=== PATIENT | female | born 1950 | race Caucasian/White ===

== ENCOUNTER → 2016-09-16 | Outpatient (CLI) | payer MEDICARE, OTHER ==
[2016-09-16 20:05] LABS: CALCIUM LEVEL 9.3 MG/DL (8.8-10.2); CREATININE FOR GFR 1.43 MG/DL (0.55-1.02)
== END ==
LOC: M LAB 10:14
PROVIDERS: ATTEND Emergency Medicine
DX: D37.8 Neoplasm of uncertain behavior of other specified digestive organs (principal)

== ENCOUNTER → 2016-11-03 | Outpatient (REF) | payer MEDICARE, OTHER ==
[2016-11-03 12:32] LABS: ANION GAP 7 MEQ/L (8-16); BLOOD UREA NITROGEN 27 MG/DL (7-18); CALCIUM LEVEL 8.9 MG/DL (8.8-10.2); CARBON DIOXIDE LEVEL 28 MEQ/L (21-32); CHLORIDE LEVEL 109 MEQ/L (98-107); CREATININE FOR GFR 0.89 MG/DL (0.55-1.02); GLOMERULAR FILTRATION RATE > 60.0 (>45); GLUCOSE, FASTING 145 MG/DL (80-110); POTASSIUM SERUM 4.9 MEQ/L (3.5-5.1); SODIUM LEVEL 144 MEQ/L (136-145)
== END ==
LOC: M LABDRWAD 11:58
PROVIDERS: ATTEND Emergency Medicine
DX: E11.9 Type 2 diabetes mellitus without complications (principal)

== ENCOUNTER → 2017-05-17 | Outpatient (REF) | payer MEDICARE, OTHER ==
[2017-05-17 12:27] LABS: BASO % 0.7 % (0.0-1.0); EOS # 0.2 K/mm3 (0.0-0.50); EOS % 2.9 % (0.0-3.0); LARGE UNSTAINED CELL # 0.2 K/mm3 (0.0-0.4); LARGE UNSTAINED CELL % 2.6 % (0.0-4.0); LYMPH # 1.8 K/mm3 (1.5-4.5); MEAN CORPUSCULAR HEMOGLOBIN 31.3 pg (27.0-33.0); MEAN CORPUSCULAR HGB CONC 33.7 g/dl (32.0-36.5); MEAN CORPUSCULAR VOLUME 92.8 fl (80.0-96.0); MONO # 0.4 K/mm3 (0.0-0.8); MONO % 6.4 % (0.0-5.0); NEUTROPHILS # 3.9 K/mm3 (1.8-7.7); NEUTROPHILS % 60.4 % (36.0-66.0); PLATELET COUNT, AUTOMATED 251 k/mm3 (150-450); RED CELL DISTRIBUTION WIDTH 13.5 % (11.5-14.5); WHITE BLOOD COUNT 6.5 K/mm3 (4.0-10.0)
[2017-05-17 12:40] LABS: ALBUMIN 3.6 GM/DL (3.2-5.2); ALBUMIN/GLOBULIN RATIO 1.09 (1.00-1.93); ALKALINE PHOSPHATASE 65 U/L (45-117); ALT/SGPT 16 U/L (12-78); ANION GAP 6 MEQ/L (8-16); AST/SGOT 7 U/L (15-37); BILIRUBIN,TOTAL 0.4 MG/DL (0.2-1.0); BLOOD UREA NITROGEN 18 MG/DL (7-18); CALCIUM LEVEL 9.1 MG/DL (8.8-10.2); CARBON DIOXIDE LEVEL 30 MEQ/L (21-32); CHLORIDE LEVEL 108 MEQ/L (98-107); CHOLESTEROL LEVEL 175 MG/DL (<200); GLOMERULAR FILTRATION RATE > 60.0 (>45); GLUCOSE, FASTING 139 MG/DL (80-110); SODIUM LEVEL 144 MEQ/L (136-145); TOTAL PROTEIN 6.9 GM/DL (6.4-8.2); TRIGLYCERIDES LEVEL 140 MG/DL (<150)
== END ==
LOC: M LAB REF 08:10
PROVIDERS: ATTEND Family Medicine
DX: E11.9 Type 2 diabetes mellitus without complications (principal)

== ENCOUNTER → 2017-11-08 | Outpatient (REF) | payer MEDICARE, OTHER ==
[2017-11-08 14:16] LABS: ALBUMIN 3.8 GM/DL (3.2-5.2); ALBUMIN/GLOBULIN RATIO 1.12 (1.00-1.93); ALKALINE PHOSPHATASE 72 U/L (45-117); ALT/SGPT 15 U/L (12-78); ANION GAP 9 MEQ/L (8-16); AST/SGOT 12 U/L (7-37); BILIRUBIN,TOTAL 0.4 MG/DL (0.2-1.0); BLOOD UREA NITROGEN 15 MG/DL (7-18); CALCIUM LEVEL 9.2 MG/DL (8.8-10.2); CARBON DIOXIDE LEVEL 29 MEQ/L (21-32); CHLORIDE LEVEL 105 MEQ/L (98-107); CREATININE FOR GFR 0.93 MG/DL (0.55-1.30); GLOMERULAR FILTRATION RATE > 60.0 (>45); GLUCOSE, FASTING 170 MG/DL (70-100); POTASSIUM SERUM 4.7 MEQ/L (3.5-5.1); SODIUM LEVEL 143 MEQ/L (136-145); TOTAL PROTEIN 7.2 GM/DL (6.4-8.2)
[2017-11-08 15:54] LABS: ESTIMATED AVERAGE GLUCOSE 171 MG/DL (60-110); HEMOGLOBIN A1c 7.6 %
== END ==
LOC: M LABDRWAD 12:37
DX: E11.36 Type 2 diabetes mellitus with diabetic cataract (principal)
CPT/HCPCS: 80053

== ENCOUNTER → 2018-02-07 | Outpatient (REF) | payer MEDICARE, OTHER ==
[2018-02-07 14:15] LABS: ALBUMIN 3.7 GM/DL (3.2-5.2); ALBUMIN/GLOBULIN RATIO 1.09 (1.00-1.93); ALKALINE PHOSPHATASE 66 U/L (45-117); ALT/SGPT 14 U/L (12-78); ANION GAP 6 MEQ/L (8-16); AST/SGOT 6 U/L (7-37); BILIRUBIN,TOTAL 0.4 MG/DL (0.2-1.0); BLOOD UREA NITROGEN 15 MG/DL (7-18); CALCIUM LEVEL 8.8 MG/DL (8.8-10.2); CARBON DIOXIDE LEVEL 29 MEQ/L (21-32); CHLORIDE LEVEL 107 MEQ/L (98-107); CHOLESTEROL LEVEL 158 MG/DL (<200); CHOLESTEROL RISK RATIO 2.872 (<5); GLOMERULAR FILTRATION RATE > 60.0 (>45); GLUCOSE, FASTING 144 MG/DL (70-100); HDL CHOLESTEROL 55 MG/DL (>40); LDL CHOLESTEROL 74.2 MG/DL (<100); NON-HDL-C 103 MG/DL; SODIUM LEVEL 142 MEQ/L (136-145); TOTAL PROTEIN 7.1 GM/DL (6.4-8.2); TRIGLYCERIDES LEVEL 144 MG/DL (<150)
[2018-02-07 14:37] LABS: CREATININE, URINE 21.7 MG/DL; MALB URINE SIEMENS 13.5 MG/L; MAU/CREAT RATIO 62.2 MCG/MG (0.0-30.0)
[2018-02-07 14:45] LABS: ESTIMATED AVERAGE GLUCOSE 174 MG/DL (60-110); HEMOGLOBIN A1c 7.7 %
== END ==
LOC: M LABDRWAD 13:33
DX: E11.36 Type 2 diabetes mellitus with diabetic cataract (principal)
CPT/HCPCS: 80053

== ENCOUNTER → 2018-10-25 | Outpatient (CLI) | payer MEDICARE, OTHER ==
--- NOTE | 2018-10-25 10:38 | REP ---
CHEST PA AND LATERAL: 10/25/2018. Clinical history: Dyspnea. Findings: No prior study. Lungs are hyperinflated. Some flattening of the diaphragms, increased AP diameter and prominent retrosternal clear space. Pulmonary arteries are prominent suggesting pulmonary artery hypertension on the basis of COPD. Some underlying basilar fibrotic changes and some peribronchial thickening which might reflect reactive airway disease or bronchitis. There is some increased density of the inferior aspect of the right hilum. It is slightly more prominent than on the left. The aorta is mildly calcified at the arch, unremarkable for age and without aneurysm. Bones were intact. There is no compression deformity or focal lesion. No cardiomegaly or pulmonary edema. Bony thorax without compression deformity. Some degenerative changes in the lower thoracic spine, greatest at T11-T12. No free air under the diaphragms. Impression: 1. Hyperinflation with COPD, some pulmonary artery hypertension suspected and some peribronchial thickening that might reflect reactive airway disease or bronchitis. 2. Some increased density and slight fullness of the inferior aspect of the right hilum compared to the left. I could not exclude a focal lesion here. CT scan of the chest recommended in the absence of any recent prior studies for comparison. Electronically Signed by Sixto Andrew MD 10/25/2018 02:20 P
== END ==
LOC: M ADAMS 08:31
PROVIDERS: ATTEND Physician Assistant
DX: R06.03 Acute respiratory distress (principal)

== ENCOUNTER → 2019-02-02 | Outpatient (REF) | payer MEDICARE, OTHER ==
[2019-02-02 16:49] LABS: BASO # 0.1 10^3/uL (0.0-0.2); BASO % 0.5 % (0.0-1.0); EOS # 0.6 10^3/uL (0.0-0.50); EOS % 6.5 % (0.0-3.0); HEMATOCRIT 37.2 % (36.0-47.0); HEMOGLOBIN 11.6 g/dl (12.0-15.5); LYMPH % 20.8 % (24.0-44.0); MEAN CORPUSCULAR HEMOGLOBIN 29.1 pg (27.0-33.0); MEAN CORPUSCULAR HGB CONC 31.2 g/dl (32.0-36.5); MEAN CORPUSCULAR VOLUME 93.2 fl (80.0-96.0); MONO # 0.7 10^3/uL (0.0-0.8); MONO % 7.2 % (0.0-5.0); NEUTROPHILS # 6.2 10^3/uL (1.8-7.7); NEUTROPHILS % 64.8 % (36.0-66.0); PLATELET COUNT, AUTOMATED 246 10^3/uL (150-450); RED BLOOD COUNT 3.99 10^6/uL (4.00-5.40); WHITE BLOOD COUNT 9.5 10^3/uL (4.0-10.0)
[2019-02-02 17:11] LABS: HEMOGLOBIN A1c 7.4 %
[2019-02-02 17:16] LABS: ALBUMIN 3.4 GM/DL (3.2-5.2); ALT/SGPT 20 U/L (12-78); BILIRUBIN,TOTAL 0.3 MG/DL (0.2-1.0); BLOOD UREA NITROGEN 20 MG/DL (7-18); CALCIUM LEVEL 8.4 MG/DL (8.8-10.2); CARBON DIOXIDE LEVEL 28 MEQ/L (21-32); CHLORIDE LEVEL 106 MEQ/L (98-107); CHOLESTEROL LEVEL 177 MG/DL (<200); CHOLESTEROL RISK RATIO 2.641 (<5); CREATININE FOR GFR 0.91 MG/DL (0.55-1.30); FREE T4 1.04 NG/DL (0.76-1.46); GLOMERULAR FILTRATION RATE > 60.0 (>39); GLUCOSE, FASTING 133 MG/DL (70-100); HDL CHOLESTEROL 67 MG/DL (>40); LDL CHOLESTEROL 89 MG/DL (<100); NON-HDL-C 110 MG/DL; SODIUM LEVEL 141 MEQ/L (136-145); TOTAL PROTEIN 7.2 GM/DL (6.4-8.2); TRIGLYCERIDES LEVEL 106 MG/DL (<150)
== END ==
LOC: M SFHCADAM 08:19
PROVIDERS: ATTEND Family Medicine
DX: E11.9 Type 2 diabetes mellitus without complications (principal); E78.5 Hyperlipidemia, unspecified; I10 Essential (primary) hypertension

== ENCOUNTER → 2019-06-30 | Outpatient (CLI) | payer MEDICARE, OTHER ==
[2019-06-30 18:05] LABS: BASO # 0.1 10^3/uL (0.0-0.2); BASO % 0.8 % (0.0-1.0); EOS # 0.2 10^3/uL (0.0-0.5); EOS % 3.6 % (0.0-3.0); HEMATOCRIT 39.5 % (36.0-47.0); HEMOGLOBIN 12.6 g/dl (12.0-15.5); LYMPH # 1.7 10^3/uL (1.5-5.0); LYMPH % 26.5 % (24.0-44.0); MEAN CORPUSCULAR HEMOGLOBIN 30.3 pg (27.0-33.0); MEAN CORPUSCULAR HGB CONC 31.9 g/dl (32.0-36.5); MONO # 0.6 10^3/uL (0.0-0.8); MONO % 9.6 % (0.0-5.0); NEUTROPHILS # 3.8 10^3/uL (1.5-8.5); NEUTROPHILS % 59.2 % (36.0-66.0); PLATELET COUNT, AUTOMATED 229 10^3/uL (150-450); RED BLOOD COUNT 4.16 10^6/uL (4.00-5.40); WHITE BLOOD COUNT 6.4 10^3/uL (4.0-10.0)
[2019-06-30 18:10] LABS: ALBUMIN 3.9 GM/DL (3.2-5.2); BILIRUBIN,TOTAL 0.5 MG/DL (0.2-1.0); CALCIUM LEVEL 9.3 MG/DL (8.8-10.2); CHOLESTEROL RISK RATIO 2.507 (<5); CREATININE FOR GFR 0.99 MG/DL (0.55-1.30); POTASSIUM SERUM 4.6 MEQ/L (3.5-5.1); TOTAL PROTEIN 7.2 GM/DL (6.4-8.2)
[2019-06-30 18:19] LABS: HEMOGLOBIN A1c 6.9 %
[2019-06-30 18:32] LABS: CREATININE, URINE 41.3 MG/DL; MAU/CREAT RATIO 48.4 MCG/MG (0.0-30.0)
== END ==
LOC: M LABDRWAD 08:49
PROVIDERS: ATTEND Family Medicine
DX: E11.36 Type 2 diabetes mellitus with diabetic cataract (principal)

== ENCOUNTER → 2020-09-17 | Outpatient (REF) | payer MEDICARE, OTHER ==
[2020-09-18 13:26] LABS: BASO # 0.1 10^3/uL (0.0-0.2); BASO % 0.8 % (0.0-1.0); EOS # 0.2 10^3/uL (0.0-0.5); EOS % 2.6 % (0.0-3.0); HEMATOCRIT 40.2 % (36.0-47.0); HEMOGLOBIN 12.7 g/dl (12.0-15.5); LYMPH # 2.1 10^3/uL (1.5-5.0); LYMPH % 27.2 % (24.0-44.0); MEAN CORPUSCULAR HEMOGLOBIN 29.2 pg (27.0-33.0); MEAN CORPUSCULAR HGB CONC 31.6 g/dl (32.0-36.5); MEAN CORPUSCULAR VOLUME 92.4 fl (80.0-96.0); MONO # 0.6 10^3/uL (0.0-0.8); MONO % 8.1 % (0.0-5.0); NEUTROPHILS # 4.7 10^3/uL (1.5-8.5); NEUTROPHILS % 61.2 % (36.0-66.0); PLATELET COUNT, AUTOMATED 272 10^3/uL (150-450); RED BLOOD COUNT 4.35 10^6/uL (4.00-5.40); WHITE BLOOD COUNT 7.6 10^3/uL (4.0-10.0)
[2020-09-18 14:06] LABS: HEMOGLOBIN A1c 7.2 %
[2020-09-18 14:15] LABS: BILIRUBIN,TOTAL 0.7 MG/DL (0.2-1.0); CALCIUM LEVEL 9.7 MG/DL (8.8-10.2); CHOLESTEROL RISK RATIO 2.703 (<5); CREATININE FOR GFR 1.07 MG/DL (0.55-1.30); GLOMERULAR FILTRATION RATE 53.8 (>39); POTASSIUM SERUM 5.8 MEQ/L (3.5-5.1); TOTAL PROTEIN 7.3 GM/DL (6.4-8.2)
== END ==
LOC: M LABDRWAD 12:39
PROVIDERS: ATTEND Physician Assistant Medical
DX: E11.9 Type 2 diabetes mellitus without complications (principal); E78.2 Mixed hyperlipidemia; K21.9 Gastro-esophageal reflux disease without esophagitis

== ENCOUNTER → 2020-09-18 | Outpatient (REF) | payer MEDICARE, OTHER ==
[2020-09-18 14:05] LABS: MALB URINE SIEMENS 36.5 MG/L; MAU/CREAT RATIO 20.3 MCG/MG (0.0-30.0)
== END ==
LOC: M LAB REF 12:42
PROVIDERS: ATTEND Physician Assistant Medical
DX: E11.9 Type 2 diabetes mellitus without complications (principal); E78.2 Mixed hyperlipidemia; K21.9 Gastro-esophageal reflux disease without esophagitis

== ENCOUNTER 2020-10-17 08:00 | Inpatient (IN) | payer MEDICARE, OTHER ==
[2020-10-17] VITALS (7 sets, daily range): BP systolic 104–168; BP diastolic 48–75
[~2020-10-17] VITALS: Ht 160 cm; Wt 61.5 kg
--- OUTSIDE RECORDS SUMMARY | 2020-10-17 08:05 | CCD | Continuity of Care Document ---
Author Author Krystal CASH AR Organization Unknown Address [address] [place] [address] Phone [phone] Care Team Providers Care Hotel Operations Manager Name Role Phone Helio Rizo MD AUTM [phone] Jesús Goode MD AUTM [phone] [facility] - Gastroenterology AUTM Problems Active Problems Provider Date Type 2 diabetes mellitus Karla Graves M.D. Onset: 12/2010 Essential hypertension Karla Graves M.D. Onset: 01/05 Mixed hyperlipidemia Karla Graves M.D. Onset: 011 Social History Type Date Description Comments Sex Unknown Tobacco Use Start: Unknown End: Unknown Current Cigarette Sm oker Packs Daily 1 Tobacco Use Start: Unknown Never Used Smokeless Tobacco ETOH Use Denies alcohol use Tobacco Use Reviewed: 06/12/20 Patient is a current smoker, smokes every day has cut down to 4-5 cigarettes a day from a pack or more. She is a stress smoker. Smoking since age 16. Recreational Drug Use Denies Drug Use Smoking Status Reviewed: 09/14/20 Patient is a current smoker, smokes every day has cut down to 4-5 cigarettes a day from a pack or more. She is a stress smoker. Smoking since age 16. Exercise Type/Frequency Exercises regularly Sun Exposure Does not use sunscreen Seat Belt/Car Seat Always uses seat belt Smoke Alarms Yes Smoke Alarms Carbon Monoxide Detector: Yes Allergies, Adverse Reactions, Alerts Active Allergies Reaction Severity Comments Date Penicillin SOB, feels funny 05/18/2012 Seafood 11/22/2013 Inactive Allergies NKDA 09/07/2004 Medications Active Medications SIG Qnty Indications Ordering Provide r Date Sucralfate 1gm Tablets take 1 tablet by mouth up to four times daily before meals and at bedtime 360tabs K21 .9 Karla Graves M.D. 09/14/2020 Pantoprazole Sodium 40mg Tablets D R take one tablet by mouth every day for heartburn/acid reflux 30tabs K20. 9 Karla Graves M.D. 09/14/2020 Famotidine 40mg Tablets take one tablet by mouth every evening 90tabs K21.9 Karla Graves M.D. 05/2020 Metformin HCL 1000mg Tablets take one tablet by mouth twice a day with meals for diabetes 180tabs E11.9 Karla Graves M.D. 03/12/2020 Furosemide 20mg Tablets take one tablet by mouth every morning 90tabs I10 Karla Graves M.D. 05/2020 Proair HFA 108(90Base) mcg/Act Aer osol 2 puffs every 4 hours as needed 8.500gm R05 Karla Graves M.D. 11/28/2018 Accu-Chek Multiclix Lancets Misc use to check blood glucose up to twice a day 100units Karla Graves M.D. 12/11/2012 Atenolol 25mg Tablets 1 by mouth every day 90tabs I10 Karla Graves M.D. 012 Accu-Chek Joanna Glucometer René e for testing bid Sample 250.02 Karla Graves M.D. 011 Accu-Chek Joanna Test Strips Strip s for use with Glucometer for bid testing 100units 250.02 Brandy Graves M.D. 02/11/2011 Crestor 5mg Tablets 1 by mouth every day 90tabs E11.9 Karla Graves M.D. 05/16/2008 Alcohol Swabs use twice daily as directed 1Box 250.02 Karla Dumont ams, M.D. 03/04/2005 Asa 81mg Tablets 1 Tab PO OD Unknown Tylenol 325mg Tablets every 4-6 hours as needed for headaches Unknown History Medications Dexilant 60mg Capsules DR take one tablet by mouth every day for heartburn/acid reflux 90caps K20.9 Karla Graves M.D. 06/12/2020 - 09/14/2020 Immunizations CPT Code Status Date Vaccine Lot # [id number] Given 06/12/2019 Influenza Virus Vaccine, Quadrivalent,age 3 and up,multidose vial [id number] Q2038 Given 05/09/2018 Influenza Vaccine (Fluzone)( medicare) [id number] 25574 Given 05/09/2018 Influenza Virus Vaccine, Quadrivalent,age 3 and up,multidose vial Q2038 Given 05/23/2017 Influenza Vaccine (Fluzone)( medicare) [id number] 94744 Given 05/23/2017 Pneumococcal Vaccine [id number] Q2038 Given 07/05/2016 Influenza Vaccine (Fluzone)( medicare) [id number] 88271 Given 09/02/2015 Prevnar 13 For Adults [id number] 53405 Given 07/14/2015 Zostavax Q2038 Given 06/18/2015 Influenza Vaccine (Fluzone)( medicare) [id number] 87881 Given 05/29/2013 Influenza Vaccination [id number] 74146 Given 05/30/2012 Influenza Vaccination 26803 Given 05/30/2012 Influenza Vaccination [id number] 74149 Given 03/30/2012 Boostrix (Tdap) Tetnus, Diphtheria Toxoids & Acellular Pertussis [id number] 95632 Given 05/25/2011 Influenza Vaccination [id number] 55890 Given 05/26/2010 Influenza Vaccination/preser vative free [id number] 40602 Given 06/23/2009 Influenza Vaccination [id number] Vital Signs Date Vital Result Comment 09/14/2020 8:15am BP Systolic 173 mmHg BP Diastolic 83 mmHg BP Systolic Recheck 148 mmHg BP Diastolic Recheck 83 mmHg Heart Rate 85 /min Body Temperature 97.6 F Respiratory Rate 20 /min Height 63 inches 5'3" Weight 143.00 lb O2 % BldC Oximetry 99 % Peak Expiratory Flow Rate 317 Estimated Peak Flow Rate [place] Body Weight 115 lb BMI (Body Mass Index) 25.3 kg/m2 06/12/2020 10:37am BP Systolic 140 mmHg BP Diastolic 65 mmHg Heart Rate 82 /min Body Temperature 97.7 F Respiratory Rate 18 /min Height 63 inches 5'3" Weight 151.50 lb O2 % BldC Oximetry 99 % Peak Expiratory Flow Rate 310 Estimated Peak Flow Rate [place] Body Weight 115 lb BMI (Body Mass Index) 26.8 kg/m2 Results Test Acquired Date Facility Test Result H/L Range Note Microalbumin Random 09/18/[address] [facility] [place] [address] [phone] Creatinine, Urine 179.0 mg/dL Normal Malb Urine Siemens 36.5 mg/L Normal Remy/Creat Ratio 20.3 MCG/MG Normal 0.0-30.0 1 Hemoglobin A1c 09/17/2020 [facility] nter [phone] Hemoglobin A1c 7.2 % Normal 2 Estimated Average Glucose 160 mg/dL High 60-110 Lipid Panel 09/17/2020 [facility] nter [phone] Triglycerides Level 140 mg/dL Normal <150 Cholesterol Level 146 mg/dL Normal <200 HDL Cholesterol 54 mg/dL Normal >40 LDL Cholesterol 64 mg/dL Normal <100 Non-HDL-C 92 mg/dL Normal Cholesterol Risk Ratio 2.703 Normal <5 Comprehensive Metabolic Profil 09/17/2020 [facility] [phone] Glucose, Fasting 142 mg/dL High 70-100 Blood Urea Nitrogen 15 mg/dL Normal 7-18 Creatinine For GFR 1.07 mg/dL Normal 0.55-1.30 Glomerular Filtration Rate 53.8 Normal >39 3 Sodium Level 140 mEq/L Normal 136-145 Potassium Serum 5.8 mEq/L High 3.5-5.1 Chloride Level 106 mEq/L Normal 98-107 Carbon Dioxide Level 27 mEq/L Normal 21-32 Anion Gap 7 mEq/L Low 8-16 Calcium Level 9.7 mg/dL Normal 8.8-10.2 Ast/Sgot 7 U/L Normal 7-37 Alt/SGPT 13 U/L Normal 12-78 Alkaline Phosphatase 55 U/L Normal 45-117 Bilirubin,Total 0.7 mg/dL Normal 0.2-1.0 Total Protein 7.3 GM/DL Normal 6.4-8.2 Albumin 4.0 GM/DL Normal 3.2-5.2 Albumin/Globulin Ratio 1.2 Normal 1.2-2.2 CBC With Differential 09/17/2020 [facility] [phone] White Blood Count 7.6 10 Normal 4.0-10.0 Red Blood Count 4.35 10 Normal 4.00-5.40 Hemoglobin 12.7 g/dL Normal 12.0-15.5 Hematocrit 40.2 % Normal 36.0-47.0 Mean Corpuscular Volume 92.4 fl Normal 80.0-96.0 Mean Corpuscular Hemoglobin 29.2 pg Normal 27.0-33.0 Mean Corpuscular HGB Conc 31.6 g/dL Low 32.0-36.5 Red Cell Distribution Width 13.2 % Normal 11.5-14.5 Platelet Count, Automated 272 10 Normal 150-450 Neutrophils % 61.2 % Normal 36.0-66.0 Lymph % 27.2 % Normal 24.0-44.0 [place] % 8.1 % High 0.0-5.0 Eos % 2.6 % Normal 0.0-3.0 Baso % 0.8 % Normal 0.0-1.0 Immature Granulocyte % 0.1 % Normal 0-3.0 Nucleated Red Blood Cell % 0.0 % Normal 0-0 Neutrophils # 4.7 10 Normal 1.5-8.5 Lymph # 2.1 10 Normal 1.5-5.0 [place] # 0.6 10 Normal 0.0-0.8 Eos # 0.2 10 Normal 0.0-0.5 Baso # 0.1 10 Normal 0.0-0.2 1 THE [place] [employer] ASSOC[employer] ATION STATES THAT MICROALBUMINURIA IS PRESENT IF THE MICROALBUMIN/CREATININE RATIO EXCEEDS 30 MCG/MG. THE THRESHOLD FOR CLINICAL ALBUMINURIA IS REACHED AT 300 MCG/MG. THE CLASSIFICATION OF A PATIENT SHOULD BE BASED UPON AT LEAST 2 OF 3 ABNORMAL RESULTS ON SPECIMENS COLLECTED WITHIN A 3 TO 6 MONTH TIME FRAME. 2 REFERENCE RANGES: <=5.6% NORMAL 5.7-6.4% SUGGESTS IMPAIRED GLUCOSE META BOLISM/PREDIABETIC >= 6.5% ABNORMAL 3 Units are mL/min/1.73 m2 Chronic Kidney Disease Staging per NKF: Stage I & II GFR >=60 Normal to Mildly Decreased Stage III GFR 30-59 Moderately Decreased Stage IV GFR 15-29 Severely Decreased Stage V GFR <15 Very Little GFR Left ESRD GFR <15 on POUCH MAKING MACHINE OPERATOR Procedures Date Code Description Status 06/12/2020 089557657 Diabetic Foot Exam Completed 07/12/2014 [id number] Mammogram Completed 06/11/2013 [id number] Bone Mineral Density Test Comple [place] Description No Information Available Encounters Type Date Location Provider Dx Diagnosis Office Visit 09/14/2020 8:15a Main Office Desirae Cash PA E11.9 Type 2 diabetes mellitus without complications I10 Essential (primary) hyperten layne E78.2 Mixed hyperlipidemia K21.9 Gastro-esophageal reflux dis ease without esophagitis Office Visit 06/12/2020 10:30a Main Office Desirae Cash PA Z00.00 Encntr for general adult medical exam w/o abnormal findings E11.9 Type 2 diabetes mellitus wit hout complications I10 Essential (primary) hyperten layne E78.2 Mixed hyperlipidemia K21.9 Gastro-esophageal reflux dis ease without esophagitis Assessments Date Code Description Provider 09/14/2020 E11.9 Type 2 diabetes mellitus without complications Desirae Cash PA 09/14/2020 I10 Essential (primary) hypertension Desirae Cash PA 09/14/2020 E78.2 Mixed hyperlipidemia Dseirae Cash PA 09/14/2020 K21.9 Gastro-esophageal reflux disease without esophagitis Desirae Cash PA 06/12/2020 Z00.00 Encounter for genera l adult medical examination without abnormal findings Desirae Cash PA 06/12/2020 E11.9 Type 2 diabetes mellitus without complications Desirae Cash PA 06/12/2020 I10 Essential (primary) hypertension Desirae Cash PA 06/12/2020 E78.2 Mixed hyperlipidemia Desirae Cash PA 06/12/2020 K21.9 Gastro-esophageal reflux disease without esophagitis Desriae Cash PA Plan of Treatment Future Appointment(s):* 12/14/2020 8:15 am - Desirae Cash PA at Main Office Functional Status Functional Condition Comment Date Status Bifocal glasses Active Independent with all ADL's Activ e Independent with all IADL's Acti ve Mental Status Mental Condition Comment Date Status None Active Referrals Refer to Reason for Referral Status Appt Date Mandaen Gastro GERD with esophagitis. needs consult and EGD please. Scheduled 09/15/2020 [address] [place] [address] [phone]
--- OUTSIDE RECORDS SUMMARY | 2020-10-17 08:05 | CCD | Continuity of Care Document ---
Author Author Krystal CASH HI Organization Unknown Address [address] [place] [address] Phone [phone] Care Team Providers Care Jig Boring Machine Set Up Operator Name Role Phone Helio Rizo MD AUTM [phone] Jesús Goode MD AUTM [phone] [facility] - Gastroenterology AUTM Problems Active Problems [...] SIG Qnty Indications Ordering Provide r Date Ondansetron 8mg Tablets Dispers take one by mouth twice a day as needed nausea 30tabs Karla Graves M.D. 09/21/2020 Sucralfate 1gm Tablets take 1 tablet by [...] CPT Code Status Date Vaccine Lot # [id number] Given 06/12/2019 Influenza Virus Vaccine, Quadrivalent,age 3 and up,multidose vial [id number] Q2038 Given 05/09/2018 Influenza Vaccine (Fluzone)( medicare) [id number] 56680 Given 05/09/2018 Influenza Virus Vaccine, Quadrivalent,age 3 and up,multidose vial Q2038 Given 05/23/2017 Influenza Vaccine (Fluzone)( medicare) [id number] 87430 Given 05/23/2017 Pneumococcal Vaccine [id number] Q2038 Given 07/05/2016 Influenza Vaccine (Fluzone)( medicare) [id number] 52239 Given 09/02/2015 Prevnar 13 For Adults [id number] 71994 Given 07/14/2015 Zostavax Q2038 Given 06/18/2015 Influenza Vaccine (Fluzone)( medicare) [id number] 50541 Given 05/29/2013 Influenza Vaccination [id number] 15550 Given 05/30/2012 Influenza Vaccination 83428 Given 05/30/2012 Influenza Vaccination [id number] 19485 Given 03/30/2012 Boostrix (Tdap) Tetnus, Diphtheria Toxoids & Acellular Pertussis [id number] 57192 Given 05/25/2011 Influenza Vaccination [id number] 55250 Given 05/26/2010 Influenza Vaccination/preser vative free [id number] 16848 Given 06/23/2009 Influenza Vaccination [id number] Vital Signs Date Vital Result Comment 09/14/2020 8:15am BP Systolic 173 mmHg BP Diastolic 83 mmHg BP Systolic Recheck 148 mmHg BP Diastolic Recheck 83 mmHg Heart Rate 85 /min Body Temperature 97.6 F Respiratory Rate 20 /min Height 63 inches 5'3" Weight 143.00 lb O2 % BldC Oximetry 99 % Peak Expiratory Flow Rate 317 Estimated Peak Flow Rate [place] Body Weight 115 lb BMI (Body Mass Index) 25.3 kg/m2 06/12/2020 10:37am BP Systolic 140 mmHg BP Diastolic 65 mmHg Heart Rate 82 /min Body Temperature 97.7 F Respiratory Rate 18 /min Height 63 inches 5'3" Weight 151.50 lb O2 % BldC Oximetry 99 % Peak Expiratory Flow Rate 310 Estimated Peak Flow Rate [place] Body Weight 115 lb BMI (Body Mass Index) 26.8 kg/m2 Results Test Acquired Date Facility Test Result H/L Range Note Microalbumin Random 09/18/2020 [facility] [place] [address] [phone] Creatinine, Urine 179.0 mg/dL Normal Malb Urine Siemens 36.5 mg/L Normal Remy/Creat Ratio 20.3 MCG/MG Normal 0.0-30.0 1 Hem[facility] [phone] Hemoglobin A1c 7.2 % Normal 2 Estimated Average Glucose 160 mg/dL High 60-110 Lipid Panel 09/17/2020 [facility] [phone] Triglycerides Level 140 mg/dL Normal <150 Cholesterol Level 146 mg/dL Normal <200 HDL Cholesterol 54 mg/dL Normal >40 LDL Cholesterol 64 mg/dL Normal <100 Non-HDL-C 92 mg/dL Normal Cholesterol Risk Ratio 2.703 Normal <5 Comprehensive Metabolic Profil 09/17/2020 [facility] [phone] Glucose, Fasting 142 mg/dL High 70-100 Blood [...] 1.2 Normal 1.2-2.2 CBC With Differential 09/17/2020 [facility] [phone] White Blood Count 7.6 10 Normal 4.0-10.0 [...] 36.0-66.0 Lymph % 27.2 % Normal 24.0-44.0 [place] % 8.1 % High 0.0-5.0 Eos % 2.6 % Normal 0.0-3.0 Baso % 0.8 % Normal 0.0-1.0 Immature Granulocyte % 0.1 % Normal 0-3.0 Nucleated Red Blood Cell % 0.0 % Normal 0-0 Neutrophils # 4.7 10 Normal 1.5-8.5 Lymph # 2.1 10 Normal 1.5-5.0 [place] # 0.6 10 Normal 0.0-0.8 Eos # 0.2 10 Normal 0.0-0.5 Baso # 0.1 10 Normal 0.0-0.2 1 THE [place] DIABETES ASSOCI ATION STATES THAT MICROALBUMINURIA IS [...] Little GFR Left ESRD GFR <15 on SHOOTER'S HELPER Procedures Date Code Description Status 06/12/2020 [id number] Diabetic Foot Exam Completed 07/12/2014 [id number] Mammogram Completed 06/11/2013 [id number] Bone Mineral Density Test Comple Coherent Labs Description No Information Available Encounters Type Date Location Provider Dx Diagnosis Office Visit 09/14/2020 8:15a Main Office Desirae Cash PA E11.9 Type 2 diabetes mellitus without complications I10 Essential (primary) hyperten layne E78.2 Mixed hyperlipidemia K21.9 Gastro-esophageal reflux dis ease without esophagitis F17.210 Nicotine dependence, cigaret precious, uncomplicated Office Visit 06/12/2020 10:30a Main Office Desirae [...] Desirae Cash PA 09/14/2020 E78.2 Mixed hyperlipidemia Desirae Cash PA 09/14/2020 K21.9 Gastro-esophageal reflux disease without esophagitis Desirae Cash PA 09/14/2020 F17.210 Nicotine dependence, cigarettes, uncomplicated Desirae Cash PA 06/12/2020 Z00.00 Encounter for genera l adult medical examination without abnormal findings Desirae Cash PA 06/12/2020 E11.9 Type 2 diabetes mellitus without complications Desirae Cash PA 06/12/2020 I10 Essential (primary) hypertension Desirae Cash PA 06/12/2020 E78.2 Mixed hyperlipidemia Desirae Cash PA 06/12/2020 K21.9 Gastro-esophageal reflux disease without esophagitis Desirae Cash PA Plan of Treatment Future Appointment(s):* 12/14/2020 8:15 am - Desirae Cash PA at Main Office Functional Status Functional Condition Comment Date Status Bifocal glasses Active Independent with all ADL's Activ e Independent with all IADL's Acti ve Mental Status Mental Condition Comment Date Status None Active Referrals Refer to Reason for Referral Status Appt Date Ca[facility] Gastro GERD with esophagitis. needs consult and EGD please. Scheduled 09/15/2020 [address] [place] [address] [phone]
--- OUTSIDE RECORDS SUMMARY | 2020-10-17 08:05 | CCD | Continuity of Care Document ---
Author Krystal Matthews RP-C Organization Unknown Address [address] [place] [address], [address] [place] [address] Phone [phone] Care Team Providers Care Interior Assemblies Installer Name Role Phone Desirae Roberts AUTM Problems Active Problems Provider Date Essential hypertension SAFIA Espinosa Onset: Social History Type Date Description Comments Sex Unknown ETOH Use Denies alcohol use Tobacco Use Start: Unknown Light tobacco smoker (10 or fewe r cigarettes/day) 4-5 Cigs per day Allergies, Adverse Reactions, Alerts Active Allergies Reaction Severity Comments Date Penicillin V 10/14/2020 Seafood 10/14/2020 Medications Active Medications SIG Qnty Indications Ordering Provide r Date Aspirin [address] Ley Unknown Crestor 5mg Tablets Daily Unknown Atenolol 25mg Tablets Daily Unknown Furosemide 20mg Tablets 1 by mouth every day Unknown Metformin HCL 500mg Tablets 2 tabs bid Unknown Sucralfate 1gm Tablets 1 gm by mouth four times a day Unknown Pantoprazole Sodium 40mg Tablets DR Daily Unknown Ondansetron 8mg Tablets Dispers bid prn Unknown Immunizations Description No Information Available Vital Signs Date Vital Result Comment 10/16/2020 12:53pm BP Systolic 130 mmHg BP Diastolic 70 mmHg Height 63 inches 5'3" Weight 132.00 lb BMI (Body Mass Index) 23.4 kg/m2 [place] Body Weight 115 lb Weight 59.875 kg BSA (Body Surface Area) 1.62 m2 Results Description No Information Available Procedures Description No Information Available Medical Devices Description No Information Available Encounters Description No Information Available Assessments Date Code Description Provider 10/16/2020 R11.2 Nausea with vomiting, unspecifie d SAFIA Espinosa 10/16/2020 R10.13 Epigastric pain SAFIA Palacios Plan of Treatment No Information Available Functional Status Description No Information Available Mental Status Description No Information Available Referrals Refer to Dr Reason for Referral Status Appt Date Agustín Estrada M.D. GERD w/esophagitis, EGD consult Sche duled 10/16/2020 [facility] [address], [address] [place] [address] [phone]
--- OUTSIDE RECORDS SUMMARY | 2020-10-17 08:05 | CCD | Continuity of Care Document ---
Author Author Krystal CASH DC Organization Unknown Address [address] [place] [address] Phone [phone] Care Team Providers Care Master Automotive Glass Technician Name Role Phone Helio Rizo MD AUTM [phone] Jesús Goode MD AUTM [phone] [facility] AUTM Problems Active Problems [...] CPT Code Status Date Vaccine Lot # [id number] Given 06/12/2019 Influenza Virus Vaccine, Quadrivalent,age 3 and up,multidose vial [id number] Q2038 Given 05/09/2018 Influenza Vaccine (Fluzone)( medicare) [id number] 68141 Given 05/09/2018 Influenza Virus Vaccine, Quadrivalent,age 3 and up,multidose vial Q2038 Given 05/23/2017 Influenza Vaccine (Fluzone)( medicare) [id number] 25835 Given 05/23/2017 Pneumococcal Vaccine [id number] Q2038 Given 07/05/2016 Influenza Vaccine (Fluzone)( medicare) [id number] 75261 Given 09/02/2015 Prevnar 13 For Adults [id number] 86614 Given 07/14/2015 Zostavax Q2038 Given 06/18/2015 Influenza Vaccine (Fluzone)( medicare) [id number] 43304 Given 05/29/2013 Influenza Vaccination [id number] 23395 Given 05/30/2012 Influenza Vaccination 17761 Given 05/30/2012 Influenza Vaccination [id number] 81266 Given 03/30/2012 Boostrix (Tdap) Tetnus, Diphtheria Toxoids & Acellular Pertussis [id number] 84139 Given 05/25/2011 Influenza Vaccination [id number] 19457 Given 05/26/2010 Influenza Vaccination/preser vative free [id number] 74533 Given 06/23/2009 Influenza Vaccination [id number] Vital Signs Date Vital Result Comment 09/14/2020 8:15am BP Systolic 173 mmHg BP Diastolic 83 mmHg BP Systolic Recheck 148 mmHg BP Diastolic Recheck 83 mmHg Heart Rate 85 /min Body Temperature 97.6 F Respiratory Rate 20 /min Height 63 inches 5'3" Weight 143.00 lb O2 % BldC Oximetry 99 % Peak Expiratory Flow Rate 317 Estimated Peak Flow Rate [place] Body Weight 115 lb BMI (Body Mass Index) 25.3 kg/m2 06/12/2020 10:37am BP Systolic 140 mmHg BP Diastolic 65 mmHg Heart Rate 82 /min Body Temperature 97.7 F Respiratory Rate 18 /min Height 63 inches 5'3" Weight 151.50 lb O2 % BldC Oximetry 99 % Peak Expiratory Flow Rate 310 Estimated Peak Flow Rate [place] Body Weight 115 lb BMI (Body Mass Index) 26.8 kg/m2 Results Test Acquired Date Facility Test Result H/L Range Note Microalbumin Random 09/18/[address] [facility] [place] [address] [phone] Creatinine, Urine 179.0 mg/dL Normal Malb Urine Siemens 36.5 mg/L Normal Remy/Creat Ratio 20.3 MCG/MG Normal 0.0-30.0 1 Hemoglobin A1c 09/17/2020 [facility] nter [phone] Hemoglobin A1c 7.2 % Normal 2 Estimated Average Glucose 160 mg/dL High 60-110 Lipid Panel 09/17/2020 [facility] [phone] Triglycerides Level 140 mg/dL Normal <150 Cholesterol Level 146 mg/dL Normal <200 HDL Cholesterol 54 mg/dL Normal >40 LDL Cholesterol 64 mg/dL Normal <100 Non-HDL-C 92 mg/dL Normal Cholesterol Risk Ratio 2.703 Normal <5 Comprehensive Metabolic Profil 09/17/2020 [facility] [phone] Glucose, Fasting 142 mg/dL High 70-100 Blood [...] 1.2 Normal 1.2-2.2 CBC With Differential 09/17/2020 [facility] [phone] White Blood Count 7.6 10 Normal 4.0-10.0 [...] 36.0-66.0 Lymph % 27.2 % Normal 24.0-44.0 [place] % 8.1 % High 0.0-5.0 Eos % 2.6 % Normal 0.0-3.0 Baso % 0.8 % Normal 0.0-1.0 Immature Granulocyte % 0.1 % Normal 0-3.0 Nucleated Red Blood Cell % 0.0 % Normal 0-0 Neutrophils # 4.7 10 Normal 1.5-8.5 Lymph # 2.1 10 Normal 1.5-5.0 [place] # 0.6 10 Normal 0.0-0.8 Eos # 0.2 10 Normal 0.0-0.5 Baso # 0.1 10 Normal 0.0-0.2 1 THE [place] DIAB[employer]ES ASSOC[employer] ATION STATES THAT MICROALBUMINURIA IS [...] Little GFR Left ESRD GFR <15 on MASTER AUTOMOTIVE GLASS TECHNICIAN Procedures Date Code Description Status 06/12/2020 [id number] Diabetic Foot Exam Completed 07/12/2014 [id number] Mammogram Completed 06/11/2013 [id number] Bone Mineral Density Test Comple [facility] Description No Information Available Encounters Type Date [...] to Reason for Referral Status Appt Date [facility] G[facility] with esophagitis. needs consult and EGD please. Scheduled 09/15/2020 [address] [place] [address] [phone]
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
--- OUTSIDE RECORDS SUMMARY | 2020-10-17 08:06 | CCD | Continuity of Care Document ---
Author Author Krystal CASH OR Organization Unknown Address [address] [place] [address] Phone [phone] Care Team Providers Care Manufacturing Supervisor Name Role Phone Helio Rizo MD AUTM [phone] Jesús Goode MD AUTM [phone] [facility] AUTM Problems Active Problems [...] CPT Code Status Date Vaccine Lot # [id number] Given 06/12/2019 Influenza Virus Vaccine, Quadrivalent,age 3 and up,multidose vial [id number] Q2038 Given 05/09/2018 Influenza Vaccine (Fluzone)( medicare) [id number] 76954 Given 05/09/2018 Influenza Virus Vaccine, Quadrivalent,age 3 and up,multidose vial [id number] Given 05/23/2017 Influenza Vaccine (Fluzone)( medicare) [id number] 07176 Given 05/23/2017 Pneumococcal Vaccine [id number] Q2038 Given 07/05/2016 Influenza Vaccine (Fluzone)( medicare) [id number] 30583 Given 09/02/2015 Prevnar 13 For Adults [id number] 57425 Given 07/14/2015 Zostavax Q2038 Given 06/18/2015 Influenza Vaccine (Fluzone)( medicare) [id number] 91348 Given 05/29/2013 Influenza Vaccination [id number] 62584 Given 05/30/2012 Influenza Vaccination 77324 Given 05/30/2012 Influenza Vaccination [id number] 32689 Given 03/30/2012 Boostrix (Tdap) Tetnus, Diphtheria Toxoids & Acellular Pertussis [id number] 19044 Given 05/25/2011 Influenza Vaccination [id number] 62409 Given 05/26/2010 Influenza Vaccination/preser vative free [id number] 98464 Given 06/23/2009 Influenza Vaccination [id number] Vital Signs Date Vital Result Comment 09/14/2020 8:15am BP Systolic 173 mmHg BP Diastolic 83 mmHg BP Systolic Recheck 148 mmHg BP Diastolic Recheck 83 mmHg Heart Rate 85 /min Body Temperature 97.6 F Respiratory Rate 20 /min Height 63 inches 5'3" Weight 143.00 lb O2 % BldC Oximetry 99 % Peak Expiratory Flow Rate 317 Estimated Peak Flow Rate [place] Body Weight 115 lb BMI (Body Mass Index) 25.3 kg/m2 06/12/2020 10:37am BP Systolic 140 mmHg BP Diastolic 65 mmHg Heart Rate 82 /min Body Temperature 97.7 F Respiratory Rate 18 /min Height 63 inches 5'3" Weight 151.50 lb O2 % BldC Oximetry 99 % Peak Expiratory Flow Rate 310 Estimated Peak Flow Rate [place] Body Weight 115 lb BMI (Body Mass Index) 26.8 kg/m2 Results Description No Information Available Procedures Date Code Description Status 06/12/2020 612106660 Diabetic Foot Exam Completed 07/12/2014 [id number] Mammogram Completed 06/11/2013 [id number] Bone Mineral Density Test Comple [facility] Description No Information Available Encounters Type Date Location Provider Dx Diagnosis Office Visit 06/12/2020 10:30a Main Office Desirae [...] esophagitis Desirae Cash PA Plan of Treatment 09/14/2020 - Desirae Cash PA* E11.9 Type 2 diabetes mellitus without complications* New Labs:* Hemoglobin A1c, Scheduled: 09/14/20 * Microalbumin Random, Scheduled: 09/14/20 * Follow up:* 3 months * Recommendations:* Get your labs done JOSE. This is VERY important * I10 Essential (primary) hypertension * E78.2 Mixed hyperlipidemia* New Labs:* Lipid Panel, Scheduled: 09/14/20 * Comprehensive Metabolic Profil, Scheduled: 09/14/20 * K21.9 Gastro-esophageal reflux disease without esophagitis* New Medication:* Sucralfate 1 gm - take 1 tablet by mouth up to four times daily before meals and at bedtime * New Labs:* CBC With Differential, Scheduled: 09/14/20 * Recommendations:* If you have not heard from our office by next week about an appointment with GI, please call here so we can check on this for you Functional Status Functional Condition Comment Date Status Bifocal glasses Active Independent with all ADL's Activ e Independent with all IADL's Acti ve Mental Status Mental Condition Comment Date Status None Active Referrals Refer to Reason for Referral Status Appt Date [facility] GERD with esophagitis. needs consult and EGD pl ease. Sent [address] [place] [address] [phone]
[2020-10-17] MEDS ORDERED: ATEN25TA PO (08:15)
[2020-10-17] MEDS ORDERED: ASPI81CH33 PO (08:15)
[2020-10-17] MEDS ORDERED: METF500T13 PO (08:15)
[2020-10-17] MEDS ORDERED: CRES5TAB PO (08:15)
[2020-10-17] MEDS ORDERED: ONDA8TAB8 (08:15)
[2020-10-17] MEDS ORDERED: PANT40TA29 (08:15)
[2020-10-17] MEDS ORDERED: NS 1,000 ML IV ONE (08:30)
[2020-10-17] MEDS ORDERED: ONDANSETRON 4MG/2ML VIAL IV ONE (08:30)
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
[2020-10-17 08:47] LABS: BASO % 0.5 % (0.0-1.0); EOS # 0.1 10^3/uL (0.0-0.5); EOS % 1.6 % (0.0-3.0); HEMOGLOBIN 12.4 g/dl (12.0-15.5); LYMPH # 1.1 10^3/uL (1.5-5.0); LYMPH % 17.4 % (24.0-44.0); MEAN CORPUSCULAR HEMOGLOBIN 29.4 pg (27.0-33.0); MEAN CORPUSCULAR HGB CONC 31.8 g/dl (32.0-36.5); MEAN CORPUSCULAR VOLUME 92.4 fl (80.0-96.0); MONO # 0.5 10^3/uL (0.0-0.8); NEUTROPHILS # 4.5 10^3/uL (1.5-8.5); NEUTROPHILS % 72.3 % (36.0-66.0); PLATELET COUNT, AUTOMATED 205 10^3/uL (150-450); RED BLOOD COUNT 4.22 10^6/uL (4.00-5.40); WHITE BLOOD COUNT 6.2 10^3/uL (4.0-10.0)
[2020-10-17] MEDS ORDERED: ISOVUE-370 76% 100ML VIAL As Ordered ONE (09:10)
[2020-10-17 09:21] LABS: ALBUMIN 3.9 GM/DL (3.2-5.2); BILIRUBIN,DIRECT 0.2 MG/DL (0.0-0.2); BILIRUBIN,TOTAL 0.8 MG/DL (0.2-1.0); CALCIUM LEVEL 8.9 MG/DL (8.8-10.2); CREATININE FOR GFR 1.21 MG/DL (0.55-1.30); GLOMERULAR FILTRATION RATE 46.7 (>39); POTASSIUM SERUM 3.9 MEQ/L (3.5-5.1)
--- NOTE | 2020-10-17 09:39 | REP ---
INDICATION: central chest pain, vomiting r/o mass. COMPARISON: Comparison chest CT study 26 February 2019.. TECHNIQUE: Helical scanning is acquired following the intravenous injection of 100 mL of Isovue 370. 3 mm axial images re-formatted. Coronal and sagittal MPR images are generated. FINDINGS: Preliminary digital seeing eye dog teacher radiographs are unremarkable. An air and fluid dilated esophagus is seen throughout the thoracic and cervical esophageal region. There is a soft tissue fullness at the gastroesophageal junction suggesting a distal esophageal mass. This measures approximately 2.4 x 3.7 cm. Esophageal malignancy must be suspected. There is no regional lymphadenopathy seen. No hilar or mediastinal mass or adenopathy is observed. No pleural or pericardial effusion is seen. There is good opacification of the pulmonary arterial tree and the aorta. There is no evidence of pulmonary embolus, aortic aneurysm or dissection. Vascular calcification is observed. There is some coronary artery calcification. Normal adrenal glands are seen. No bony destructive lesion is seen. Lung window settings show no evidence of infiltrate, atelectasis, or pulmonary nodule. IMPRESSION: Mass effect in the distal esophagus suggestive of an esophageal malignancy. Esophageal obstruction is evident in that the esophagus is moderately dilated and filled with ingested material and air. No evidence of adenopathy or metastatic disease.. <Electronically signed by Indio Mcdermott > 10/17/20 [id number]
--- NOTE | 2020-10-17 09:48 | REP ---
INDICATION: central chest pain, vomiting r/o mass. COMPARISON: Comparison CT study February 01, 2019.. TECHNIQUE: Helical scanning was acquired and 4 mm axial images are re-formatted. Coronal and sagittal MPR images were generated and reviewed. The contrast enhancement dose is 100 mL of intravenous Isovue 370. FINDINGS: Preliminary digital apple sorter radiograph shows a normal bowel gas pattern. Mass effect is again noted the gastroesophageal junction with dilation of the esophagus likely related to esophageal malignancy. There are 2 normal-sized celiac axis lymph nodes and 1 normal-sized para soft ARMANDO lymph node. No definite adenopathy. The liver and the spleen are normal in size and homogeneous in texture. No focal liver lesion is seen. Normal adrenal glands are seen. No abnormality is noted in the pancreas. The gallbladder contains calculi layering in the dependent portion of its lumen. Kidneys enhance symmetrically and are morphologically intact. No evidence of renal mass or hydronephrosis. There is extensive vascular calcification. 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 The SMA origin is unremarkable. There is vascular calcification at the origin of both renal arteries. The left renal artery is smaller than the right. 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 A aorto left femoral graft is seen in place and patent. This is a Y-shaped graph with an aorto left to right fem-fem crossover component anastomosing to the right common femoral artery. Small and large intestinal bowel loops are unremarkable in the abdomen and pelvis except for some left colonic diverticulosis without CT evidence of diverticulitis. The appendix is surgically absent. There is a history of left colonic resection. No colonic mass lesion is apparent. IMPRESSION: GE junction mass suggestive of esophageal malignancy. There are several normal-sized adjacent lymph nodes. No definite adenopathy or evidence of metastatic disease. Left colonic diverticulosis. 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 Left colonic diverticulosis and cholelithiasis noted. <Electronically signed by Indio Mcdermott > 10/17/20 [id number]
[2020-10-17 10:30] LABS: APPEARANCE, URINE CLEAR (CLEAR); BACTERIA, URINE AUTO NEGATIVE (NEGATIVE); BILIRUBIN, URINE AUTO NEGATIVE (NEGATIVE); BLOOD, URINE BLOOD NEGATIVE (NEGATIVE); COLOR, URINE STRAW (YELLOW); GLUCOSE, URINE (UA) AUTO 1+ mg/dL (NEGATIVE); KETONE, URINE AUTO 1+ mg/dL (NEGATIVE); LEUKOCYTE ESTERASE, URINE AUTO 2+ (NEGATIVE); NITRITE, URINE AUTO NEGATIVE (NEGATIVE); PROTEIN, URINE AUTO NEGATIVE (NEGATIVE); RBC, URINE AUTO 1 /HPF (0-3); SPECIFIC GRAVITY URINE AUTO 1.047 (1.002-1.035); SQUAMOUS EPITHELIAL CELL UR AU 1 /HPF (0-6); UROBILINOGEN, URINE AUTO 0.2 mg/dL (0.0-2.0); WBC, URINE AUTO 6 /HPF (0-3)
[2020-10-17] MEDS ORDERED: ASPI-161 PO (11:14)
[2020-10-17] MEDS ORDERED: METF-838 PO (11:14)
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
[2020-10-17] MEDS ORDERED: LIDOCAINE 2% 100MG/5ML SDV (FOR ANES.) As Ordered ONE (11:58)
[2020-10-17] MEDS ORDERED: propofoL 200 MG/20 ML VIAL As Ordered ONE (11:58)
[2020-10-17] MEDS ORDERED: fentaNYL 100 MCG/2 ML INJECTION (J3010) As Ordered ONE (11:58)
[2020-10-17] MEDS ORDERED: dexameTHASONE 4 MG/ML 1ML VIAL (J1100 PER 1MG) As Ordered ONE ×2 (11:59→12:00)
[2020-10-17] MEDS ORDERED: SUCCINYLCHOLINE 100 MG/5 ML SYRINGE (J0330) As Ordered ONE (11:59)
[2020-10-17] MEDS ORDERED: ONDANSETRON 4MG/2ML VIAL As Ordered ONE (12:00)
[2020-10-17] MEDS ORDERED: MIDAZOLAM INJ 2MG/2ML VIAL (J2250 PER 1MG) As Ordered ONE (13:22)
[2020-10-17] MEDS ORDERED: ONDANSETRON 4MG/2ML VIAL IV PRN (15:00)
[2020-10-17] MEDS ORDERED: LR 1,000 ML IV SCH (15:00)
--- NOTE | 2020-10-17 15:01 | ROOR ---
Patient Name: Krystal Olivas Procedure Date: 10/17/2020 12:52 PM Date of : 1950 Age: 69 Room: Main OR Gender: Female Note Status: Finalized Procedure: Upper GI endoscopy Indications: Dysphagia, Abnormal CT of the GI tract Providers: Agustín Estrada MD Referring MD: Desirae Roberts, 2. Inpatient 2. Inpatient Requesting Provider: Medicines: Monitored Anesthesia Care Complications: No immediate complications. Procedure: Pre-Anesthesia Assessment: - Prior to the procedure, a History and Physical was performed, and patient medications and allergies were reviewed. The patient is competent. The risks and benefits of the procedure and the sedation options and risks were discussed with the patient. All questions were answered and informed consent was obtained. Patient identification and proposed procedure were verified by the physician, the nurse and the anesthesiologist in the procedure room. Mental Status Examination: alert and oriented. Airway Examination: normal oropharyngeal airway and neck mobility. Respiratory Examination: clear to auscultation. CV Examination: normal. Prophylactic Antibiotics: The patient does not require prophylactic antibiotics. Prior Anticoagulants: The patient has taken no previous anticoagulant or antiplatelet agents. ASA Grade Assessment: II - A patient with mild systemic disease. After reviewing the risks and benefits, the patient was deemed in satisfactory condition to undergo the procedure. The anesthesia plan was to use monitored anesthesia care (MAC). Immediately prior to administration of medications, the patient was re-assessed for adequacy to receive sedatives. The heart rate, respiratory rate, oxygen saturations, blood pressure, adequacy of pulmonary ventilation, and response to care were monitored throughout the procedure. The physical status of the patient was re-assessed after the procedure. The Endoscope was introduced through the mouth, and advanced to the second part of duodenum. The upper GI endoscopy was accomplished without difficulty. The patient tolerated the procedure well. Findings: A large, ulcerating mass with no bleeding and no stigmata of recent bleeding was found in the distal esophagus, 37 to 40 cm from the incisors. The mass was completely obstructing and circumferential. Biopsies were taken with a cold forceps for histology. Verification of patient identification for the specimen was done by the physician and nurse using the patient's name, date and medical record number. Estimated blood loss was minimal. One malignant-appearing, intrinsic severe (stenosis; an endoscope cannot pass) stenosis was found 37 to 40 cm from the incisors. This stenosis measured 5 mm (inner diameter) x 3 cm (in length). The stenosis was traversed after downsizing scope. Localized moderate mucosal changes characterized by nodularity were found at the gastroesophageal junction. The duodenal bulb and second portion of the duodenum were normal. 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 Biopsied. - Malignant-appearing esophageal stenosis. - Nodular mucosa in the gastroesophageal junction. - Normal duodenal bulb and second portion of the duodenum. Recommendation: - Patient has a contact number available for emergencies. The signs and symptoms of potential delayed complications were discussed with the patient. Return to normal activities tomorrow. Written discharge instructions were provided to the patient. - [facility] patient to [facility] for [facility] care. - NPO. IV hydration for now. - Continue present medications. - Surgical consultation for consideration of a surgical jejunostomy at the next available appointment. - Await pathology results. - Refer to an oncologist at appointment to be scheduled. - Telephone GI clinic for pathology results in 1 week. - Return to GI clinic in 2 months. - Return to primary care physician. Procedure Code(s): --- Professional --- 97072, Esophagogastroduodenoscopy, flexible, transoral; with biopsy, single or multiple Diagnosis Code(s): --- Professional --- D49.0, Neoplasm of unspecified behavior of digestive system K22.2, Esophageal obstruction K31.89, Other diseases of stomach and duodenum R13.10, Dysphagia, unspecified R93.3, Abnormal findings on diagnostic imaging of other parts of digestive tract CPT copyright 2019 [employer]. All rights reserved. The codes documented in this report are preliminary and upon refund clerk review may be revised to meet current compliance requirements. Attending Participation: I personally performed the entire procedure. Agustín Estrada MD Agustín Estrada MD 10/17/2020 3:01:22 PM Electronically signed by Agustín Estrada MD Number of Addenda: 0 Note Initiated On: 10/17/2020 12:52 PM Estimated Blood Loss: Estimated blood loss was minimal.
--- NOTE | 2020-10-17 16:10 | HPEPDOC ---
General Date of Admission Oct 17, 2020 at 11:02 Date of Service: Oct 17, 2020 Chief Complaint The patient is a 69-year-old female admitted with a reason for visit of Esophageal Stricture. Source: Patient History of Present Illness 69 year old female with PMH of DM, HTN, HLD, PAD presented to the ED at the [facility] for evaluation for dysphagia. Patient first started having difficulty swallowing and having acid reflux from June 2020. She reported that she noticed that food was getting stuck at the point during swallowing. She mentioned this to her PMD . She was started on antireflux medications and referred to GI. She reported that she never got a return call from GI. Her swallowing continued to worsen and recently her medications were also getting stuck and coming right back up. She was only able to swallow liquids. She went back to her PMD and it was noted that she had lost 24 lbs in 3 months. She was urgently referrer to our GI and was seen in the office yesterday and sent to ED. CT chest and abd and pelvis int ED showed and obstructing mass at the lower part of esophagus near the gastroesophageal junction with dilatation of the esophagus above it filled with fluids and air. She was admitted for esophageal stricture due to mass. Home Medications Scheduled Aspirin (Aspirin EC) 81 Mg Tablet.dr, 81 MG PO DAILY, (Reported) Atenolol (Atenolol) 25 Mg Tablet, 25 MG PO DAILY, (Reported) Metformin HCl (Metformin HCl ER) 500 Mg Tab.er.24h, 1,000 MG PO BID, (Reported) LUNCH AND DINNER - HAS NOT TAKEN SINCE AUG 2020 Rosuvastatin Calcium (Crestor) 5 Mg Tablet, 5 MG PO DAILY, (Reported) Allergies Coded Allergies: shellfish derived (Verified Allergy, Intermediate, rash, vomiting, 10/17/20) Penicillins (Verified Adverse Reaction, Unknown, hyperventilation, 10/17/20) Past Medical History Medical History Diabetes, HTN, HLD, PAD, Celiac artery high grade stenosis, Surgical History Appendectomy Bilateral cataracts, total hysterectomy and bilateral salpingo oophorectomy. Aortofemoral stent Family History Significant Family History: Diabetes (mother) Father had CAD, stroke, was alcoholic Social History * Smoker: current smoker Alcohol: rarely Drugs: denies A-FIB/CHADSVASC A-FIB History Current/History of A-Fib/PAF?: No Review of Systems Constitutional: Reports: Weight Loss; Denies: Chills, Fever, Night Sweats Eyes: Denies: Pain, Vision change ENT: Reports: Dysphagia; Denies: Head Aches, Ear Pain Skin: Denies: Rash, Lesions, Breakdown Pulmonary: Denies: Dyspnea, Cough Cardiovascular: Denies: Chest Pain, Palpitations, Orthopnea, Paroxysmal Noc. Dyspnea, Lt Headedness Gastrointestinal: Reports: Vomiting Genitourinary: Denies: Dysuria, Frequency, Incontinence, Retention Musculoskeletal: Denies: Neck Pain, Back Pain, Joint Pain, Muscle Pain, Spasms Physical Examination General Exam: Positive: Alert, Cooperative, No Acute Distress Eye Exam: Positive: PERRLA, Conjunctiva & lids normal, EOMI; Negative: Sclera icteric ENT Exam: Positive: Atraumatic, Mucous membr. moist/pink, Pharynx Normal Neck Exam: Positive: Supple; Negative: JVD, thyromegaly Chest Exam: Positive: Clear to auscultation, Normal air movement Heart Exam: Positive: Rate Normal, Regular Rhythm, Normal S1, Normal S2; Negative: Murmurs, Rubs Abdomen Exam: Positive: Normal bowel sounds, Soft; Negative: Tenderness, Hepatospenomegaly Extremity Exam: Positive: Normal pulses; Negative: Clubbing, Cyanosis, Edema Vital Signs Vital Signs Date Time Temp Pulse Resp B/P (MAP) Pulse Ox O2 Delivery O2 Flow Rate FiO2 10/17/20 15:20 97.3 83 18 135/63 (87) 96 Room Air Laboratory Data Labs 24H Laboratory Tests 2 10/17/20 08:32: Immature Granulocyte % (Auto) 0.2, Neutrophils (%) (Auto) 72.3H, Lymphocytes (%) (Auto) 17.4L, Monocytes (%) (Auto) 8.0H, Eosinophils (%) (Auto) 1.6, Basophils (%) (Auto) 0.5, Neutrophils # (Auto) 4.5, Lymphocytes # (Auto) 1.1L, Monocytes # (Auto) 0.5, Eosinophils # (Auto) 0.1, Basophils # (Auto) 0.0, Nucleated Red Blood Cells % (auto) 0.0, Anion Gap 8, Glomerular Filtration Rate 46.7, Calcium Level 8.9, Total Bilirubin 0.8, Direct Bilirubin 0.2, Aspartate Amino Transf (AST/SGOT) 8, Alanine Aminotransferase (ALT/SGPT) 15, Alkaline Phosphatase 53, Total Protein 7.0, Albumin 3.9, Albumin/Globulin Ratio 1.3, Lipase 138 10/17/20 10:17: Urine Color STRAW, Urine Appearance CLEAR, Urine pH 5.0, Urine Specific [place] 1.047, Urine Protein NEGATIVE, Urine Glucose (Auto)(UA) 1+H, Urine Ketones (Auto) 1+H, Urine Blood NEGATIVE, Urine Nitrite NEGATIVE, Urine Bilirubin N EGATIVE, Urine Urobilinogen 0.2, Urine Leukocyte Esterase (Auto) 2+H, Urine WBC (Auto) 6H, Urine RBC (Auto) 1, Urine Hyaline Casts (Auto) 0, Urine Bacteria (Auto) NEGATIVE, Urine Squamous Epithelial Cells 1, Urine Sperm (Auto) 10/17/20 10:55: Coronavirus (COVID-19)(PCR) NEGATIVE CBC/BMP Laboratory Tests 10/17/20 08:32 Assessment/Plan 69 year old female with PMH of DM, HTN, HLD, PAD presented to the ED at the [facility] for evaluation for dysphagia. Patient first started having difficulty swallowing and having acid reflux from June 2020. She reported that she noticed that food was getting stuck at the point during swallowing. She mentioned this to her PMD . She was started on antireflux medications and referred to GI. She reported that she never got a return call from GI. Her swallowing continued to worsen and recently her medications were also getting stuck and coming right back up. She was only able to swallow liquids. She went back to her PMD and it was noted that she had lost 24 lbs in 3 months. She was urgently referrer to our GI and was seen in the office yesterday and sent to ED. CT chest and abd and pelvis int ED showed and obstructing mass at the lower part of esophagus near the gastroesophageal junction with dilatation of the esophagus above it filled with fluids and air. She was admitted for esophageal stricture due to mass. Dysphagia due to Gastroesophageal junction mass. likely malignant. Went for urgent EGD. 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 Biopsied. Malignant-appearing esophageal stenosis. Nodular mucosa in the gastroesophageal junction. Normal duodenal bulb and second portion of the duodenum. Stent could not be placed as the mass was right at the GE junction with almost complete obstruction. Surgery consulted for jejunostomy tube placement. NPo with only ice chips nd sips of water for now continue IVF. HTN on atenolol will hold DM on metformin will hold PAD on asa ans statin will hold Plan / VTE VTE Prophylaxis Ordered?: Yes AIDAN ANDRES MD Oct 17, 2020 16:09
--- NOTE | 2020-10-17 18:54 | CR.PDOC ---
General Surgery Consultation Date of Consultation 10/17/20 History and Physical CONSULT REPORT FOR: Dr. Ginette Conner (hospitalist service) REASON FOR CONSULTATION: need for feeding access HISTORY OF PRESENT ILLNESS: Patient is a 69-year-old female admitted through the emergency room and found to have an esophageal mass. She underwent upper endoscopy done today showing an obstructing distal esophageal mass extending to the GE junction. She has lost about 20 pounds in the past 3 months and is not able to tolerate any oral intake and thus I was asked to see the patient for possible placement of a jejunostomy feeding tube was she is being worked up for her esophageal mass PAST MEDICAL HISTORY: 1. . PAST SURGICAL HISTORY: INCLUDES: 1. . PREVIOUS ANESTHESIA REACTIONS: ALLERGIES: Please see below. FAMILY HISTORY: . HOME MEDICATIONS: Please see below. REVIEW OF SYSTEMS: GENERAL: [Denies chills, reports weight gain, reports feeling febrile yesterday]. HEENT: [Denies blurred vision and double vision. Denies ear symptoms. Denies hoarseness]. NECK: Denies any neck pain]. CARDIOVASCULAR: [Denies chest pain and palpitations]. MUSCULOSKELETAL: [Denies arthralgias, back pain and thrombophlebitis]. SKIN: [Denies rash]. NEUROLOGIC: [Denies headache, stroke and transient ischemic attack]. PSYCHIATRIC: [Denies anxiety and depression]. ENDOCRINE: [Denies thyroid disease]. HEMATOLOGY/ONCOLOGY: [Denies bleeding or clotting disorder]. HEART: [Denies any chest pains, palpitations, paroxysmal dyspnea, orthopnea]. PULMONARY: [Denies chronic cough, dyspnea and wheezing]. GASTROINTESTINAL: [Denies rectal bleeding, family history of colon cancer, constipation, diarrhea, dysphagia, heartburn and jaundice]. GENITOURINARY: [Denies dysuria, frequency, hematuria and nocturia]. ENDOCRINE: [Denies polydipsia, polyphagia, polyuria, heat or cold intolerance]. INFECTIOUS: [Denies any recent upper respiratory tract infection, UTI, need for use of antibiotics]. NUTRITION: [Reports good appetite]. PHYSICAL EXAMINATION: VITALS SIGNS: Please see below. GENERAL APPEARANCE:[Patient seen, laying in bed, awake, alert, and oriented. Comfortable, in no acute distress]. SKIN: [Warm and moist]. HEENT: [Normocephalic, atraumatic. [place] palpebral conjunctiva, anicteric sclerae. Lips and mucosa appear moist]. NECK: [Supple, no thyromegaly. No obvious jugular venous distention]. LUNGS: [Clear to auscultation bilaterally. No wheezing appreciated]. HEART: [No chest wall abnormalities. Regular rate and rhythm with no murmurs appreciated]. ABDOMEN: Abdomen is , soft, . [No hepatosplenomegaly. No umbilical or groin herniations, nondistended. No noticeable rebound or guarding. No grimacing with palpation. No rebound tenderness. No masses appreciated]. EXTREMITIES: [Extremities have no deformities. No edema identified] ANCILLARIES: . LABORATORY DATA: Please see below. IMAGING STUDIES: . IMPRESSION AND PLAN: . Vital Signs Vital Signs Date Time Temp Pulse Resp B/P (MAP) Pulse Ox O2 Delivery O2 Flow Rate FiO2 10/17/20 17:30 97.0 66 15 128/56 (80) 95 Room Air Laboratory Data Labs 24H Laboratory Tests 2 10/17/20 08:32: Immature Granulocyte % (Auto) 0.2, Neutrophils (%) (Auto) 72.3H, Lymphocytes (%) (Auto) 17.4L, Monocytes (%) (Auto) 8.0H, Eosinophils (%) (Auto) 1.6, Basophils (%) (Auto) 0.5, Neutrophils # (Auto) 4.5, Lymphocytes # (Auto) 1.1L, Monocytes # (Auto) 0.5, Eosinophils # (Auto) 0.1, Basophils # (Auto) 0.0, Nucleated Red Blood Cells % (auto) 0.0, Anion Gap 8, Glomerular Filtration Rate 46.7, Calcium Level 8.9, Total Bilirubin 0.8, Direct Bilirubin 0.2, Aspartate Amino Transf (AST/SGOT) 8, Alanine Aminotransferase (ALT/SGPT) 15, Alkaline Phosphatase 53, Total Protein 7.0, Albumin 3.9, Albumin/Globulin Ratio 1.3, Lipase 138 10/17/20 10:17: Urine Color STRAW, Urine Appearance CLEAR, Urine pH 5.0, Urine Specific [place] 1.047, Urine Protein NEGATIVE, Urine Glucose (Auto)(UA) 1+H, Urine Ketones (Auto) 1+H, Urine Blood NEGATIVE, Urine Nitrite NEGATIVE, Urine Bilirubin NEGATIVE, Urine Urobilinogen 0.2, Urine Leukocyte Esterase (Auto) 2+H, Urine WBC (Auto) 6H, Urine RBC (Auto) 1, Urine Hyaline Casts (Auto) 0, Urine Bacteria (Auto) NEGATIVE, Urine Squamous Epithelial Cells 1, Urine Sperm (Auto) 10/17/20 10:55: Coronavirus (COVID-19)(PCR) NEGATIVE CBC/BMP Laboratory Tests 10/17/20 08:32 Home Medications Scheduled Aspirin (Aspirin EC) 81 Mg Tablet.dr, 81 MG PO DAILY, (Reported) Atenolol (Atenolol) 25 Mg Tablet, 25 MG PO DAILY, (Reported) Metformin HCl (Metformin HCl ER) 500 Mg Tab.er.24h, 1,000 MG PO BID, (Reported) LUNCH AND DINNER - HAS NOT TAKEN SINCE AUG 2020 Rosuvastatin Calcium (Crestor) 5 Mg Tablet, 5 MG PO DAILY, (Reported) Allergies Coded Allergies: shellfish derived (Verified Allergy, Intermediate, rash, vomiting, 10/17/20) Penicillins (Verified Adverse Reaction, Unknown, hyperventilation, 10/17/20) JASBIR VALENZUELA MD Oct 17, 2020 18:54
[2020-10-18] VITALS (10 sets, daily range): BP systolic 122–158; BP diastolic 55–76
[2020-10-18 06:39] LABS: BASO % 0.2 % (0.0-1.0); HEMATOCRIT 36.8 % (36.0-47.0); HEMOGLOBIN 11.6 g/dl (12.0-15.5); LYMPH # 0.6 10^3/uL (1.5-5.0); LYMPH % 12.3 % (24.0-44.0); MEAN CORPUSCULAR HEMOGLOBIN 29.2 pg (27.0-33.0); MEAN CORPUSCULAR HGB CONC 31.5 g/dl (32.0-36.5); MEAN CORPUSCULAR VOLUME 92.7 fl (80.0-96.0); MONO # 0.2 10^3/uL (0.0-0.8); MONO % 3.1 % (2.0-8.0); NEUTROPHILS # 4.4 10^3/uL (1.5-8.5); PLATELET COUNT, AUTOMATED 184 10^3/uL (150-450); RED BLOOD COUNT 3.97 10^6/uL (4.00-5.40); WHITE BLOOD COUNT 5.2 10^3/uL (4.0-10.0)
[2020-10-18 06:55] LABS: BLOOD UREA NITROGEN 13 MG/DL (7-18); CALCIUM LEVEL 8.6 MG/DL (8.8-10.2); CARBON DIOXIDE LEVEL 23 MEQ/L (21-32); CHLORIDE LEVEL 111 MEQ/L (98-107); CREATININE FOR GFR 0.95 MG/DL (0.55-1.30); GLOMERULAR FILTRATION RATE > 60.0 (>39); GLUCOSE, FASTING 147 MG/DL (70-100); POTASSIUM SERUM 4.5 MEQ/L (3.5-5.1); SODIUM LEVEL 143 MEQ/L (136-145)
[2020-10-18] MEDS ORDERED: fentaNYL 100 MCG/2 ML INJECTION (J3010) As Ordered ONE ×2 (06:55→09:38)
[2020-10-18] MEDS ORDERED: MIDAZOLAM INJ 2MG/2ML VIAL (J2250 PER 1MG) As Ordered ONE (06:55)
[2020-10-18] MEDS ORDERED: propofoL 200 MG/20 ML VIAL As Ordered ONE (06:56)
[2020-10-18] MEDS ORDERED: LIDOCAINE 2% 100MG/5ML SDV (FOR ANES.) As Ordered ONE (06:56)
[2020-10-18] MEDS ORDERED: ePHEDrine SULFATE 25 MG/5 ML(5MG/ML) SYRINGE As Ordered ONE (06:56)
[2020-10-18] MEDS ORDERED: SUGAMMADEX SODIUM 500 MG/5 ML VIAL (BRIDION) As Ordered ONE (06:56)
[2020-10-18] MEDS ORDERED: PHENYLephrine 500MCG 5ML (100MCG/ML) SYRINGE As Ordered ONE (06:56)
[2020-10-18] MEDS ORDERED: ONDANSETRON 4MG/2ML VIAL As Ordered ONE (06:56)
[2020-10-18] MEDS ORDERED: ROCURONIUM BROMIDE 50 MG/5 ML VIAL As Ordered ONE (06:56)
[2020-10-18] MEDS ORDERED: dexameTHASONE 4 MG/ML 1ML VIAL (J1100 PER 1MG) As Ordered ONE (06:56)
[2020-10-18] MEDS ORDERED: ACETAMINOPHEN 1000MG 100ML IV BTL (OFIRMEV) (J0131 PER 10MG) As Ordered ONE (07:01)
[2020-10-18] MEDS ORDERED: LIDOCAINE 1% SDV 30ML VIAL As Ordered ONE (07:48)
[2020-10-18] MEDS ORDERED: BUPIVACAINE HCL 0.25% 30ML VIAL As Ordered ONE (07:48)
[2020-10-18] MEDS ORDERED: AMPICILLIN As Ordered ONE ×2 (08:19→08:22)
[2020-10-18] MEDS ORDERED: ROSUVASTATIN 10 MG TAB (CRESTOR) PO SCH (09:00)
[2020-10-18] MEDS ORDERED: ASPIRIN 81 MG CHEW TABLET NG SCH (09:00)
[2020-10-18] MEDS ORDERED: atenoloL 25 MG TAB PO SCH (09:00)
[2020-10-18] MEDS ORDERED: ASPIRIN 81 MG ENTERIC TAB PO SCH (09:00)
--- NOTE | 2020-10-18 10:15 | ROOPDOC ---
[facility] Report Of Operation Report of Operation DATE OF PROCEDURE: 10/18/20 PREPROCEDURE DIAGNOSES: Esophageal obstruction, esophageal mass, dysphagia possible esophageal malignancy. POSTPROCEDURE DIAGNOSES: Same. PROCEDURE: Laparoscopic jejunostomy tube placement. SURGEON: Spike Estrada MD [employer]: ANESTHESIA: Gen. anesthesia. ESTIMATED BLOOD LOSS: Approximately 10 mL. COMPLICATIONS: none. REMARKS: . PROCEDURE NOTE: 18 Malay jejunostomy tube placed, balloon was filled with 3 mL of normal saline. DESCRIPTION OF PROCEDURE: . SPIKE ESTRADA MD Oct 18, 2020 10:15
[2020-10-18] MEDS ORDERED: KETOROLAC 30 MG/ML 1ML VIAL IV PRN (10:30)
[2020-10-18] MEDS ORDERED: HYDROMORPHONE HCL 0.5 MG/ 0.5 ML SYRINGE (J1170 PER 1) IV PRN (11:00)
[2020-10-18] MEDS ORDERED: oxyCODONE 5MG TAB PO PRN (11:00)
[2020-10-18] MEDS ORDERED: fentaNYL 100 MCG/2 ML INJECTION (J3010) IV PRN (11:00)
[2020-10-18] MEDS ORDERED: ONDANSETRON 4MG/2ML VIAL IV PRN (11:00)
[2020-10-18] MEDS ORDERED: LR 1,000 ML IV SCH (11:00)
[2020-10-18] MEDS ORDERED: atenoloL 25 MG TAB NG SCH (12:10)
[2020-10-18] MEDS ORDERED: ROSUVASTATIN 10 MG TAB (CRESTOR) NG SCH (12:11)
[2020-10-18] MEDS ORDERED: ROSUVASTATIN 10 MG TAB (CRESTOR) JT SCH (12:14)
[2020-10-18] MEDS ORDERED: ASPIRIN 81 MG CHEW TABLET JT SCH (12:14)
[2020-10-18] MEDS ORDERED: atenoloL 25 MG TAB JT SCH (12:14)
[2020-10-18] MEDS ORDERED: AMPICILLIN SOD 1 GM in D5W MINI-BAG PLUS 50 ML IV SCH (13:00)
[2020-10-18] MEDS ORDERED: AMPICILLIN SOD 1 GM in D5W MINI-BAG PLUS 50 ML IV ONE (13:00)
--- NOTE | 2020-10-18 21:39 | IPNPDOC ---
Subjective Date Seen The patient was seen on 10/18/20. Subjective Chief Complaint/HPI No complaints. S/p jejunostomy this morning. Objective Physical Examination General Exam: Positive: Alert, Cooperative, No Acute Distress Eye Exam: Positive: PERRLA, Conjunctiva & lids normal, EOMI ENT Exam: Positive: Atraumatic, Mucous membr. moist/pink, Pharynx Normal Neck Exam: Positive: Supple Chest Exam: Positive: Clear to auscultation, Normal air movement Heart Exam: Positive: Rate Normal, Regular Rhythm, Normal S1, Normal S2 Abdomen Exam: Positive: Normal bowel sounds, Soft, Other (jejunostomy tube in place) Extremity Exam: Positive: Normal pulses Skin Exam: Positive: Nl turgor and temperature; Negative: Rash, Breakdown Neuro Exam: Positive: Normal Speech, Strength at 5/5 X4 ext, Normal Tone Assessment /Plan Assessment 69 year old female with PMH of DM, HTN, HLD, PAD presented to the ED at the [facility] for evaluation for dysphagia. Patient first started having difficulty swallowing and having acid reflux from June 2020. She reported that she noticed that food was getting stuck at the point during swallowing. She mentioned this to her PMD . She was started on antireflux medications and referred to GI. She reported that she never got a return call from GI. Her swallowing continued to worsen and recently her medications were also getting stuck and coming right back up. She was only able to swallow liquids. She went back to her PMD and it was noted that she had lost 24 lbs in 3 months. She was urgently referrer to our GI and was seen in the office yesterday and sent to ED. CT chest and abd and pelvis int ED showed and obstructing mass at the lower part of esophagus near the gastroesophageal junction with dilatation of the esophagus above it filled with fluids and air. She was admitted for esophageal stricture due to mass. Dysphagia due to Gastroesophageal junction mass. 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 Biopsied. Malignant-appearing esophageal stenosis. Nodular mucosa in the gastroesophageal junction. Normal duodenal bulb and second portion of the duodenum. Stent could not be placed as the mass was right at the GE junction S/p Jejunostomy placement on 10/18/20 will refer to Oncology HTN will continue atenolol 25 DM has not taken in since last Marilyn will stop check A1c. PAD on asa ans statin will continue. Dispo in 24 hours. Plan/VTE VTE Prophylaxis Ordered?: Yes VS, I&O, 24H, [place] Vital Signs/I&O Vital Signs Date Time Temp Pulse Resp B/P (MAP) Pulse Ox O2 Delivery O2 Flow Rate FiO2 10/18/20 18:00 98.3 98 18 158/76 (103) 98 Room Air 10/18/20 10:32 2 I&O- Last 24 Hours up to 6 AM 10/18/20 07:00 Intake Total 1600 ml Output Total 700 ml Balance 900 ml Laboratory Data 24H LABS Laboratory Tests 2 10/18/20 05:48: Immature Granulocyte % (Auto) 0.4, Neutrophils (%) (Auto) 84.0H, Lymphocytes (%) (Auto) 12.3L, Monocytes (%) (Auto) 3.1, Eosinophils (%) (Auto) 0.0, Basophils (%) (Auto) 0.2, Neutrophils # (Auto) 4.4, Lymphocytes # (Auto) 0.6L, Monocytes # (Auto) 0.2, Eosinophils # (Auto) 0.0, Basophils # (Auto) 0.0, Nucleated Red Blood Cells % (auto) 0.0, Anion Gap 9, Glomerular Filtration Rate > 60.0, Calcium Level 8.6L 10/18/20 06:34: Bedside Glucose (Misc Panel) 155H CBC/BMP Laboratory Tests 10/18/20 05:48 AIDAN ANDRES MD Oct 18, 2020 21:39
[2020-10-19 06:00] VITALS: BP 152/81
[2020-10-19 06:17] LABS: BASO % 0.1 % (0.0-1.0); EOS % 0.1 % (0.0-3.0); HEMATOCRIT 32.5 % (36.0-47.0); HEMOGLOBIN 10.5 g/dl (12.0-15.5); LYMPH # 1.2 10^3/uL (1.5-5.0); LYMPH % 15.1 % (24.0-44.0); MEAN CORPUSCULAR HEMOGLOBIN 29.7 pg (27.0-33.0); MEAN CORPUSCULAR HGB CONC 32.3 g/dl (32.0-36.5); MEAN CORPUSCULAR VOLUME 92.1 fl (80.0-96.0); MONO # 0.6 10^3/uL (0.0-0.8); NEUTROPHILS % 76.3 % (36.0-66.0); PLATELET COUNT, AUTOMATED 188 10^3/uL (150-450); RED BLOOD COUNT 3.53 10^6/uL (4.00-5.40); WHITE BLOOD COUNT 7.9 10^3/uL (4.0-10.0)
[2020-10-19 06:30] LABS: HEMOGLOBIN A1c 6.7 %
[2020-10-19 06:38] LABS: CALCIUM LEVEL 8.9 MG/DL (8.8-10.2); CREATININE FOR GFR 1.02 MG/DL (0.55-1.30); GLOMERULAR FILTRATION RATE 56.9 (>39); POTASSIUM SERUM 4.1 MEQ/L (3.5-5.1)
[2020-10-19 08:00] VITALS: BP 150/62
[2020-10-19] MEDS ORDERED: PILL CUTTER 1 EACH XX PRN (09:30)
[2020-10-19 09:42] VITALS: BP 150/62
[2020-10-19 12:00] VITALS: BP 136/64
--- NOTE | 2020-10-19 13:52 | DS.PDOC ---
Discharge Summary General Date of Admission Oct 17, 2020 at 11:02 Date of Discharge 10/19/20 Discharge Summary PROCEDURES PERFORMED DURING STAY: Jejunostomy tube insertion. DISCHARGE DIAGNOSES: Lower esophageal cancer with obstruction. Biopsy pending. SECONDARY DIAGNOSIS: Hypertension, Diabetes, HLD, PAD with Bilateral common iliac artery occlusions with Aorto Left femoral graft with an aorto left to right fem-fem crossover component anastomosing to the right common femoral artery. Celiac artery high grade stenosis, probable renal artery stenosis, cholelithiasis, diverticulosis. COMPLICATIONS/CHIEF COMPLAINT: Esophageal Stricture. HOSPITAL COURSE: 69 year old female with PMH of DM, HTN, HLD, PAD presented to the ED at the [facility] for evaluation for dysphagia. Patient first started having difficulty swallowing and having acid reflux from June 2020. She reported that she noticed that food was getting stuck at the point during swallowing. She mentioned this to her PMD . She was started on antireflux medications and referred to GI. She reported that she never got a return call from GI. Her swallowing continued to worsen and recently her medications were also getting stuck and coming right back up. She was only able to swallow liquids. She went back to her PMD and it was noted that she had lost 24 lbs in 3 months. She was urgently referrer to our GI and was seen in the office yesterday and sent to ED. CT chest and abd and pelvis int ED showed and obstructing mass at the lower part of esophagus near the gastroesophageal junction with dilatation of the esophagus above it filled with fluids and air. She was admitted for esophageal stricture due to mass. Dysphagia due to Gastroesophageal junction mass. 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 Biopsied. Malignant-appearing esophageal stenosis. Nodular m ucosa in the gastroesophageal junction. Normal duodenal bulb and second portion of the duodenum. Stent could not be placed as the mass was right at the GE junction S/p Jejunostomy placement on 10/18/20 Tube feeding with Jevity. Full liquid diet. will refer to Dr Webber in radiation oncology and to oncology. HTN will continue atenolol 25 DM has not taken in since last , has lost weight due to dysphagia. will stop metformin. A1c 6.7 PAD on asa and statin will continue. DISCHARGE MEDICATIONS: Please see below. ALLERGIES: Please see below. PHYSICAL EXAMINATION ON DISCHARGE: VITAL SIGNS: Please see below. General Exam: Positive: Alert, Cooperative, No Acute Distress Eye Exam: Positive: PERRLA, Conjunctiva & lids normal, EOMI ENT Exam: Positive: Atraumatic, Mucous membr. moist/pink, Pharynx Normal Neck Exam: Positive: Supple Chest Exam: Positive: Clear to auscultation, Normal air movement Heart Exam: Positive: Rate Normal, Regular Rhythm, Normal S1, Normal S2 Abdomen Exam: Positive: Normal bowel sounds, Soft, Other (jejunostomy tube in place) Extremity Exam: Positive: Normal pulses Skin Exam: Positive: Nl turgor and temperature; Negative: Rash, Breakdown Neuro Exam: Positive: Normal Speech, Strength at 5/5 X4 ext, Normal Tone LABORATORY DATA: Please see below. IMAGING: CT chest with contrast Mass effect in the distal esophagus suggestive of an esophageal malignancy. Esophageal obstruction is evident in that the esophagus is moderately dilated and filled with ingested material and air. No evidence of adenopathy or metastatic disease. CT abd and pelvis with contrast: GE junction mass suggestive of esophageal malignancy. There are several normal- sized adjacent lymph nodes. No definite adenopathy or evidence of metastatic disease. Left colonic diverticulosis. 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 Left colonic diverticulosis and cholelithiasis noted. ACTIVITY: [As tolerated]. DIET: Full liquids DISCHARGE PLAN: Home DISPOSITION: . DISCHARGE INSTRUCTIONS: Follow up with GI in 1 week Follow up with Dr Webber in radiation oncology in 1 week Follow up with Oncology in 1 week ITEMS TO FOLLOWUP ON ON OUTPATIENT: Biopsy results. DISCHARGE CONDITION: [Stable]. TIME SPENT ON DISCHARGE: 35 minutes. Vital Signs/I&Os Vital Signs Date Time Temp Pulse Resp B/P (MAP) Pulse Ox O2 Delivery O2 Flow Rate FiO2 10/19/20 12:00 97.9 72 17 136/64 (88) 98 Room Air 10/18/20 10:32 2 I&O- Last 24 Hours up to 6 AM 10/19/20 06:00 Intake Total 2820 ml Output Total 550 ml Balance 2270 ml Laboratory Data Labs 24H Laboratory Tests 2 10/19/20 05:20: Immature Granulocyte % (Auto) 0.4, Neutrophils (%) (Auto) 76.3H, Lymphocytes (%) (Auto) 15.1L, Monocytes (%) (Auto) 8.0H, Eosinophils (%) (Auto) 0.1, Basophils (%) (Auto) 0.1, Neutrophils # (Auto) 6.0, Lymphocytes # (Auto) 1.2L, Monocytes # (Auto) 0.6, Eosinophils # (Auto) 0.0, Basophils # (Auto) 0.0, Nucleated Red Blood Cells % (auto) 0.0, Anion Gap 5L, Glomerular Filtration Rate 56.9, Est imated Mean Plasma Glucose 146H, Hemoglobin A1c 6.7, Calcium Level 8.9 CBC/BMP Laboratory Tests 10/19/20 05:20 Discharge Medications Scheduled Aspirin (Aspirin EC) 81 Mg Tablet.dr, 81 MG PO DAILY, (Reported) Atenolol (Atenolol) 25 Mg Tablet, 25 MG PO DAILY, (Reported) Rosuvastatin Calcium (Crestor) 5 Mg Tablet, 5 MG PO DAILY, (Reported) Allergies Coded Allergies: shellfish derived (Verified Allergy, Intermediate, rash, vomiting, 10/17/20) Penicillins (Verified Adverse Reaction, Unknown, hyperventilation, 10/17/20) AIDAN ANDRES MD Oct 19, 2020 13:51
[2020-10-27] MEDS ORDERED: ONDA8TAB8 (14:50)
[2020-10-27] MEDS ORDERED: SUCR1TAB56 (14:50)
[2020-10-27] MEDS ORDERED: PANT40TA29 (14:50)
== END 2020-10-19 14:31 | disposition home or self-care (01) | DRG 376 ==
LOC: M ED 08:00 → M ED INP 11:02 → M MSPAV 12:01
PROVIDERS: ADMIT Internal Medicine Nephrology; ATTEND Internal Medicine Nephrology
PROC: 0DB58ZX Excision of Esophagus, Via Natural or Artificial Opening Endoscopic, Diagnostic (ICD-10-PCS; 2020-10-17)
PROC: 0DHA4UZ Insertion of Feeding Device into Jejunum, Percutaneous Endoscopic Approach (ICD-10-PCS; principal; 2020-10-18 08:00)
DX: C15.9 Malignant neoplasm of esophagus, unspecified (principal); K22.2 Esophageal obstruction; R13.10 Dysphagia, unspecified; I10 Essential (primary) hypertension; E11.9 Type 2 diabetes mellitus without complications; Z79.82 Long term (current) use of aspirin; Z79.899 Other long term (current) drug therapy; Z88.0 Allergy status to penicillin; Z91.013 Allergy to seafood; Z98.41 Cataract extraction status, right eye; Z98.42 Cataract extraction status, left eye

== ENCOUNTER → 2020-10-27 | Outpatient (CLI) | payer MEDICARE, OTHER ==
[~2020-10-27] MED LIST: ASPI-161 PO; ASPI81CH33 PO; ATEN25TA PO; CRES5TAB PO; METF-838 PO; METF500T13 PO; ONDA8TAB8; PANT40TA29; SUCR1TAB56
--- NOTE | 2020-10-27 13:52 | RADONC.CN ---
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 She presented to [facility] with complete dysphagia and weight loss which began in Fall 2019. She underwent EGD which revealed a large GEJ mass which was biopsied. She had staging CT scans while inpatient which showed no evidence of distant spread. A J-tube was placed. She was discharged on 10/19/20. She is seen today to establish oncologic care. Diagnosis/Treatment History Oncologic History Fall 2019, developed dysphagia culminating in 30 lb weight loss. She presented to [facility] with complete dysphagia on 10/17/20 and underwent EGD and J tube placement. CT scans revealed an obstructing distal esophageal mass without evidence of distant metastases. Pathology showed moderately differentiated adenocarcinoma. 10/17/20 Endoscopy Report (Dr. Estrada) Large, ulcerating mass with no bleeding and no stigmata of recent bleeding was found in the distal esophagus, 37 to 40 cm from the incisors. The mass was completely obstructing and circumferential. Biopsies were taken with a cold forceps for histology. Verification of patient identification for the specimen was done by the physician and nurse using the patient's name, date and medical record number. Estimated blood loss was minimal. One malignant-appearing, intrinsic severe (stenosis; an endoscope cannot pass) stenosis was found 37 to 40 cm from the incisors. This stenosis measured 5 mm (inner diameter) x 3 cm (in length). The stenosis was traversed after downsizing scope. Localized moderate mucosal changes characterized by nodularity were found at the gastroesophageal junction. The duodenal bulb and second portion of the duodenum were normal. 10/17/20 Pathology: Lower esophageal mass, biopsy: Moderately differentiated adenocarcinoma. Negative for HER2 The case was sent to [facility] for consultation and HER testing, please see complete report [id number] scanned in EMR. Imagin10/17/20 CT abdomen pelvis FINDINGS: Preliminary digital confectionery laboratory manager radiograph shows a normal bowel gas pattern. Mass effect is again noted the gastroesophageal junction with dilation of the esophagus likely related to esophageal malignancy. There are 2 normal-sized celiac axis lymph nodes and 1 normal-sized para soft ARMANDO lymph node. No definite adenopathy. The liver and the spleen are normal in size and homogeneous in texture. No focal liver lesion is seen. Normal adrenal glands are seen. No abnormality is noted in the pancreas. The gallbladder contains calculi layering in the dependent portion of its lumen. Kidneys enhance symmetrically and are morphologically intact. No evidence of renal mass or hydronephrosis. There is extensive vascular calcification. 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 The SMA origin is unremarkable. There is vascular calcification at the origin of both renal arteries. The left renal artery is smaller than the right. 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 A aorto left femoral graft is seen in place and patent. This is a Y-shaped graph with an aorto left to right fem-fem crossover component anastomosing to the right common femoral artery. Small and large intestinal bowel loops are unremarkable in the abdomen and pelvis except for some left colonic diverticulosis without CT evidence of diverticulitis. The appendix is surgically absent. There is a history of left colonic resection. No colonic mass lesion is apparent. IMPRESSION: GE junction mass suggestive of esophageal malignancy. There are several normal- sized adjacent lymph nodes. No definite adenopathy or evidence of metastatic disease. Left colonic diverticulosis. 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 Left colonic diverticulosis and cholelithiasis noted. 10/17/20 CT chest FINDINGS: Preliminary digital confectionery laboratory manager radiographs are unremarkable. An air and fluid dilated esophagus is seen throughout the thoracic and cervical esophageal region. There is a soft tissue fullness at the gastroesophageal junction suggesting a distal esophageal mass. This measures approximately 2.4 x 3.7 cm. Esophageal malignancy must be suspected. There is no regional lymphadenopathy seen. No hilar or mediastinal mass or adenopathy is observed. No pleural or pericardial effusion is seen. There is good opacification of the pulmonary arterial tree and the aorta. There is no evidence of pulmonary embolus, aortic aneurysm or dissection. Vascular calcification is observed. There is some coronary artery calcifica tion. Normal adrenal glands are seen. No bony destructive lesion is seen. Lung window settings show no evidence of infiltrate, atelectasis, or pulmonary nodule. IMPRESSION: Mass effect in the distal esophagus suggestive of an esophageal malignancy. Esophageal obstruction is evident in that the esophagus is moderately dilated and filled with ingested material and air. No evidence of adenopathy or metastatic disease. Interval History Krystal is here with her daughter. She is able to take small sips of clear liquids. She is persistently thirsty. No significant GERD prior to Fall 2019. She is struggling with tube feeds. Only taking 2 of 4 recommended cans of Jevity daily, d/t nausea and diarrhea that ensues with feeds. She also does not like continuous feeding as it prevents her from doing other ADLs. She has no CP, she has minimal GREGG. She is attempting to quit smoking since admission. She does not want quit aids at this time prefers cold turkey. She lives alone () but has good social support. She declines home care referral. Fully ambulatory, can go upstairs without SOB. Main goal is to eat again. Past Medical History: HPL HTN PAD DMII (diet control) Past Surgical History: Appendectomy 1964 Cataracts 2004 Hysterectomy 2017 Family History: No family history of cancer Social History: Current smoker (quit attempt in progress) 0.5 ppd prior to admission for 50+ years, 30-40 pack year estimated Used to drink 1-2 alcoholic beverages weekly Allergies / Meds Allergies: Coded Allergies: shellfish derived (Verified Allergy, Intermediate, rash, vomiting, 10/17/20) Penicillins (Verified Adverse Reaction, Unknown, hyperventilation, 10/17/20) Home Meds Reported Medications Aspirin (Aspirin EC) 81 Mg Tablet.dr, 81 MG PO DAILY 10/17/20 Atenolol (Atenolol) 25 Mg Tablet, 25 MG PO DAILY 10/17/20 Rosuvastatin Calcium (Crestor) 5 Mg Tablet, 5 MG PO DAILY 10/17/20 Review of Systems Constitutional: Denies: Chills, Fever, Night Sweats Eyes: Denies: Pain, Vision change HEENT: Denies: Head Aches, Dysphagia, Sore Throat Skin: Denies: Rash, Lesions, Bruising Pulmonary: Denies: Dyspnea, Cough Cardiovascular: Denies: Chest Pain, Palpitations, Edema Gastrointestinal: Reports: Nausea, Diarrhea; Denies: Vomiting, Abdominal Pain, Hematochezia Genitourinary: Denies: Dysuria, Frequency, Incontinence Hematologic: Denies: Bruising, Petecchia, Enlarged Lymph Nodes Musculoskeletal: Denies: Neck pain, Back pain Neurological: Denies: Weakness, Numbness, Incoordination Psych: Reports: Mood Normal; Denies: Memory Issues, Thoughts of Self Harm Vital Signs Ht 63" Wt 128 lbs BMI 22.7 T 98 P 70 RR 18 BP 158/69 O2 99% Pain 0 Fatigue 2 General Exam: Positive: Alert, Cooperative, No Acute Distress Eye Exam: Positive: PERRLA, EOMI ENT EXAM: Positive: Mucous membr. moist/pink, Pharynx Normal Neck Exam: Negative: Thyromegaly, Lymphadenopathy Chest Exam: Positive: Normal air movement; Negative: Rales, Rhonchi, Wheezing Heart Exam: Positive: Rate Normal, Regular Rhythm Abdomen Exam: Positive: Soft, Other (J tube site CDI, sutures remain in place. ); Negative: Tenderness, Mass Extremity Exam: Negative: Edema, Tenderness Skin Exam: Positive: Nl turgor and temperature; Negative: Rash Neuro Exam: Positive: Normal Gait, Normal Speech, Cranial Nerves 3-12 NL Psych Exam: Positive: Mental status NL, Mood NL, Memory Intact Diagnostic and Laboratory Diagnostic Review Radiologic images, relevant labs and pathology reports were personally reviewed and discussed with Ms. Olivas. Assessment and Plan Impression Ms. 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 She presented to [facility] with complete dysphagia and weight loss which began in Fall 2019. She underwent EGD which revealed a large GEJ mass which was biopsied. She had staging CT scans while inpatient which showed no evidence of distant spread. A J-tube was placed. She was discharged on 10/19/20. She is seen today to establish oncologic care. Stage Pending PET-CT, [id number] adenocarcinoma of GEJ Performance Status ECOG 0 Plan We had an extensive discussion with Ms. Olivas regarding the diagnosis at hand and available therapeutic options. She is doing reasonably well overall and maintaining good PS. I have instructed her to add imodium to mitigate the diarrhea from her TF. She can add zofran PRN as well. I want her to work hard to get to her TF goal 4 cans jevity daily. She said she would try these additional measures. She can always call me to advise on feeding matters and symptoms. With respect to her tumor, it is bulky (>3cm) and distal, emanating from and straddling the GEJ, without significant intragastric extension. I see no bulky regional adenopathy or distant metastases on her CT scans. I have ordered PET-CT which will be done on 11/09/20 to complete staging. She would benefit from surgical consultation, and agreed to referral to the thoracic surgery group at [facility]. I will facilitate this for her. I have order ed PFTs to be done immediately given her smoking history. I have also referred her to medical oncology here for consideration of systemic therapy. If she is deemed a surgical candidate then I would give neoadjuvant chemoradiation 45 Gy in 25 fractions with concurrent carbo/taxol as per TYLER. If she is inoperable then we could consider definitive chemoradiation. We discussed the logistics of receiving radiation therapy in detail including the need for a 1-time planning session. This can occur in the coming weeks contingent upon the PET-CT and surgical consultations. I anticipate late in the week of 11/09/20 would be good for this. We reviewed the side effects of treatment including fatigue, esophagitis and fibrosis, I deferred discussion of the surgical approaches and side effects except to say that esophagectomy is a major operation which can be morbid and requires a long recovery period. After discussing the risks, benefits and alternatives to radiation therapy, Ms. Olivas was amenable to pursuing radiotherapy as a component of multimodality therapy for her esophageal cancer. All questions were answered to the patient's satisfaction. We instructed the patient that if there were any questions,concerns or changes in clinical status in the interim to contact us. Recommendations Surgical consultation @ [facility] (Dr. Peace emailed) PET-CT 11/09/20 PFTs Medical oncology consultation here Final treatment recommendations pending above Would anticipate simulation week of 11/09/20 Imodium/zofran PRN with TF Billing Statement Total time of [70] minutes was spent preparing for the visit [5], obtaining HPI [9], examining the patient [3], reviewing diagnostic tests [5], discussing management options [32], coordinating care [8], and writing this note [8]. CHARLES VILLANUEVA MD Oct 27, 2020 12:50
== END ==
LOC: M ONCR 09:42
PROVIDERS: ATTEND General Practice
DX: C15.9 Malignant neoplasm of esophagus, unspecified (principal); F17.210 Nicotine dependence, cigarettes, uncomplicated

== ENCOUNTER → 2020-11-09 | Outpatient (CLI) | payer MEDICARE, OTHER ==
[~2020-11-09] MED LIST changes: +ONDA8TAB8 SL
--- NOTE | 2020-11-09 13:09 | REP ---
INDICATION: STAGING ESOPHOGEAL CANCER C15.5. Moderately differentiated adenocarcinoma on pathology. Lower 3rd esophageal cancer. COMPARISON: Comparison CT study of the chest is from 17 October 2020.. TECHNIQUE: Forty-six minutes following the intravenous injection of a 16.71 mCi dose of F-18 FDG, three-dimensional PET scintigraphy is acquired from the skull base to the proximal thighs. Triplanar noncontrast CT scanning is acquired through the same anatomic range for attenuation correction, and image registration with scan parameters optimized to minimize radiation exposure to the patient. PET scintigraphy and CT datasets were fused and displayed on a workstation with multiplanar and projection display capability. FINDINGS: Head and neck soft tissues are unremarkable. No abnormal refugio uptake is seen in the neck soft tissues. There is again noted to be evidence of esophageal obstruction with dilation of the fluid-filled esophagus down to the GE junction. At the level of the previously identified distal esophageal mass, there is only minimal increased uptake, maximum standard uptake value is mildly hypermetabolic, 3.73. There is normal symmetrical uptake in the adrenal glands. Slight adrenal fullness is noted bilaterally. No other abnormal abdominal hypermetabolic uptake is seen. No abnormal refugio uptake is appreciated. Cholelithiasis is seen. A feeding jejunostomy tube is noted in place. Left colonic diverticulosis is seen. IMPRESSION: The known malignant mass obstructing the distal esophagus is only mildly hypermetabolic, 3.73. No scintigraphic evidence of metastasis. Slight fullness in the adrenal glands bilaterally most likely adrenal hyperplasia. <Electronically signed by Indio Mcdermott > 11/09/20 [id number]
== END ==
LOC: M PLARAD 09:16
PROVIDERS: ATTEND General Practice
DX: C15.5 Malignant neoplasm of lower third of esophagus (principal); K57.30 Diverticulosis of large intestine without perforation or abscess without bleeding; K80.20 Calculus of gallbladder without cholecystitis without obstruction
CPT/HCPCS: 78815; A9552

== ENCOUNTER → 2020-11-13 | Outpatient (CLI) | payer MEDICARE, OTHER ==
[~2020-11-13] MED LIST changes: +ALCOPAD25 TOP; +B-122500 PO; +BLOOKIT21 XX; +CYAN2500 SL; +FERR1TAB8 PO; +FERR325T3 PO; +GLUC1TES2 XX; +LANC30MI XX; +LANTINJ4 SC; +LIDOCAINE 1% MDV 20ML VIAL As Ordered ONE; +METF-877 PO; +METF10004 PO; +MIDAZOLAM INJ 2MG/2ML VIAL (J2250 PER 1MG) As Ordered ONE; +ONDA8TAB10 PO; +ONDANSETRON 4MG/2ML VIAL As Ordered ONE; +PEN1MIS21 SC; +PROC10TA4 PO; +VANCOMYCIN 1000MG/20ML VIAL As Ordered ONE; +ceFAZolin 1GM VIAL (J0690 PER 500MG) As Ordered ONE; +diphenhydrAMINE 50MG/ML VIAL (J1200) As Ordered ONE; +fentaNYL 100 MCG/2 ML INJECTION (J3010) As Ordered ONE
--- NOTE | 2020-11-13 09:49 | IRHP ---
[facility] IR Pre-Procedure H & P General Date of Service: Nov 13, 2020 Procedure: Same Day Surgery Interval History and Physical I have seen the patient and reviewed last H & P performed within 30 days. There is no significant interval change. History of Present Illness Chief Complaint The patient is a 70-year-old female admitted with a reason for visit of Esophageal Ca. PRE-PROCEDURE DIAGNOSIS: Esophageal cancer HEART: Normal rate. LUNGS: Normal breathing at rest. ASA Classification ASA Classification: III-Severe systemic dis. Mallampati Score: II NPO: Yes Problems with prior sedation: No Obstructive Sleep Apnea: No Plan moderate sedation Allergies Coded Allergies: shellfish derived (Verified Allergy, Intermediate, rash, vomiting, 10/17/20) Penicillins (Verified Adverse Reaction, Unknown, hyperventilation, 10/17/20) Home Medications Scheduled Aspirin (Aspirin EC), 81 MG PO DAILY, (Reported) Atenolol (Atenolol), 25 MG PO DAILY, (Reported) Rosuvastatin Calcium (Crestor), 5 MG PO DAILY, (Reported) Discontinued Medications Ondansetron (Ondansetron Odt), 1 TAB SL BIDP, (Reported) Discontinued Reason: Pt states not taking VS, I&O, 24H, Fishbone Vital Signs/I&O Vital Signs Date Time Temp Pulse Resp B/P (MAP) Pulse Ox O2 Delivery O2 Flow Rate FiO2 11/13/20 08:50 97.9 87 18 97 Room Air RICHARD CINTRON MD Nov 13, 2020 09:49
[2020-11-13 12:29] VITALS: BP 142/76
--- NOTE | 2020-11-18 13:34 | IRPON ---
IR Postoperative Note Date Of Procedure: Nov 13, 2020 Time Of Procedure: 16:00 IR Postoperative Note IR Ultrasound and fluoroscopy guided port placement. IR Ultrasound of the neck. IR Moderate sedation. Clinical indication: Esophageal cancer. Physician: Dr. Petty. Procedure: The patient was advised of the benefits, risks, and alternatives of the procedure and informed consent was obtained. A time-out was performed with verification of the patient's name, MRN, site of procedure and type of procedure to be performed. The patient was positioned in the supine position on the angiographic table. The site was prepped and draped in the usual sterile fashion. Moderate sedation was performed by the physician including the presence of an independent trained RN who assisted and monitored the patient's level of consciousness and physiologic status. Following the administration of fentanyl and Versed , the physician spent 45 minutes of continuous face to face time with the patient. Ultrasound of the neck reveals a patent and compressible right internal jugular vein. A program director scouting radiograph reveals no gross abnormality. The neck and anterior chest wall were anesthetized with lidocaine. The right internal jugular vein was accessed using a microintroducer needle under ultrasound guidance, via a lateral approach. An 018 wire was advanced into the superior vena cava, the needle was removed and a microsheath was placed. An Amplatz wire was then passed into the inferior vena cava. An incision at the internal jugular vein access site and anterior chest wall were made using a scalpel. An incision was made at the anterior chest wall. A small pocket was created using a combination of blunt and sharp dissection. A tunneling device was then used to pass the catheter from the pocket to the neck puncture site. An 8- [place] Angio [employer] Smart power port was then positioned in the pocket. The catheter was then measured and cut. The introducer sheath was exchanged for a peel-away sheath. The catheter was passed through the peel-away sheath into the internal jugular vein and the peel-away sheath was removed. The port tip was positioned at the cavoatrial junction. The port was then accessed with a French needle. The port flushes and aspirates well. The puncture site in the neck was closed. The chest wall incision was then closed with 2-0 Vicryl and 4-0 Monocryl. Glue and Steri- Strips were applied. A sterile dressing was then applied. The patient tolerated the procedure well and was returned to the PRU in stable condition. Estimated blood loss: <5 ml. Complications: None. Conclusion: 1. Successful placement of an 8-[place] Angio dynamics Smart power port via the right internal jugular vein. The port is ready for immediate use. 2. Patient to follow up in IR clinic in 2 weeks. Thank you for this referral. RICHARD PETTY MD Nov 18, 2020 13:34
== END ==
LOC: M IRPRO 08:30
PROVIDERS: ATTEND Internal Medicine Hematology & Oncology
DX: C15.9 Malignant neoplasm of esophagus, unspecified (principal)
CPT/HCPCS: 36561; 99152; C1769; C1788; C1894; J1200; J1642; J1644; J2250; J2405; J3010; J3370

== ENCOUNTER 2020-11-29 06:23 | Inpatient (IN) | payer MEDICARE, OTHER ==
[~2020-11-29] VITALS: Ht 160 cm; Wt 129.0 kg
[~2020-11-29 06:23] MED LIST changes: -ALCOPAD25 TOP; -B-122500 PO; -BLOOKIT21 XX; -CYAN2500 SL; -FERR1TAB8 PO; -FERR325T3 PO; -GLUC1TES2 XX; -LANC30MI XX; -LANTINJ4 SC; -LIDOCAINE 1% MDV 20ML VIAL As Ordered ONE; -METF-877 PO; -METF10004 PO; -MIDAZOLAM INJ 2MG/2ML VIAL (J2250 PER 1MG) As Ordered ONE; -ONDANSETRON 4MG/2ML VIAL As Ordered ONE; -PEN1MIS21 SC; -VANCOMYCIN 1000MG/20ML VIAL As Ordered ONE; -ceFAZolin 1GM VIAL (J0690 PER 500MG) As Ordered ONE; -diphenhydrAMINE 50MG/ML VIAL (J1200) As Ordered ONE; -fentaNYL 100 MCG/2 ML INJECTION (J3010) As Ordered ONE
[2020-11-29] MEDS ORDERED: NS 1,000 ML IV ONE (07:50)
[2020-11-29] MEDS ORDERED: ONDANSETRON 4MG/2ML VIAL As Ordered ONE (08:30)
[2020-11-29] MEDS ORDERED: ONDANSETRON 4MG/2ML VIAL IV ONE ×2 (08:30→10:40)
[2020-11-29 08:56] LABS: BASO % 0.1 % (0.0-1.0); EOS % 0.1 % (0.0-3.0); HEMATOCRIT 35.8 % (36.0-47.0); HEMOGLOBIN 11.1 g/dl (12.0-15.5); LYMPH # 0.1 10^3/uL (1.5-5.0); LYMPH % 1.7 % (24.0-44.0); MEAN CORPUSCULAR HEMOGLOBIN 29.2 pg (27.0-33.0); MEAN CORPUSCULAR VOLUME 94.2 fl (80.0-96.0); MONO # 0.1 10^3/uL (0.0-0.8); MONO % 1.5 % (2.0-8.0); NEUTROPHILS % 95.9 % (36.0-66.0); PLATELET COUNT, AUTOMATED 167 10^3/uL (150-450); WHITE BLOOD COUNT 7.3 10^3/uL (4.0-10.0)
[2020-11-29 09:27] LABS: INR 1.14; PROTHROMBIN TIME 14.8 SECONDS (12.5-14.3)
[2020-11-29 09:28] LABS: RSV AMPLIFICATION NEGATIVE (NEGATIVE)
[2020-11-29 09:37] LABS: ALT/SGPT 21 U/L (12-78); AMYLASE 25 U/L (25-115); BILIRUBIN,DIRECT 0.2 MG/DL (0.0-0.2); BILIRUBIN,TOTAL 0.4 MG/DL (0.2-1.0); BLOOD UREA NITROGEN 63 MG/DL (7-18); CALCIUM LEVEL 8.7 MG/DL (8.8-10.2); CARBON DIOXIDE LEVEL 28 MEQ/L (21-32); CHLORIDE LEVEL 115 MEQ/L (98-107); CK-MB VALUE MASS < 1.0 NG/ML (<3.6); CPK CREATINE PHOSPHOKINASE 39 U/L (26-192); CREATININE FOR GFR 1.56 MG/DL (0.55-1.30); GLOMERULAR FILTRATION RATE 34.7 (>39); GLUCOSE, FASTING 552 MG/DL (70-100); LIPASE 221 U/L (73-393); MB/CK RELATIVE INDEX 2.56 (< OR =4); POTASSIUM SERUM 5.2 MEQ/L (3.5-5.1); SODIUM LEVEL 151 MEQ/L (136-145); TOTAL PROTEIN 6.7 GM/DL (6.4-8.2); TROPONIN I < 0.02 NG/ML (< 0.10)
[2020-11-29] MEDS ORDERED: ISOVUE-370 76% 100ML VIAL As Ordered ONE (09:38)
[2020-11-29] MEDS ORDERED: HumuLIN R (REGULAR) INSULIN (NovoLIN R) **100U/ML** PER UNIT IV STA (09:39)
[2020-11-29 10:06] LABS: VENOUS BASE EXCESS -0.9 (-2.0-2.0); VENOUS HCO3 25.1 MEQ/L (23.0-27.0); VENOUS O2 SATURATION 69.8 % (60.0-80.0); VENOUS PARTIAL PRESSURE CO2 48.2 mmHg (38.0-50.0); VENOUS PARTIAL PRESSURE O2 40.6 mmHg (30.0-50.0); VENOUS PH 7.335 UNITS (7.330-7.430); VENOUS STANDARD HCO3 23.2 MEQ/L; VENOUS TOTAL CO2 26.6 MEQ/L (24.0-28.0)
[2020-11-29] MEDS ORDERED: MORPHINE 2 MG/ML 1ML VIAL (J2270) IV ONE (10:40)
--- NOTE | 2020-11-29 10:52 | REP ---
INDICATION: abd pain, J tube fell out, general malaise. COMPARISON: Comparison CT study abdomen and pelvis October 17, 2020.. TECHNIQUE: Helical scanning was acquired and 4 mm axial images are re-formatted. Coronal and sagittal MPR images were generated and reviewed. The contrast enhancement dose is 100 mL of intravenous Isovue 370. FINDINGS: Preliminary digital mottle lay up operator radiographs demonstrate an unremarkable bowel gas pattern. There are surgical clips in the central abdomen. On axial CT images the lung bases are clear. There is no evidence of pleural effusion. The liver and the spleen are normal in size homogeneous in texture. No adrenal lesion is seen. The known gastroesophageal junction mass is again seen unchanged since the October 17, 2020 study. The thoracic esophagus is less dilated today however. There is some distal esophageal mural thickening and esophageal fluid content. The celiac axis lymph nodes that were identified previously are little less prominent. No new new adenopathy is seen. No adrenal mass is observed on either side. No renal mass is seen. There are gallstones in the dependent portion the gallbladder. There is air within the jejunostomy tract in the abdominal wall. Jejunal loops are seen apparently adherent to the anterior abdominal wall in this region. There is some edema and thickening of the rectus muscle in this location. No abnormal fluid collection or abscess is seen. There is left colonic diverticulosis. Urinary bladder is intact. No evidence of bowel obstruction. The uterus is surgically absent. The appendix is surgically absent by history as well. No pelvic mass or adenopathy is seen. IMPRESSION: GE junction mass centrally unchanged. Less distention of the thoracic esophagus. There is air and a tiny amount of fluid in the jejunostomy tract with some adjacent inflammation of the anterior abdominal wall. Cholelithiasis. Left colonic diverticulosis. No other acute intra-abdominal abnormality. <Electronically signed by Indio Mcdermott > 11/29/20 [id number]
[2020-11-29 11:18] LABS: ACETONE/KETONE 16.85 MG/DL (<2.81)
[2020-11-29 11:23] LABS: MAGNESIUM LEVEL 3.1 MG/DL (1.8-2.4)
[2020-11-29] MEDS ORDERED: D5W/0.45% SODIUM CHLORIDE 1,000 ML IV SCH (11:50)
[2020-11-29] MEDS ORDERED: GLUCOSE 4GM CHEW TABLET PO PRN (11:50)
[2020-11-29] MEDS ORDERED: ACETAMINOPHEN TAB 650MG DOSE (2X325MG) PO PRN (11:50)
[2020-11-29] MEDS ORDERED: DEXTROSE 50% 50 ML SYRINGE IV PRN (11:50)
[2020-11-29] MEDS ORDERED: GLUCAGON INJ 1MG VIAL SC PRN (11:50)
[2020-11-29] MEDS ORDERED: LEVEMIR (INSULIN DETEMIR) 1 UNITS/0.01ML SC SCH (12:00)
[2020-11-29] MEDS: HumaLOG INSULIN (NovoLOG) PER UNIT SC SCH ×2 (12:16→18:11)
--- NOTE | 2020-11-29 12:17 | HPEPDOC ---
[facility] Medical History & Physical Date of Admission Nov 29, 2020 Date of Service: Nov 29, 2020 History and Physical Chief complaint: Who presented to the emergency room after her PEG tube was dislodged History of present illness: Patient is a 70-year-old female who presented to emergency room today because her PEG tube had fallen out. Patient reports that he at home she has an infusion of 3 cans of ensure while asleep, at a rate of 60 cc/hour. Overnight patient had started this evening, however, woke up and found that the tube had gotten dislodged. Patient had reported pain around the site uupon arrival, however, does not experience any significant pain after receiving morphine. Patient reports some nausea. Has been having a very mild productive cough. Denies any shortness of breath, chest pain or vomiting. Denies any abdominal discomfort. Currently denies any diarrhea. Her last bowel movement was a few days ago and reported normal and not dark. Denies any urinary discomfort. Denies any fevers or chills. Denies LE swelling. Past Medical History: Gastroesophageal adenocarcinoma (Dx 10/17/2020; Receiving radiation and chemothe rapy) HTN DLP PAD s/p Aorto-femoral stent Celiac artery high grade stenosis NIDDM2 Past Surgical History: Appendectomy Bilateral cataract surgery Total hysterectomy and bilateral salpingo-oophorectomy Aorto-femoral stent Port placement 11/13 G-tube placement 10/18/[address] Estrada Allergies: See below Medications: See below Family History: - Mother with history of diabetes - Father with history of CAD, Stroke, Alcohol abuse - No history of malignancies Social History: - Denies the use of alcohol or illicit drugs; patient reports that she quit smoking early October 2020 - Denies recent travel; patient reports she lives with her son, who has tested positive for COVID19 yesterday - Lives with son Review of Systems: 10 point review of systems complete, all negative otherwise stated in HPI Physical exam: - Vitals: BP [122/60], HR [114], RR [16], Sat [97%RA], Temp [96.5F] - General: Lying in bed, No acute distress, Speaking in full sentences, AAOx3 - HEENT: NC, AT, PERRLA - CVS: Tachycardic, +S1S2 - Lungs: Fair air entry bilaterally, No appreciable wheezing / rales / rhonchi - Abdomen: Soft, Non-distended, Non-tender, Site where feeding tube noted - now with ostomy bag around it - ExtremitiesNo lower extremity edema, No calf tenderness - Neuro: No focal motor or sensory deficit - Skin: No visible rashes Labs: See below Imaging: CT abdomen / pelvis 11/29: GE junction mass centrally unchanged. Less distention of the thoracic esophagus. There is air and a tiny amount of fluid in the jejunostomy tract with some adjacent inflammation of the anterior abdominal wall. Cholelithiasis. Left colonic diverticulosis. No other acute intra-abdominal abnormality. EKG: See below Assessment and Plan: Dislodged feeding tube - Patient reported that when she woke up this morning her feeding tube was dislodged - Site does not appear to have any signs of infection - No leukocytosis or lactic acidosis - General surgery was called on consultation for reinsertion of PEG tube - Will keep patient NPO for now - Resume tube feedings with Ensure (3 cans with infusion rate of 60cc/hour) once PEG tube is re-inserted Gastroesophageal adenocarcinoma - Dx 10/17/[address] Estrada - PET scan completed 11/09/2020 is without scintigraphic evidence of metastasis - Patient has started receiving radiation therapy with Dr. Ty on 11/23; completed 5 rounds - Patient follows with Dr. Conteh, has received first dose of chemotherapy on 11/26 with Carbotaxol Hyperglycemia - likely 2/2 NIDDM2 and non-compliance with medications - Patient had stopped taking her metformin since October after her poor oral intake - Will start patient on ISS and low dose Levemir BID Hypernatremia - Likely 2/2 dehydration - Will start D5 1/2 NS - Will repeat lab work this afternoon Hyperkalemia - Will continue with IV fluid hydration - Will continue IV fluid hydration - Will repeat lab work this afternoon Acute kidney injury - likely 2/2 dehydration - Cr baseline of 1-1.2; Cr currently elevated - s/p 1 L of NS in the ER - Will c/w D5 1/2 NS given hypernatremia HTN - BP well controlled - Will hold Atenolol pending PEG tube DLP - Rosuvastatin on hold pending PEG tube PAD s/p Aorto-femoral stent - ASA on hold pending PEG tube Celiac artery high grade stenosis - ASA on hold pending PEG tube DVT prophylaxis - Will start Heparin Vital Signs Vital Signs Date Time Temp Pulse Resp B/P (MAP) Pulse Ox O2 Delivery O2 Flow Rate FiO2 11/29/20 11:11 120 20 122/60 97 Room Air 11/29/20 06:23 96.5 Laboratory Data Labs 24H Laboratory Tests 2 11/29/20 08:44: Immature Granulocyte % (Auto) 0.7, Neutrophils (%) (Auto) 95.9H, Lymphocytes (%) (Auto) 1.7L, Monocytes (%) (Auto) 1.5L, Eosinophils (%) (Auto) 0.1, Basophils (%) (Auto) 0.1, Neutrophils # (Auto) 7.0, Lymphocytes # (Auto) 0.1L, Monocytes # (Auto) 0.1, Eosinophils # (Auto) 0.0, Basophils # (Auto) 0.0, Nucleated Red Blood Cells % (auto) 0.0, Prothrombin Time 14.8H, Prothromb Time International Ratio 1.14, Activated Partial Thromboplast Time 22.0L, Anion Gap 8, Glomerular F iltration Rate 34.7L, Estimated Mean Plasma Glucose 212H, Hemoglobin A1c 9.0, Lactic Acid Level 2.0, Calcium Level 8.7L, Magnesium Level 3.1H, Total Bilirubin 0.4, Direct Bilirubin 0.2, Aspartate Amino Transf (AST/SGOT) 8, Alanine Aminotransferase (ALT/SGPT) 21, Alkaline Phosphatase 68, Total Creatine Kinase 39, Creatine Kinase MB < 1.0, Creatine Kinase MB Relative Index 2.56, Troponin I < 0.02, Total Protein 6.7, Albumin 3.0L, Albumin/Globulin Ratio 0.8L, Amylase Level 25, Lipase 221, B-Hydroxybutyrate 16.85H, Coronavirus (COVID-19)(PCR) NEGATIVE, Influenza Type A (RT-PCR) NEGATIVE, Influenza Type B (RT-PCR) NEGATIVE, Respiratory Syncytial Virus (PCR) NEGATIVE 11/29/20 08:51: POC Glucose (Misc Panel) 502*H, POC Sodium (Misc Panel) 149H, POC Potassium (Misc Panel) 5.2H, POC Chloride (Misc Panel) 112H, POC Total CO2 (Misc Panel) 28.0H, POC Blood Urea Nitrogen (Misc Panel 55H, POC Ionized Calcium (Misc Panel) 4.8, POC Creatinine (Misc Panel) 1.4H, POC Hematocrit (Misc Panel) 33.0L 11/29/20 10:00: Blood Gas Bicarbonate Standard 23.2, Venous Blood pH 7.335, Venous Blood Partial Pressure CO2 48.2, Venous Blood Partial Pressure O2 40.6, Venous Blood Total Carbon Dioxide 26.6, Venous Blood HCO3 25.1, Venous Blood Oxygen Saturation 69.8, Venous Blood Base Excess -0.9 11/29/20 10:51: Bedside Glucose (Misc Panel) 291H CBC/BMP Laboratory Tests 11/29/20 08:44 Microbiology Microbiology 11/29/20 Blood Culture, Received Pending 11/29/20 Blood Culture, Received Pending Home Medications Scheduled Aspirin (Aspirin EC) 81 Mg Tablet.dr, 81 MG PO DAILY Atenolol (Atenolol) 25 Mg Tablet, 25 MG PO DAILY Ondansetron HCl (Ondansetron HCl) 8 Mg Tablet, 8 MG PO TID Rosuvastatin Calcium (Crestor) 5 Mg Tablet, 5 MG PO DAILY Scheduled PRN Prochlorperazine Maleate (Prochlorperazine Maleate) 10 Mg Tablet, 1 TAB PO Q6H PRN for Breakthrough nausea/vomiting Allergies Coded Allergies: shellfish derived (Verified Allergy, Intermediate, rash, vomiting, 10/17/20) Penicillins (Verified Adverse Reaction, Unknown, hyperventilation, 10/17/20) SANJU FRANKLIN MD Nov 29, 2020 12:17
[2020-11-29 12:30] LABS: OSMOLALITY SERUM 361 MOSM/KG (280-301)
[2020-11-29] MEDS ORDERED: SOD POLYSTYRENE SULFONATE SUSP 30 GM/120 ML ENEMA PR ONE (14:00)
[2020-11-29 14:35] VITALS: BP 116/60
--- NOTE | 2020-11-29 14:36 | REP ---
INDICATION: assess position of new feeding tube. COMPARISON: Comparison is made with CT study done at 9:40 a.m. on this same date.. TECHNIQUE: Helical scanning is acquired. 3 mm axial images are generated. Coronal and sagittal MPR images are generated. FINDINGS: Preliminary digital personal computer network analyst radiograph demonstrates contrast opacified urine in the bladder and bilaterally in the renal collecting systems. Axial CT images demonstrate that the patient's feeding jejunostomy tube is been replaced. The new feeding tube appears in good position in the loop of jejunum previously noted at the tube tract an abdominal wall entry site. There is no evidence of free intraperitoneal air or new abnormal fluid collection. Cholelithiasis is again noted. There is an aorto bi femoral vascular graft again visualized. IMPRESSION: Feeding jejunostomy tube replacement appears in good position. <Electronically signed by Indio Mcdermott > 11/29/20 [id number]
[2020-11-29] MEDS ORDERED: ONDANSETRON 4MG/2ML VIAL IV PRN (15:30)
[2020-11-29] MEDS: HEPARIN SOD (PORCINE) 5000UNITS/ML 1ML VIAL/SYRINGE SC SCH ×2 (15:44→21:26)
[2020-11-29 16:40] LABS: CALCIUM LEVEL 8.2 MG/DL (8.8-10.2); CREATININE FOR GFR 1.21 MG/DL (0.55-1.30); GLOMERULAR FILTRATION RATE 46.6 (>39); MAGNESIUM LEVEL 2.8 MG/DL (1.8-2.4); POTASSIUM SERUM 4.6 MEQ/L (3.5-5.1)
[2020-11-29] MEDS: D5W 1,000 ML IV SCH (18:11)
[2020-11-29 20:00] VITALS: BP 135/60
[2020-11-29 20:24] LABS: CALCIUM LEVEL 8.2 MG/DL (8.8-10.2); CREATININE FOR GFR 1.35 MG/DL (0.55-1.30); POTASSIUM SERUM 4.3 MEQ/L (3.5-5.1)
[2020-11-29] MEDS: LEVEMIR (INSULIN DETEMIR) 1 UNITS/0.01ML SC SCH (21:26)
[2020-11-30] VITALS: BP 120/59
[2020-11-30 01:41] LABS: CALCIUM LEVEL 8.9 MG/DL (8.8-10.2); CREATININE FOR GFR 1.2 MG/DL (0.55-1.30)
[2020-11-30 04:00] VITALS: BP 136/64
--- NOTE | 2020-11-30 04:49 | CR ---
CONSULTATION DATE: 11/29/2020 REASON FOR CONSULTATION: Jejunostomy tube fell out. HISTORY OF PRESENT ILLNESS: The patient is a 70-year-old woman with obstructing esophageal cancer who had a J-tube placed by Dr. Estrada back in mid October. She has been using this for nutrition daily. She reports that she can take no oral food or fluids at this time. She has been receiving treatment. The patient reports that she had awakened on the morning of the and noticed that her J-tube had come out and was lying in the bed with her. She was brought to the Emergency Department just after 6:20 on the morning of the . The removal of the J-tube was confirmed. She was noted to have some redness at the site. I was asked to evaluate the patient regarding replacement of the J-tube. ALLERGIES: Penicillin and shellfish. CURRENT MEDICATIONS: 1. Aspirin. 2. Atenolol. 3. Zofran. 4. Prochlorperazine. 5. Rosuvastatin. SURGICAL HISTORY: The patient has had an appendectomy. She has had bilateral cataract surgery. She had a hysterectomy with bilateral salpingo-oophorectomy. She has an aortobifemoral bypass. She had her Infusaport placed November 13 and her jejunal tube was placed on October 18. MEDICAL HISTORY: Significant for her gastroesophageal adenocarcinoma. She has a history of hypertension, dyslipidemia, peripheral arterial disease and diabetes mellitus. FAMILY AND SOCIAL HISTORY: Not helpful. REVIEW OF SYSTEMS: No history of fevers or chills. PHYSICAL EXAMINATION: Physical exam reveals a frail appearing older woman lying quietly on the ER stretcher. She is alert. Examination of the abdomen reveals an open wound in the left upper quadrant about 1 cm in diameter. There is a small amount of old brownish-black debris on the skin and oozing from the wound. There is an area of redness perhaps 5 cm in diameter surrounding the J-tube site. She does have some bowel sounds present. The abdomen is soft otherwise but tender around the J-tube site. LABORATORY DATA: White count was 7, hemoglobin was 11, hematocrit 36, platelet count 167,000. Differential count showed 96% neutrophils, 2% lymphocytes and 2% monocytes. Chemistry profile showed a sodium of 151, potassium 5.2, chloride 115, CO2 28, BUN 63, creatinine 1.56 and a glucose of 552. A CT scan of the abdomen and pelvis showed some inflammation in the area of the old J-tube site with a couple of air bubbles in the abdominal wall. There was no evidence of any free air within the abdomen. IMPRESSION: Dislodged jejunostomy tube. PLAN: I counseled the patient and her family member regarding the benefit of attempting replacement of the tube now to preserve the patency of the entry site. I do not have a jejunostomy tube of that same sort accessible at this time. She was counseled for attempting placement with just a Manning catheter and is agreeable. A 16 [place] Manning catheter was therefore lubricated and inserted in through the skin opening. She was somewhat tender. It was possible to advance the catheter approximately 10 cm but I could not get it to advance to any significant degree down the small bowel although it clearly seems to have reached beyond the fascia. I then changed to an 18 [place] Manning catheter which was inserted and would extend approximately the same distance to about 10 cm before further advancement could not be achieved. Some of that same thick brown/black fluid came back through the tube. The #18 [place] Manning was then inserted and the balloon was inflated to approximately 5 ml. This seemed to clearly be beyond the fascia and prevent any further withdrawal of the tube. I elected to leave the tube in that position and to obtain a repeat CT scan to confirm that the catheter was in fact within the lumen of the bowel. The site was therefore dressed with some gauze sponges and a repeat abdominal CT without contrast was ordered. Inspection of the repeat imaging shows that the balloon is below the fascia and the tip of the catheter appears to press up against the inner wall of the small bowel at the J-tube site. PLAN: At this point I would recommend that we try to get the interventional radiologist to place a new tube through her existing J-tube site within the next day or two if necessary, the sooner the better overall. I would hope that she would be able to place a guidewire through this tube and then identify which limb of the small bowel the catheter should be inserted down and try to accomplish this using fluoroscopy and perhaps a guidewire or stent. Right now, she should be supported with intravenous fluids as she is not capable of taking any oral fluids. UNA
[2020-11-30] MEDS: HumaLOG INSULIN (NovoLOG) PER UNIT SC SCH ×4 (06:00→18:45)
[2020-11-30 06:21] LABS: BASO % 0.3 % (0.0-1.0); EOS # 0.1 10^3/uL (0.0-0.5); EOS % 1.8 % (0.0-3.0); HEMATOCRIT 33.9 % (36.0-47.0); HEMOGLOBIN 10.6 g/dl (12.0-15.5); LYMPH # 0.2 10^3/uL (1.5-5.0); LYMPH % 3.4 % (24.0-44.0); MEAN CORPUSCULAR HEMOGLOBIN 29.4 pg (27.0-33.0); MEAN CORPUSCULAR HGB CONC 31.3 g/dl (32.0-36.5); MEAN CORPUSCULAR VOLUME 93.9 fl (80.0-96.0); MONO # 0.1 10^3/uL (0.0-0.8); MONO % 1.8 % (2.0-8.0); NEUTROPHILS # 6.2 10^3/uL (1.5-8.5); PLATELET COUNT, AUTOMATED 135 10^3/uL (150-450); RED BLOOD COUNT 3.61 10^6/uL (4.00-5.40); WHITE BLOOD COUNT 6.7 10^3/uL (4.0-10.0)
[2020-11-30] MEDS: D5W 1,000 ML IV SCH ×2 (06:24→14:50)
[2020-11-30] MEDS: HEPARIN SOD (PORCINE) 5000UNITS/ML 1ML VIAL/SYRINGE SC SCH ×3 (06:24→22:17)
[2020-11-30] MEDS ORDERED: VANCOMYCIN HCL 1,000 MG, VIAL MATE ADAPTER 1 EACH in NS 250 ML IV ONE (06:35)
[2020-11-30 06:51] LABS: CALCIUM LEVEL 8.6 MG/DL (8.8-10.2); CREATININE FOR GFR 1.14 MG/DL (0.55-1.30); GLOMERULAR FILTRATION RATE 49.9 (>39); MAGNESIUM LEVEL 2.7 MG/DL (1.8-2.4); POTASSIUM SERUM 4.2 MEQ/L (3.5-5.1)
[2020-11-30 07:51] LABS: C REACTIVE PROTEIN QUANTITATIV 2.21 MG/DL (0.00-0.30)
[2020-11-30 07:52] VITALS: BP 123/59
[2020-11-30 08:19] LABS: ERYTHROCYTE SEDIMENTATION RATE 49 mm/hr (0-30)
[2020-11-30] MEDS: ASPIRIN 81 MG CHEW TABLET PEG SCH (09:00)
[2020-11-30] MEDS: LEVEMIR (INSULIN DETEMIR) 1 UNITS/0.01ML SC SCH ×2 (09:00→20:33)
[2020-11-30] MEDS: ROSUVASTATIN 10 MG TAB (CRESTOR) PEG SCH (09:00)
[2020-11-30] MEDS: atenoloL 25 MG TAB PEG SCH (09:00)
[2020-11-30] MEDS: AZTREONAM 1 GM in D5W MINI-BAG PLUS 50 ML IV SCH ×2 (09:58→16:35)
--- NOTE | 2020-11-30 11:15 | IPNPDOC ---
Text Note Date of Service The patient was seen on 11/30/20. NOTE Subjective: Patient was seen and examined this morning at bedside. She expresses frustration with her inability to drink water. She denies any current pain around her PEG tube site. She states she has some nausea which is unchanged. Denies fevers or chills. Denies irritation or swelling around port. Objective: VITAL SIGNS: see below GENERAL: Alert, comfortable, in no acute distress HEENT: Normocephalic, atraumatic, sclera anicteric, moist mucous membranes CARDIOVASCULAR: Tachycardic. Regular rhythm, normal S1 and S2. No murmurs, rubs, or gallops RESPIRATORY: Clear to auscultation bilaterally with equal air entry bilaterally. No wheezing, rhonchi, or rales. ABDOMEN: Soft, nondistended, bowel sounds present. Catheter in place with some drainage of fluid into the surrounding bandages. No erythema, warmth, or tenderness around catheter insertion site. EXTREMITIES: No cyanosis or edema. Pulses 2+/4 in bilateral upper and lower extremities SKIN: No erythema or warmth around port in right upper chest with mild tenderness to palpation. NEUROLOGIC: No focal deficits appreciated PSYCHIATRIC: Mood and affect appropriate Assessment/Plan: 70 year old female with a history of gastroesophageal adenocarc inoma currently on chemo and radiation therapy, who presented after her PEG tube was dislodged, admitted for reinsertion of PEG tube, found to have blood cultures positive for gram positive cocci now on IV antibiotics # Dislodged feeding tube - Site does not appear to have any signs of infection. No leukocytosis or lactic acidosis - General surgery was called on consultation for reinsertion of PEG tube, suggested IR consult. - Manning catheter inserted to maintain patency of J tube site - Will keep patient NPO for now - Resume tube feedings with Ensure (3 cans with infusion rate of 60cc/hour) once PEG tube is re-inserted - Scheduled with Dr. Petty/IR for J tube replacement today. # Bacteremia - two blood cultures positive for gram positive cocci, full results pending - continue IV abx vancomycin and aztreonam day #1 - repeat cultures x2 drawn - pt has port in place without any signs of surround infection - echocardiogram pending to evaluate for endocarditis - Infectious disease/Dr. Galan consulted, appreciate recommendations # Gastroesophageal adenocarcinoma - Dx 10/17/[address] Estrada - PET scan completed 11/09/2020 is without evidence of metastasis - Patient has started receiving radiation therapy with Dr. Ty on 11/23; due for radiation today - Patient follows with Dr. Conteh, has received first dose of chemotherapy on 11/26 with Carbotaxol # Hyperglycemia - likely 2/2 NIDDM2 and non-compliance with medications - Patient had stopped taking her metformin since October after her poor oral intake - Will start patient on ISS and low dose Levemir BID - pt more hypoglycemic today, likely as she is not receiving tube feeds. Levemir held this AM. # Hypernatremia - Likely 2/2 dehydration - continue D5W - monitor BMP daily # Acute kidney injury - likely 2/2 dehydration - Cr baseline of 1-1.2; Cr has returned to baseline - s/p 1 L of NS in the ER - continue D5W given hypernatremia # HTN - BP well controlled - Will hold Atenolol pending PEG tube # DLP - Rosuvastatin on hold pending PEG tube # PAD s/p Aorto-femoral stent - ASA on hold pending PEG tube # Celiac artery high grade stenosis - ASA on hold pending PEG tube DVT prophylaxis: sc Heparin Disposition: pending IR for J tube replacement, repeat blood cultures VS,Steve, I+O VS, Steve, I+O Laboratory Tests 11/29/20 15:59 11/29/20 19:51 11/30/20 01:04 11/30/20 06:03 Vital Signs Date Time Temp Pulse Resp B/P (MAP) Pulse Ox O2 Delivery O2 Flow Rate FiO2 11/30/20 07:52 98.1 102 20 123/59 (80) 99 Room Air I&O- Last 24 Hours up to 6 AM 11/30/20 05:59 Intake Total 1200 ml Output Total 200 ml Balance 1000 ml GME ATTESTATION GME ATTESTATION My faculty preceptor for this patient encounter was physically present during the encounter and was fully available. All aspects of the patient interview, examination, medical decision making process, and medical care plan development were reviewed and approved by the faculty preceptor. The faculty preceptor is aware and concurs with the plan as stated in the body of this note and will attest to such by his/her cosignature. ATTENDING NOTE I, Abhishek Dan, have independently examined this patient and performed my own physical exam, as well as reviewed the documentation and edited where necessary. I have discussed in detail with the resident / student the findings and plan of treatment as documented by the resident / student and edited their note. I agree with their findings and treatment plan and have edited their documentation. I w ill continue to follow the patient during this hospital stay. DIANA CHACKO D.O. Nov 30, 2020 11:15 ABHISHEK DAN MD Nov 30, 2020 12:09
[2020-11-30 13:22] VITALS: BP 119/58
[2020-11-30 13:55] LABS: CALCIUM LEVEL 8.8 MG/DL (8.8-10.2); CREATININE FOR GFR 1.18 MG/DL (0.55-1.30); GLOMERULAR FILTRATION RATE 47.9 (>39); POTASSIUM SERUM 4.4 MEQ/L (3.5-5.1)
[2020-11-30 16:33] VITALS: BP 134/62
[2020-11-30] MEDS ORDERED: HumaLOG INSULIN (NovoLOG) PER UNIT SC SCH (18:00)
[2020-11-30] MEDS ORDERED: FAT EMULSION IV 20% 500 ML IV SCH (18:00)
--- NOTE | 2020-11-30 19:48 | ECGEPIP ---
[facility] - ED Test Date: 2020-11-29 Pat Name: SEBASTIAN BAKER Department: Room: [place] [address] Gender: Female Professional Security Officer: NIVIA : 1950 Requested By: SAMUEL Dietrich PA-C Order Number: [id number] Reading MD: Megan Pantoja Measurements Intervals [place] Rate: 117 P: 13 IL: 142 QRS: 65 QRSD: 64 T: 24 QT: 342 QTc: 477 Interpretive Statements Sinus tachycardia NSTTW abnormalities No prior Electronically Signed on 11-30-2020 19:48:06 EDT by Megan Pantoja
[2020-11-30 20:00] VITALS: BP 115/56
[2020-11-30] MEDS: AMINO AC/ELECTROLYTE/DEX/CALC 1,000 ML IV SCH (22:18)
[2020-12-01] VITALS (7 sets, daily range): BP systolic 110–140; BP diastolic 53–86
[2020-12-01] MEDS: AZTREONAM 1 GM in D5W MINI-BAG PLUS 50 ML IV SCH ×4 (00:08→18:03)
[2020-12-01] MEDS: HumaLOG INSULIN (NovoLOG) PER UNIT SC SCH ×4 (00:20→18:00)
[2020-12-01 05:56] LABS: BASO % 0.3 % (0.0-1.0); EOS # 0.2 10^3/uL (0.0-0.5); HEMATOCRIT 31.2 % (36.0-47.0); HEMOGLOBIN 9.6 g/dl (12.0-15.5); LYMPH # 0.2 10^3/uL (1.5-5.0); LYMPH % 4.2 % (24.0-44.0); MEAN CORPUSCULAR HEMOGLOBIN 28.7 pg (27.0-33.0); MEAN CORPUSCULAR HGB CONC 30.8 g/dl (32.0-36.5); MEAN CORPUSCULAR VOLUME 93.4 fl (80.0-96.0); MONO # 0.1 10^3/uL (0.0-0.8); MONO % 2.2 % (2.0-8.0); NEUTROPHILS # 3.1 10^3/uL (1.5-8.5); NEUTROPHILS % 87.7 % (36.0-66.0); PLATELET COUNT, AUTOMATED 122 10^3/uL (150-450); RED BLOOD COUNT 3.34 10^6/uL (4.00-5.40); WHITE BLOOD COUNT 3.6 10^3/uL (4.0-10.0)
[2020-12-01 06:13] LABS: BLOOD UREA NITROGEN 26 MG/DL (7-18); CALCIUM LEVEL 8.1 MG/DL (8.8-10.2); CARBON DIOXIDE LEVEL 29 MEQ/L (21-32); CHLORIDE LEVEL 114 MEQ/L (98-107); CREATININE FOR GFR 0.89 MG/DL (0.55-1.30); GLOMERULAR FILTRATION RATE > 60.0 (>39); GLUCOSE, FASTING 230 MG/DL (70-100); MAGNESIUM LEVEL 2.4 MG/DL (1.8-2.4); POTASSIUM SERUM 4.1 MEQ/L (3.5-5.1); SODIUM LEVEL 146 MEQ/L (136-145)
[2020-12-01] MEDS: HEPARIN SOD (PORCINE) 5000UNITS/ML 1ML VIAL/SYRINGE SC SCH (06:27)
[2020-12-01] MEDS: VANCOMYCIN HCL 750 MG, VIAL MATE ADAPTER 1 EACH in NS 250 ML IV SCH (06:27)
[2020-12-01] MEDS: ROSUVASTATIN 10 MG TAB (CRESTOR) PEG SCH (09:00)
[2020-12-01] MEDS: atenoloL 25 MG TAB PEG SCH (09:00)
[2020-12-01] MEDS: ASPIRIN 81 MG CHEW TABLET PEG SCH (09:00)
[2020-12-01] MEDS: LEVEMIR (INSULIN DETEMIR) 1 UNITS/0.01ML SC SCH ×2 (09:17→21:07)
--- NOTE | 2020-12-01 12:10 | CR ---
CONSULTATION DATE: 11/30/2020 REASON FOR CONSULTATION: I was asked to consult by Abhishek Dan MD for evaluation of positive blood cultures with gram positive cocci in clusters and possible abdominal wall cellulitis. HISTORY OF PRESENT ILLNESS: Mrs. 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 The patient had a jejunostomy tube placed in October and she was getting tube feeds to her jejunostomy tube but it failed the night prior to admission and she came to the emergency room. She was having green bilious fluid around the wound with abdominal pain and increasing swelling and redness at that site. She was afebrile at admission. Her white count was 6.7. Blood cultures were obtained from the emergency room. Even though it stated that one was peripheral and one was from the port, the port has not been accessed since she has been here so I am not sure these were done from two different sites. Blood cultures are still pending. She was started on IV vancomycin and aztreonam after blood cultures came back positive and two more sets were repeated. On November 22, she was seen by Dr. Conteh from oncology and she received carboplatin and paclitaxel and Decadron 10 mg IV. That was her first cycle of chemotherapy. PAST MEDICAL HISTORY: l 1. 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 Mass measures 2.4 x 3[address] 2. Peripheral vascular disease, status post aortofemoral stent. 3. Celiac artery stenosis. 4. Noninsulin dependent diabetes. 5. Hypertension. 6. Dyslipidemia. PAST SURGICAL HISTORY: 1. Rotator cuff surgery. 2. Appendectomy. 3. Bilateral cataract surgery. 4. Total abdominal hysterectomy with bilateral salpingo-oophorectomy. 5. G-tube placement, 10/18/2020, Dr. Estrada. ALLERGIES: PENICILLIN AND SHELLFISH. MEDICATIONS: 1. Aspirin 81 mg p.o. daily. 2. Aztreonam 1 gm IV q.8 hours. 3. Crestor 5 mg G-tube daily. 4. Insulin sliding scale. 5. Kayexalate 3 gm once on 11/29. 6. Insulin Levemir 10 units subcu b.i.d. 7. TPN will be started today. 8. Vancomycin 1 gm IV x one dose on 11/30 and 3/30, she will be given a dose of 750 mg, Zofran as needed. LABORATORY DATA: White count 6.7, hemoglobin 10.6, hematocrit 33.5, platelets 135, ESR 49. Sodium 150, potassium 4.4, chloride 117, bicarb 29, BUN 37, creatinine 1.18. Glucose 274, calcium 8.8. CRP 2.21. Her sodium has been up to 156 on 11/30. Blood cultures drawn both at 8:44, both ER specimens are gram positive cocci in clusters. Even though one says a port, the port does not seem to have been accessed. Urine culture is pending. Repeat blood cultures on 11/30, two sets are pending. CT, abdomen and pelvis done on admission with IV contrast only showed a gastroesophageal junctional mass, unchanged from October 17. Thoracic esophagus is less dilated with mural thickening and fluid content, celiac lymph nodes less prominent, no new adenopathy or renal masses. There are gallstones in the gallbladder. There is air and a tiny amount of fluid around the jejunostomy tube with some adjacent inflammation of the anterior abdominal wall. PHYSICAL EXAMINATION: She is a frail female in no acute distress. She wants to go home. Temperature is 97.8. She has been afebrile for the past 24 hours. Pulse 106, respirations 18, blood pressure 115/56, O2 sat 99% on room air. Heart: Normal S1, S2, no murmurs appreciated, tachycardic. No rubs or gallops. Lungs: Clear. No wheezes, rales or rhonchi. Abdomen: Soft, tender in the left lower quadrant where the jejunostomy tube was and now there is a Manning catheter along the tunnel while waiting for a change of tubing. Surrounding the tube, there is erythema measuring about 6 x 5 cm around the tube with greenish bilious fluid draining from around the tubing and some black discolored liquid as well, not sure if that was from old blood. Extremities: No clubbing, cyanosis or edema, no calf tenderness. Head and ENT: Neck is supple, no JVD, no bruits, no adenopathy. Pupils equal, round and reactive. Oropharynx: Dry mucosa. [id number] on the right upper chest wall with a Tegaderm dressing, not accessed. IMPRESSION: This is a 70-year-old female who was admitted with dislodgement of her jejunostomy with abdominal wall cellulitis with induration around the tube and on CT finding some evidence of localized infection. She also had gram positive bacteremia although I am not convinced that these real blood cultures. It looks like they were drawn both peripherally, maybe from even one draw for the same time and the port has not been accessed as it is still covered by her dressing from chemotherapy. PLAN: Continue IV vancomycin until results of blood cultures from second set ordered that were ordered for today. If these are negative, then the patient does not need IV vancomycin. Continue with IV Aztreonam for mild abdominal wall cellulitis. If she has an infection around this abdominal wall if it is localized, then eventually the patient could be switched to some oral antibiotic once she is able. Her G-tube is functioning as currently she is not able to eat or drinking anything and she has to be tube fed. TPN will be started tonight and could be done through her [id number] for the next 48 hours until she has a new jejunostomy placed. Further antibiotic decisions will depend on repeat blood cultures and abdominal wall swelling.
--- NOTE | 2020-12-01 13:04 | IPNPDOC ---
Text Note Date of Service The patient was seen on 12/01/20. NOTE Subjective: Patient was seen and examined this morning at bedside. She expresses frustration with her inability to drink water. She denies any current pain around her PEG tube site. She states she has some nausea which is unchanged. Denies fevers or chills. Denies irritation or swelling around port. Objective: VITAL SIGNS: see below GENERAL: Alert, comfortable, in no acute distress HEENT: Normocephalic, atraumatic, sclera anicteric, moist mucous membranes CARDIOVASCULAR: Tachycardic. Regular rhythm, normal S1 and S2. No murmurs, rubs, or gallops RESPIRATORY: Clear to auscultation bilaterally with equal air entry bilaterally. No wheezing, rhonchi, or rales. ABDOMEN: Soft, nondistended, bowel sounds present. Catheter in place with some drainage of fluid into the surrounding bandages. No erythema, warmth, or tenderness around catheter insertion site. EXTREMITIES: No cyanosis or edema. Pulses 2+/4 in bilateral upper and lower extremities SKIN: No erythema or warmth around port in right upper chest with mild tenderness to palpation. NEUROLOGIC: No focal deficits appreciated PSYCHIATRIC: Mood and affect appropriate Assessment/Plan: 70 year old female with a history of gastroesophageal adenocarc inoma currently on chemo and radiation therapy, who presented after her PEG tube was dislodged, admitted for reinsertion of PEG tube, found to have blood cultures positive for gram positive cocci now on IV antibiotics # Dislodged feeding tube - Site does not appear to have any signs of infection. No leukocytosis or lactic acidosis - General surgery was called on consultation for reinsertion of J tube, suggested IR consult. - Manning catheter inserted to maintain patency of J tube site - Pt started on peripheral TPN for now until J tube can be placed - Resume tube feedings with Ensure (3 cans with infusion rate of 60cc/hour) once J tube is re-inserted - Scheduled with Dr. Petty/IR for J tube replacement on Monday as we did not have the correct tube in stock. # Bacteremia - two blood cultures positive for staph aureus, sensitivities pending - continue IV abx vancomycin and aztreonam day #2 - repeat cultures x2 pending - pt has port in place without any signs of surround infection - echocardiogram pending to evaluate for endocarditis - Infectious disease/Dr. Galan consulted, appreciate recommendations # Gastroesophageal adenocarcinoma - Dx 10/17/[address] Estrada - PET scan completed 11/09/2020 is without evidence of metastasis - Patient has started receiving radiation therapy with Dr. Ty on 11/23 - Patient follows with Dr. Conteh, has received first dose of chemotherapy on 11/26 with Carbotaxol # Hyperglycemia - likely 2/2 NIDDM2 and non-compliance with medications - Patient had stopped taking her metformin since October after her poor oral intake - Continue on ISS and low dose Levemir BID - nutrition with peripheral TPN until J tube is placed # Hypernatremia, improved - Likely 2/2 dehydration - monitor BMP daily # Acute kidney injury - likely 2/2 dehydration, resolved - Cr baseline of 1-1.2; Cr has returned to baseline - s/p 1 L of NS in the ER # HTN - BP well controlled - Will hold Atenolol pending J tube # DLP - Rosuvastatin on hold pending J tube # PAD s/p Aorto-femoral stent - ASA on hold pending J tube # Celiac artery high grade stenosis - ASA on hold pending J tube DVT prophylaxis: sc Heparin Disposition: pending IR for J tube replacement, repeat blood cultures, PT/OT eval Attending Attestation: Patient independently seen and examined. I have discussed in detail with the resident / student the findings and plan of treatment as documented by the resident / student. I agree with their findings and treatment plan and have edited their documentation. I will continue to follow the patient during this hospital stay. VS,Fishbone, I+O VS, Fishbone, I+O Laboratory Tests 11/30/20 13:08 12/01/20 05:33 Vital Signs Date Time Temp Pulse Resp B/P (MAP) Pulse Ox O2 Delivery O2 Flow Rate FiO2 12/01/20 11:32 98.9 88 18 125/58 (80) 97 Room Air I&O- Last 24 Hours up to 6 AM 12/01/20 06:00 Intake Total 550 ml Output Total 950 ml Balance -400 ml DIANA CHACKO D.O. Dec 01, 2020 13:04 THANH ZHOU MD Dec 02, 2020 09:20
[2020-12-01] MEDS ORDERED: ENOXAPARIN 40MG/0.4ML SYRINGE (J1650 PER 10MG) SC SCH (14:00)
[2020-12-01] MEDS: HEPARIN SOD (PORCINE) 5000UNITS/ML 1ML VIAL/SYRINGE SQ SCH ×2 (14:18→21:06)
[2020-12-01] MEDS: AMINO AC/ELECTROLYTE/DEX/CALC 1,000 ML IV SCH (16:04)
[2020-12-01] MEDS ORDERED: FAT EMULSION IV 20% 500 ML IV SCH (18:00)
[2020-12-01] MEDS ORDERED: EMLA CREAM 5GM TUBE (LIDOCAINE/PRILOCAINE) TOP ONE (18:30)
[2020-12-01] MEDS ORDERED: SODIUM CHLORIDE 0.9% INJ 10 ML SYR IV ONE ×2 (22:30→22:40)
[2020-12-02] MEDS: VANCOMYCIN HCL 750 MG, VIAL MATE ADAPTER 1 EACH in NS 250 ML IV SCH (05:44)
[2020-12-02 06:00] VITALS: BP 121/69
[2020-12-02 06:17] LABS: BASO % 0.3 % (0.0-1.0); EOS # 0.2 10^3/uL (0.0-0.5); EOS % 5.7 % (0.0-3.0); HEMOGLOBIN 8.7 g/dl (12.0-15.5); LYMPH # 0.2 10^3/uL (1.5-5.0); LYMPH % 7.4 % (24.0-44.0); MEAN CORPUSCULAR HGB CONC 32.2 g/dl (32.0-36.5); MONO # 0.1 10^3/uL (0.0-0.8); MONO % 3.7 % (2.0-8.0); NEUTROPHILS # 2.4 10^3/uL (1.5-8.5); NEUTROPHILS % 81.6 % (36.0-66.0); PLATELET COUNT, AUTOMATED 111 10^3/uL (150-450)
[2020-12-02] MEDS: HEPARIN SOD (PORCINE) 5000UNITS/ML 1ML VIAL/SYRINGE SQ SCH ×3 (06:42→22:00)
[2020-12-02] MEDS: HumaLOG INSULIN (NovoLOG) PER UNIT SC SCH ×4 (07:05→17:02)
[2020-12-02 07:18] LABS: BLOOD UREA NITROGEN 22 MG/DL (7-18); CALCIUM LEVEL 7.8 MG/DL (8.8-10.2); CARBON DIOXIDE LEVEL 26 MEQ/L (21-32); CHLORIDE LEVEL 115 MEQ/L (98-107); CREATININE FOR GFR 0.67 MG/DL (0.55-1.30); GLOMERULAR FILTRATION RATE > 60.0 (>39); GLUCOSE, FASTING 118 MG/DL (70-100); MAGNESIUM LEVEL 2.4 MG/DL (1.8-2.4); SODIUM LEVEL 147 MEQ/L (136-145); VANCOMYCIN LEVEL TROUGH 6.7 UG/ML (10.0-20.0)
[2020-12-02] MEDS: ROSUVASTATIN 10 MG TAB (CRESTOR) PEG SCH (08:31)
[2020-12-02] MEDS: ASPIRIN 81 MG CHEW TABLET PEG SCH (08:31)
[2020-12-02] MEDS: LEVEMIR (INSULIN DETEMIR) 1 UNITS/0.01ML SC SCH ×2 (08:32→22:46)
[2020-12-02] MEDS: atenoloL 25 MG TAB PEG SCH (08:32)
[2020-12-02] MEDS ORDERED: SODIUM CHLORIDE 0.9% INJ 10 ML SYR IV SCH (09:00)
--- NOTE | 2020-12-02 09:39 | IPN ---
PROGRESS NOTE DATE: 12/01/2020 SUBJECTIVE: Krystal seems frustrated today. She had multiple attempts for peripheral IV and she only has one access left. She is scheduled to have a PICC line tomorrow. She is on TPN while waiting for PICC line placement and jejunostomy tube to be replaced. She continues with gastric juice drainage from the jejunostomy tube surrounding the jejunostomy tube, which is causing irritation around the abdominal folds with irritation, redness, and pain. She has had no fever or chills. Her Infusaport was access in the emergency room and blood culture was obtained, which was positive for Staphylococcus aureus along with a peripheral blood culture also having Staphylococcus aureus with susceptibilities still pending. OBJECTIVE: GENERAL APPEARANCE: She is afebrile. She is frail and thin, but in no acute distress. VITAL SIGNS: Temperature is 99, pulse 87, respirations 18, blood pressure 132/60. O2 saturation 96% on room air. HEART: Normal S1, S2. No murmurs, rubs, or gallops. LUNGS: Clear. No wheezes, rales, or rhonchi. ABDOMEN: Tender in the epigastric area. Tender around the G-tube with surrounding green bilious secretions leaking around her jejunostomy tube causing redness all around the abdominal fold. There is mild tenderness and redness, as well as swelling around the J-tube site where now there is a Manning catheter. EXTREMITIES: No clubbing, cyanosis, or edema. Infusaport right upper chest with no redness or tenderness without access at this time. LABORATORY DATA: White count 3.6, hemoglobin 9.6, hematocrit 31.2, platelets 122,000, ESR 49. Sodium 146, potassium 4.1, chloride 114, bicarb 29, BUN 26, creatinine 0.89, glucose 230, calcium 8.1, magnesium 2.4, CRP 2.21. Vancomycin level is not done yet. MICROBIOLOGY: Blood cultures two sets one venous and one from the port are positive for Staphylococcus aureus with susceptibilities pending. On 11/30, two sets of blood cultures at 0724 and 0851 are negative. She had received one dose of vancomycin at that point. Urine culture was negative on 12/01. A port culture is done tonight and is pending. IMPRESSION: 1. Staphylococcus aureus bacteremia. Source could be from the abdominal wall cellulitis after the jejunostomy tube fell versus an Infusaport infection. The fact that she had a negative culture the next day makes the line infection less likely. A repeat blood culture from the Infusaport has been drawn tonight. I have discussed the case with her oncologist who does not want her Infusaport to be used for total parenteral nutrition (TPN) as it increases the risk of infection. 2. Dislodging of jejunostomy tube with secondary abdominal wall cellulitis. Aztreonam will be discontinued. Will continue only with IV vancomycin to cover for Staphylococcus aureus. If methicillin-resistant Staphylococcus aureus (MRSA), continue vancomycin. If methicillin-sensitive Staphylococcus aureus (MSSA), switch to IV cefazolin. 3. Gastroesophageal adenocarcinoma. Received chemotherapy on 11/26 and the patient is having decreasing white count and platelet count. Would anticipate some degree of neutropenia in the upcoming days. I have discussed this case with Dr. Liang today who did not want the Infusaport accessed, but agreed on having blood cultures done. 4. Dehydration and hypernatremia. The patient will be switched to TPN tomorrow with peripherally inserted central catheter (PICC) line use. PLAN: Discontinue IV aztreonam. Continue IV vancomycin at dose of 750 mg q. 24 hours. Check trough levels tomorrow. If MSSA deescalate to cefazolin 1 gram IV q. 8 hours and otherwise continue with vancomycin.
[2020-12-02] MEDS: ceFAZolin SOD 1 GM in D5W MINI-BAG PLUS 50 ML IV SCH ×2 (10:00→17:26)
[2020-12-02] MEDS: AMINO AC/ELECTROLYTE/DEX/CALC 1,000 ML IV SCH (11:00)
--- NOTE | 2020-12-02 11:41 | IPNPDOC ---
Text Note Date of Service The patient was seen on 12/02/20. NOTE Subjective: Patient was seen and examined this morning at bedside. She states she is feeling well, no new complaints. She expresses some frustration with waiting to have the J tube put in and is anxiously ready to return home. She states she is tired as it is difficult to sleep in the hospital. Objective: VITAL SIGNS: see below GENERAL: Alert, comfortable, in no acute distress HEENT: Normocephalic, atraumatic, sclera anicteric, moist mucous membranes CARDIOVASCULAR: Tachycardic. Regular rhythm, normal S1 and S2. No murmurs, rubs, or gallops RESPIRATORY: Clear to auscultation bilaterally with equal air entry bilaterally. No wheezing, rhonchi, or rales. ABDOMEN: Soft, nondistended, bowel sounds present. Catheter in place with some drainage of fluid into the surrounding bandages. No erythema, warmth, or tenderness around catheter insertion site. EXTREMITIES: No cyanosis or edema. Pulses 2+/4 in bilateral upper and lower extr emities SKIN: No erythema or warmth around port in right upper chest with mild tenderness to palpation. 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 No leukocytosis or lactic acidosis - General surgery was called on consultation for reinsertion of J tube, suggested IR consult. - Manning catheter inserted to maintain patency of J tube site - Pt started on peripheral TPN for now until J tube can be placed - Resume tube feedings with Ensure (3 cans with infusion rate of 60cc/hour) once J tube is re-inserted - Scheduled with Dr. Petty/IR for J tube replacement today. # Bacteremia - two blood cultures positive for staph aureus, sensitivities show MSSA - continue IV abx s/p vancomycin and aztreonam, switched to cefazolin day #3 - repeat cultures x2 negative at 24 hours. Port culture is pending. - pt has port in place without any signs of surround infection - echocardiogram report pending to evaluate for endocarditis - Infectious disease/Dr. Galan consulted, appreciate recommendations # Gastroesophageal adenocarcinoma - Dx 10/17/[address] Estrada - PET scan completed 11/09/2020 is without evidence of metastasis - Patient has started receiving radiation therapy with Dr. Ty on 11/23 - Patient follows with Dr. Conteh, has received first dose of chemotherapy on 11/26 with Carbotaxol # Hyperglycemia - likely 2/2 NIDDM2 and non-compliance with medications - Patient had stopped taking her metformin since October after her poor oral intake - Continue on ISS and low dose Levemir BID - nutrition with peripheral TPN until J tube is placed # Hypernatremia, improved - Likely 2/2 dehydration - monitor BMP daily # Acute kidney injury - likely 2/2 dehydration, resolved - Cr baseline of 1-1.2; Cr has returned to baseline - s/p 1 L of NS in the ER # HTN - BP well controlled - Will hold Atenolol pending J tube # DLP - Rosuvastatin on hold pending J tube # PAD s/p Aorto-femoral stent - ASA on hold pending J tube # Celiac artery high grade stenosis - ASA on hold pending J tube DVT prophylaxis: sc Heparin Disposition: pending IR for J tube replacement, repeat blood cultures, possible d/c on IV abx in the next 24 hours Attending Attestation: Patient independently seen and examined. I have discussed in detail with the resident / student the findings and plan of treatment as documented by the resident / student. I agree with their findings and treatment plan and have edited their documentati on. I will continue to follow the patient during this hospital stay. VS,Fishbone, I+O VS, Fishbone, I+O Laboratory Tests 12/02/20 05:48 Vital Signs Date Time Temp Pulse Resp B/P (MAP) Pulse Ox O2 Delivery O2 Flow Rate FiO2 12/02/20 06:00 98.4 99 19 121/69 (86) 96 Room Air I&O- Last 24 Hours up to 6 AM 12/02/20 06:00 Intake Total 850 ml Output Total 200 ml Balance 650 ml DIANA CHACKO D.O. Dec 02, 2020 10:04 THANH ZHOU MD Dec 04, 2020 07:02
--- NOTE | 2020-12-02 11:45 | ECHO ---
DATE OF PROCEDURE: 12/01/2020 Age: 70 Gender: Female Height: 160 cm Weight: 49 kg REFERRING PHYSICIAN: Abhishek Dan MD. INDICATION: Sepsis, COVID-19. MEASUREMENTS: 2D Measurements: Aortic root 2.7 cm Left atrium 2.3 cm Left ventricle diastole 4.0 cm Interventricular septum 1.13 cm Posterior wall 1.13 cm Inferior vena cava 0.9 cm (more than 50% respiratory variation) Doppler Measurements: No aortic regurgitation No aortic stenosis Aortic valve velocity 112 cm/s LVOT velocity 64.6 cm/s No mitral regurgitation No mitral stenosis Mitral E velocity 60.0 cm/s Mitral A velocity 88.7 cm/s Mitral deceleration time 180 msec Mild tricuspid regurgitation Estimated right ventricle systolic pressure 25-30 mmHg No pulmonic regurgitation Pulmonary artery acceleration time 108 msec MITRAL ANNULAR TISSUE DOPPLER E prime septal 4.0 cm/s DESCRIPTION: Rhythm was sinus. Image quality was fair. This was a 2D, M-mode, color flow Doppler, and pulsed wave Doppler examination including mitral annular tissue Doppler. CONCLUSIONS: 1. Normal left ventricle internal dimensions and wall thickness. Normal regional LV wall motion and wall thickening. Normal LV systolic function. LVEF 65% by visual estimate. Grade 1 LV diastolic dysfunction (impaired relaxation filling pattern). Normal left atrial size. 2. Mild aortic valve sclerosis of a 3-cusp aortic valve. No aortic regurgitation or stenosis. 3. Normal right ventricle size and systolic function. Suggestive of normal pulmonary artery systolic pressure and estimated right ventricle systolic pressure. Normal right atrial size. 4. Lipomatous hypertrophy of the interatrial septum. 5. No pericardial effusion. 6. Otherwise normal appearing echocardiogram Doppler findings. MTDD
[2020-12-02 14:00] VITALS: BP 122/71
[2020-12-02] MEDS ORDERED: EMLA CREAM 5GM TUBE (LIDOCAINE/PRILOCAINE) TOP ONE (16:00)
--- NOTE | 2020-12-02 16:41 | IPN ---
PROGRESS NOTE DATE: 12/01/2020 HISTORY: Patient was admitted for management of several problems. She has an obstructing esophageal cancer and had a jejunostomy tube placed back in October. This has come out on the morning of her admission. I placed an 18-Yor[place] Manning catheter into the hole from her jejunal tube just to keep the area open and have requested an interventional radiology replacement of her jejunostomy tube. I am told that this is now scheduled for December 02, as they await arrival of a feeding tube. Patient has been having some bilious drainage around the Manning catheter, which has increased. VITAL SIGNS: Patient as been afebrile with a pulse in the low 100s, down into the 90s. Her blood pressure is good. Intake and output: Patient is on intravenous (IV) fluid and yesterday had 600 mL of urine output recorded. Her urine output appears adequate today. PHYSICAL EXAMINATION: Patient has a large amount of bilious drainage on dressings over her abdomen. Examination of the tube site shows that some of the induration that she had at the time of her admission seems to have resolved. She had been draining what looked like an old hematoma through the tube site. Now she has some superficial excoriations over an area about 6-7 cm in diameter with some maceration of the surrounding skin. The abdomen is otherwise soft and without any significant tenderness. Labs are as noted in the medical record. She did grow Staphylococcus aureus out of blood cultures done at the time of her admission. IMPRESSION: Patient is awaiting replacement of her jejunal feeding tube. She is also on treatment for positive blood cultures. RECOMMENDATIONS: I spoke with the nurse about the drainage around her tube. I suspect that the balloon of her temporary Manning catheter may be occluding the lumen of her small bowel, leading to leakage of fluid from the more proximal bowel out around the tube. I have recommended that she place a colostomy bag over the site with the Manning catheter going into the bag so that we might better control the drainage around her tube. Hopefully replacement of her current tube with a different style will allow better flow past the tube. If this is a continuing problem, then repeat surgery may be appropriate. UNA
[2020-12-02] MEDS ORDERED: FAT EMULSION IV 20% 500 ML IV SCH (18:00)
[2020-12-02 22:00] VITALS: BP 132/57
[2020-12-02] MEDS: ceFAZolin SOD 2 GM in IV 1 EA IV SCH (22:47)
[2020-12-02] MEDS ORDERED: AMINO AC/ELECTROLYTE/DEX/CALC 2,000 ML IV SCH (23:25)
[2020-12-02] MEDS ORDERED: AMINO AC/ELECTROLYTE/DEX/CALC 1,000 ML IV SCH (23:30)
[2020-12-03 06:00] VITALS: BP 142/63
[2020-12-03] MEDS: ceFAZolin SOD 2 GM in IV 1 EA IV SCH ×3 (06:00→22:12)
[2020-12-03] MEDS: HEPARIN SOD (PORCINE) 5000UNITS/ML 1ML VIAL/SYRINGE SQ SCH ×4 (06:00→22:11)
[2020-12-03 06:50] LABS: BASO % 0.6 % (0.0-1.0); EOS # 0.1 10^3/uL (0.0-0.5); EOS % 3.8 % (0.0-3.0); HEMATOCRIT 28.2 % (36.0-47.0); HEMOGLOBIN 8.9 g/dl (12.0-15.5); LYMPH # 0.2 10^3/uL (1.5-5.0); MEAN CORPUSCULAR HEMOGLOBIN 28.7 pg (27.0-33.0); MEAN CORPUSCULAR HGB CONC 31.6 g/dl (32.0-36.5); MONO # 0.2 10^3/uL (0.0-0.8); MONO % 5.1 % (2.0-8.0); NEUTROPHILS # 2.6 10^3/uL (1.5-8.5); NEUTROPHILS % 81.6 % (36.0-66.0); PLATELET COUNT, AUTOMATED 110 10^3/uL (150-450); WHITE BLOOD COUNT 3.1 10^3/uL (4.0-10.0)
[2020-12-03 07:01] LABS: BLOOD UREA NITROGEN 19 MG/DL (7-18); CALCIUM LEVEL 8.3 MG/DL (8.8-10.2); CARBON DIOXIDE LEVEL 28 MEQ/L (21-32); CHLORIDE LEVEL 109 MEQ/L (98-107); CREATININE FOR GFR 0.72 MG/DL (0.55-1.30); GLOMERULAR FILTRATION RATE > 60.0 (>39); GLUCOSE, FASTING 157 MG/DL (70-100); MAGNESIUM LEVEL 2.4 MG/DL (1.8-2.4); SODIUM LEVEL 141 MEQ/L (136-145)
[2020-12-03] MEDS: HumaLOG INSULIN (NovoLOG) PER UNIT SC SCH ×4 (07:09→18:00)
[2020-12-03] MEDS: atenoloL 25 MG TAB PEG SCH (09:00)
[2020-12-03] MEDS: ROSUVASTATIN 10 MG TAB (CRESTOR) PEG SCH (09:00)
[2020-12-03] MEDS: ASPIRIN 81 MG CHEW TABLET PEG SCH (09:00)
[2020-12-03] MEDS ORDERED: LIDOCAINE 1% MDV 20ML VIAL As Ordered ONE ×2 (09:43→10:53)
--- NOTE | 2020-12-03 10:36 | IPNPDOC ---
Text Note Date of Service The patient was seen on 12/03/20. NOTE Subjective: Patient was seen and examined this morning at bedside. She states she continues to have trouble sleeping in the hospital. Otherwise she is feeling well. She had radiation treatment this morning. No new complaints. Objective: VITAL SIGNS: see below GENERAL: Alert, comfortable, in no acute distress HEENT: Normocephalic, atraumatic, sclera anicteric, moist mucous membranes CARDIOVASCULAR: Tachycardic. Regular rhythm, normal S1 and S2. No murmurs, rubs, or gallops RESPIRATORY: Clear to auscultation bilaterally with equal air entry bilaterally. No wheezing, rhonchi, or rales. ABDOMEN: Soft, nondistended, bowel sounds present. Catheter in place with some drainage of fluid into the surrounding bandages. No erythema, warmth, or tenderness around catheter insertion site. EXTREMITIES: No cyanosis or edema. Pulses 2+/4 in bilateral upper and lower extremities SKIN: No erythema or warmth around port in right upper chest with mild tenderness to palpation. 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 No leukocytosis or lactic acidosis - General surgery was called on consultation for reinsertion of J tube, suggested IR consult. - Manning catheter inserted to maintain patency of J tube site - Pt started on peripheral TPN for now until J tube can be placed - Resume tube feedings with Ensure (3 cans with infusion rate of 60cc/hour) once J tube is re-inserted - Scheduled with Dr. Petty/IR for J tube replacement today, rescheduled from yesterday # Bacteremia - two blood cultures positive for staph aureus, sensitivities show MSSA - continue IV abx s/p vancomycin and aztreonam, switched to cefazolin day #4 - repeat cultures x2 negative at 72 hours. Port culture positive for MSSA - Port may need to be removed with positive culture - TTE report reviewed, no findings suggestive of endocarditis - Infectious disease/Dr. Galan consulted, appreciate recommendations # Gastroesophageal adenocarcinoma - Dx 10/17/[address] Estrada - PET scan completed 11/09/2020 is without evidence of metastasis - Patient has started receiving radiation therapy with Dr. Ty on 11/23 - Patient follows with Dr. Conteh, has received first dose of chemotherapy on 11/26 with Carbotaxol # Hyperglycemia - likely 2/2 NIDDM2 and non-compliance with medications - Patient had stopped taking her metformin since October after her poor oral intake - Continue on ISS and low dose Levemir BID - nutrition with peripheral TPN until J tube is placed # Hypernatremia, improved - Likely 2/2 dehydration - monitor BMP daily # Acute kidney injury - likely 2/2 dehydration, resolved - Cr baseline of 1-1.2; Cr has returned to baseline - s/p 1 L of NS in the ER # HTN - BP well controlled - Will hold Atenolol pending J tube # DLP - Rosuvastatin on hold pending J tube # PAD s/p Aorto-femoral stent - ASA on hold pending J tube # Celiac artery high grade stenosis - ASA on hold pending J tube DVT prophylaxis: sc Heparin Disposition: pending IR for J tube replacement, possible d/c on IV abx in the next 24 hours Attending Attestation: Patient independently seen and examined. I have discussed in detail with the resident / student the findings and plan of treatment as documented by the resident / student. I agree with their findings and treatment plan and have edited their documentation. I will continue to follow the patient during this hospital stay. VS,Fishbone, I+O VS, Fishbone, I+O Laboratory Tests 12/03/20 06:21 Vital Signs Date Time Temp Pulse Resp B/P (MAP) Pulse Ox O2 Delivery O2 Flow Rate FiO2 12/03/20 06:00 97.9 87 8 142/63 (89) 94 Room Air I&O- Last 24 Hours up to 6 AM 12/03/20 06:00 Intake Total 560 ml Output Total 400 ml Balance 160 ml DIANA CHACKO D.O. Dec 03, 2020 10:36 THANH ZHOU MD Dec 04, 2020 07:21
[2020-12-03] MEDS ORDERED: ISOVUE-300 61% 50ML VIAL As Ordered ONE (11:16)
[2020-12-03] MEDS ORDERED: diphenhydrAMINE 50MG/ML VIAL (J1200) As Ordered ONE (11:18)
[2020-12-03] MEDS ORDERED: fentaNYL 100 MCG/2 ML INJECTION (J3010) As Ordered ONE (11:18)
[2020-12-03] MEDS ORDERED: MIDAZOLAM INJ 2MG/2ML VIAL (J2250 PER 1MG) As Ordered ONE (11:19)
[2020-12-03] MEDS ORDERED: SODIUM CHLORIDE 0.9% INJ 10 ML SYR IV PRN (14:10)
[2020-12-03] MEDS: LEVEMIR (INSULIN DETEMIR) 1 UNITS/0.01ML SC SCH ×2 (14:22→22:11)
[2020-12-03 15:31] VITALS: BP 113/55
--- NOTE | 2020-12-03 15:57 | IRPON ---
IR Postoperative Note Date Of Procedure: Dec 03, 2020 Time Of Procedure: 15:52 IR Postoperative Note IR Jejunostomy Catheter Exchange. Clinical Information:Surgically placed jejunostomy catheter 2 months ago. Fell out. Replaced by Manning catheter with CT information. Referred for exchange to regular J-tube. Jejunostomy site has an ostomy bag over it with surrounding skin breakage. Physician: Dr. Petty. Procedure: The patient was advised of the benefits, risks, and alternatives of the procedure and informed consent was obtained. A time out was performed with verification of the patient's name, MRN, site of procedure, and type of procedure to be performed. The patient was positioned in the supine position on the angiographic table. The site was prepped and draped in the usual sterile fashion. Moderate sedation was performed by the physician including the presence of an independent trained RN who assisted in monitoring the patient's level of consciousness and physiological status. Following the administration of Fentanyl and Versed, the physician spent 45 minutes of continuous [id number] time with the patient. A process control board operator radiograph reveals a Manning catheter and surgical clips in the mid abdomen. The port of the catheter were injected with contrast demonstrating opacification of the jejunum. A [place] wire was advanced through the catheter into the jejunum under fluoroscopic guidance. The retention balloon was deflated and the catheter was removed over the wire A new 18 CORY jejunostomy catheter was advanced over the wire into the jejunum. The retention balloon was inflated and then retracted against the jejunal wall. Appropriate positioning of the catheter was confirmed with injection of contrast through port. The retention disc was approximated to the anterior torso. The patient tolerated the procedure well and was returned to the PRU in stable condition. EBL: < 5 mL. Complications: None. Conclusion: Successful exchange of Jejunostomy Manning catheter for 18 [place] CORY jejunostomy catheter. The catheter is ready for immediate use.Patient to follow-up with surgery. Thank you for this referral RICHARD PETTY MD Dec 03, 2020 15:57
--- NOTE | 2020-12-03 17:35 | REP ---
PROCEDURE NAME: PICC LINE INSERTION W/SITERITE CLINICAL INFORMATION: POOR ACCESS. COMPARISON: None. PROCEDURE DESCRIPTION: The procedure was performed by GIO Osborn, under the direct supervision of Dr. Escobedo. The risks and benefits of the procedure were explained to the patient and an informed consent was obtained both verbally and written. Directly prior to the start of the procedure a formal time-out was completed in the procedure room. The left medial brachial vein was localized using ultrasound guidance. The skin was prepped and draped in sterile fashion. Two mL of 1% lidocaine 10 mg/mL was used as a local anesthetic. Using ultrasound guidance the left medial brachial vein was cannulated, and a 0.018 guidewire was inserted and advanced to the level of SVC using fluoroscopic guidance. The needle was removed and a 5.5 American dilator and peel-away sheath was inserted over the guidewire. A 5.5 American dual lumen catheter was cut to a length of 37 cm. The dilator was removed and the catheter was inserted over the guidewire with the tip ending at the level of the SVC. The peel-away sheath was removed and the catheter was flushed with heparinized saline as per hospital protocol. The catheter was affixed to the skin and a sterile dressing was applied. The patient tolerated the procedure well and there were no immediate complications. CONCLUSION: PICC line insertion into the left medial brachial vein. 0.2 minutes of fluoroscopy time was utilized for this procedure. Some fluoroscopic images are performed with last image hold technology. These images require no additional radiation. <Electronically signed by Anabela Padilla > 12/03/20 0429 <Electronically signed by Mir Escobedo > 12/03/20 [id number]
[2020-12-03] MEDS ORDERED: AMINO AC/ELECTROLYTE/DEX/CALC 2,000 ML IV SCH (18:00)
[2020-12-03] MEDS ORDERED: FAT EMULSION IV 20% 500 ML IV SCH (18:00)
[2020-12-03] MEDS: SODIUM CHLORIDE 0.9% INJ 10 ML SYR IV SCH (18:40)
[2020-12-03] MEDS ORDERED: ENTER DRUG NAME HERE (PATIENT'S OWN MED) TOP SCH (19:55)
[2020-12-03] MEDS ORDERED: EMLA CREAM 5GM TUBE (LIDOCAINE/PRILOCAINE) TOP SCH (20:10)
[2020-12-03 22:00] VITALS: BP 116/55
[2020-12-04] MEDS: HumaLOG INSULIN (NovoLOG) PER UNIT SC SCH ×4 (00:55→18:10)
[2020-12-04 06:00] VITALS: BP 113/55
[2020-12-04] MEDS: HEPARIN SOD (PORCINE) 5000UNITS/ML 1ML VIAL/SYRINGE SQ SCH ×3 (06:16→21:36)
[2020-12-04] MEDS: ceFAZolin SOD 2 GM in IV 1 EA IV SCH ×3 (06:16→21:37)
[2020-12-04] MEDS: SODIUM CHLORIDE 0.9% INJ 10 ML SYR IV SCH ×2 (06:21→18:11)
[2020-12-04 06:39] LABS: EOS # 0.1 10^3/uL (0.0-0.5); EOS % 3.5 % (0.0-3.0); HEMATOCRIT 25.7 % (36.0-47.0); HEMOGLOBIN 8.4 g/dl (12.0-15.5); LYMPH # 0.2 10^3/uL (1.5-5.0); LYMPH % 5.9 % (24.0-44.0); MEAN CORPUSCULAR HEMOGLOBIN 29.1 pg (27.0-33.0); MEAN CORPUSCULAR HGB CONC 32.7 g/dl (32.0-36.5); MEAN CORPUSCULAR VOLUME 88.9 fl (80.0-96.0); MONO # 0.3 10^3/uL (0.0-0.8); MONO % 7.4 % (2.0-8.0); NEUTROPHILS # 2.7 10^3/uL (1.5-8.5); NEUTROPHILS % 80.8 % (36.0-66.0); PLATELET COUNT, AUTOMATED 115 10^3/uL (150-450); RED BLOOD COUNT 2.89 10^6/uL (4.00-5.40); WHITE BLOOD COUNT 3.4 10^3/uL (4.0-10.0)
[2020-12-04 07:06] LABS: ERYTHROCYTE SEDIMENTATION RATE 73 mm/hr (0-30)
[2020-12-04 07:25] LABS: BLOOD UREA NITROGEN 18 MG/DL (7-18); C REACTIVE PROTEIN QUANTITATIV 5.66 MG/DL (0.00-0.30); CALCIUM LEVEL 7.6 MG/DL (8.8-10.2); CARBON DIOXIDE LEVEL 24 MEQ/L (21-32); CHLORIDE LEVEL 111 MEQ/L (98-107); CREATININE FOR GFR 0.63 MG/DL (0.55-1.30); GLOMERULAR FILTRATION RATE > 60.0 (>39); GLUCOSE, FASTING 139 MG/DL (70-100); MAGNESIUM LEVEL 2.1 MG/DL (1.8-2.4); POTASSIUM SERUM 4.2 MEQ/L (3.5-5.1); SODIUM LEVEL 140 MEQ/L (136-145)
[2020-12-04] MEDS: ROSUVASTATIN 10 MG TAB (CRESTOR) PEG SCH (08:41)
[2020-12-04] MEDS: atenoloL 25 MG TAB PEG SCH (08:41)
[2020-12-04] MEDS: ASPIRIN 81 MG CHEW TABLET PEG SCH (08:41)
[2020-12-04] MEDS: LEVEMIR (INSULIN DETEMIR) 1 UNITS/0.01ML SC SCH ×2 (08:41→21:37)
--- NOTE | 2020-12-04 09:52 | IPN ---
PROGRESS NOTE DATE: 12/03/2020 Mrs. Olivas is in good spirits today. Her jejunostomy tube was replaced and her peripherally inserted central catheter (PICC) line was placed. She is currently on total parenteral nutrition (TPN). She has had no fever or chills. She has epigastric pain if she tries to eat anything and therefore has not been able to even drink. She had been supporting herself with Ensure, three cans through the night, as only oral intake. She continues with radiation treatment with Dr. Webber during her hospital stay. PHYSICAL EXAMINATION: Alert, oriented, in no acute distress. Heart: Tachycardic, normal S1, S2, no murmurs. Lungs: Clear, no wheezes, rales, or rhonchi. Abdomen: Soft, mildly tender around the jejunostomy tube that was replaced, erythema around the tube has decreased and there is no drainage. Extremities: No clubbing, cyanosis, or edema. +2 dorsalis pedis pulses. Skin: Erythema around jejunostomy tube. Right upper chest [id number]. IMPRESSION: 1. Methicillin-sensitive Staphylococcus aureus (MSSA) bacteremia most likely related to line infection as the blood culture was persistently positive from the port and negative peripherally. She is currently on cefazolin with negative culture on 12/02/2020. The patient will need 2 weeks of IV antibiotics through her port. End of treatment would be 12/16/2020. 2. Dislodged jejunostomy tube was replaced and doing well. 3. Protein calorie malnutrition due to severe dysphagia. Patient is currently receiving total parenteral nutrition (TPN). Albumin is 3.0. 4. Gastroesophageal adenocarcinoma. Patient receiving chemotherapy and radiation. PLAN: Case has been discussed with Dr. Conteh regarding accessing her Cifsma-e-Wuai for IV antibiotics. The patient will need cefazolin 2 grams every 8 hours for a total of 14 days. Consult patient and family services (PFS) for home IV antibiotics through [facility]. Repeat blood cultures will have to be done through the port once IV antibiotics are done to make sure that the port has cleared as there is a high rate of failure of line infections when the pathogens is Staphylococcus aureus. At this point, chemotherapy needs to be on hold until she is done with IV antibiotics. Case was also discussed with Giovanni Lopez, who is the resident on the case.
--- NOTE | 2020-12-04 13:15 | REPVR ---
PROCEDURE INFORMATION: Exam: CT Orbits Without Contrast Exam date and time: 12/04/2020 12:54 PM Age: 70 years old Clinical indication: Eye pain; Left; Patient HX: Ordered w/ iv. . . . Unable to use picc and port . . . peripheral line was checked by IR nurse. . . IR nurse determined PT needed new iv. . PT allowed 1 attempt. . It was unsuccessful. . . . Exam done w/o iv contrast due to no iv access; Additional info: Eye pain, change in vision TECHNIQUE: Imaging protocol: Computed tomography images of the orbits without contrast. Radiation optimization: All CT scans at this facility use at least one of these dose optimization techniques: automated exposure control; mA and/or kV adjustment per patient size (includes targeted exams where dose is matched to clinical indication); or iterative reconstruction. COMPARISON: No relevant prior studies available. FINDINGS: Orbital cavity: There have been bilateral intraocular lens replacements likely related to cataract surgery. No exophthalmos. Ocular globes are intact. Symmetric appearance of extra-ocular muscle complexes. No evidence of orbital mass. Paranasal sinuses: Paranasal sinuses are clear. Mastoid air cells: Mastoid air cells and middle ear cavities are well developed and well aerated. Bones/joints: No acute fracture. Soft tissues: No evidence soft tissue fluid collection or abscess. IMPRESSION: Unremarkable orbits. Electronically signed by: Karla Alvarado On 12/04/2020 13:16:00 PM
--- NOTE | 2020-12-04 13:45 | IPNPDOC ---
Text Note Date of Service The patient was seen on 12/04/20. NOTE Subjective: Patient was seen and examined this morning at bedside. She feels optimistic with the J tube back in place. She denies pain the abdomen, but notes some leaking around the J tube. She also reports some changes in vision and pain in her left eye. She states it hurts her eye to look in different directions. She notes some sensitivity to light in the left eye. She also reports a mesh like pattern across her vision, only in the left eye. She states this started two days ago when she was started on TPN. Objective: VITAL SIGNS: see below GENERAL: Alert, comfortable, in no acute distress HEENT: Normocephalic, atraumatic, Pain in left eye with extraocular movement in all directions. EOMI. PEERLA. sclera anicteric, moist mucous membranes CARDIOVASCULAR: Tachycardic. Regular rhythm, normal S1 and S2. No murmurs, rubs, or gallops RESPIRATORY: Clear to auscultation bilaterally with equal air entry bilaterally. No wheezing, rhonchi, or rales. ABDOMEN: Soft, nondistended, bowel sounds present. J tube in place with some irritation of the skin around the site of insertion EXTREMITIES: No cyanosis or edema. Pulses 2+/4 in bilateral upper and lower extremities SKIN: No erythema or warmth around port in right upper chest with mild tenderness to palpation. NEUROLOGIC: Visual field deficits in the left eye, all four quadrants. No additional focal deficits appreciated PSYCHIATRIC: Mood and affect appropriate Assessment/Plan: 70 year old female with a history of gastroesophageal adenocarcinoma currently on chemo and radiation therapy, who presented after her PEG tube was dislodged, admitted for reinsertion of PEG tube, found to have blood cultures positive for MSSA, on IV antibiotics # Dislodged feeding tube - Site does not appear to have any signs of infection. No leukocytosis or lactic acidosis - General surgery was called on consultation for reinsertion of J tube, suggested IR consult. - Consulted Dr. Petty/IR for J tube replacement, completed on 12/03/20 - s/p garrett catheter inserted to maintain patency of J tube site - Resume tube feedings with Ensure (3 cans with infusion rate of 60cc/hour) - leaking around the tube today, balloon size adjusted by Dr. Aceves (removed 2mL, leaving 5mL inside the balloon). May need further adjustment if leaking continues. # Bacteremia - two blood cultures positive for staph aureus, sensitivities show MSSA - continue IV abx s/p vancomycin and aztreonam, switched to cefazolin day #5 - repeat peripheral blood cultures x2 negative at 72 hours. Port culture x2 positive for MSSA - Port may need to be removed with positive culture, second repeat pending - TTE report reviewed, no findings suggestive of endocarditis - Infectious disease/Dr. Galan consulted, appreciate recommendations # Vision change and left eye pain - started when TPN was started. Unlikely to be a side effect. TPN is discontinued today now that she has functioning J tube in place - check CT orbits - consider ophthalmology consult if not improve, she may need outpatient referral. # Gastroesophageal adenocarcinoma - Dx 10/17/[address] Estrada - PET scan completed 11/09/2020 is without evidence of metastasis - Patient has started receiving radiation therapy with Dr. Ty on 11/23 - Patient follows with Dr. Conteh, has received first dose of chemotherapy on 11/26 with Carbotaxol # Hyperglycemia - likely 2/2 NIDDM2 and non-compliance with medications - Patient had stopped taking her metformin since October after her poor oral intake - Continue on ISS and low dose Levemir BID - restart J tube feeds as above, may need to adjust insulin regimen # Hypernatremia, improved - Likely 2/2 dehydration - monitor BMP daily # Acute kidney injury - likely 2/2 dehydration, resolved - Cr baseline of 1-1.2; Cr has returned to baseline - s/p 1 L of NS in the ER # HTN - BP well controlled - continue home Atenolol # DLP - continue home Rosuvastatin # PAD s/p Aorto-femoral stent - continue home ASA # Celiac artery high grade stenosis - continue home ASA DVT prophylaxis: sc Heparin Disposition: pending repeat blood culture results, may need infusaport removal, expect dc home when clinically improved Attending Attestation: Patient independently seen and examined. I have discussed in detail with the r esident / student the findings and plan of treatment as documented by the resident / student. I agree with their findings and treatment plan and have edited their documentation. I will continue to follow the patient during this hospital stay. Steve LIN, I+O VS, Fishbone, I+O Laboratory Tests 12/04/20 06:17 Vital Signs Date Time Temp Pulse Resp B/P (MAP) Pulse Ox O2 Delivery O2 Flow Rate FiO2 12/04/20 08:41 106 113/55 12/04/20 06:00 98.8 20 96 Room Air 12/03/20 12:05 2 I&O- Last 24 Hours up to 6 AM 12/04/20 06:00 Intake Total 50 ml Output Total 400 ml Balance -350 ml DIANA CHACKO D.O. Dec 04, 2020 13:45 THANH ZHOU MD Dec 06, 2020 11:47
[2020-12-04 14:00] VITALS: BP 144/63
--- NOTE | 2020-12-04 15:53 | IPN ---
PROGRESS NOTE DATE: 12/04/2020 HISTORY: Patient was admitted back on November 29, 2020 after her jejunostomy tube (J-tube) was found to be dislodged. On admission, she had some significant inflammatory changes around her J-tube site that were consistent with drainage of an old hematoma. Her blood cultures actually grew gram-positive cocci, which turned out to be Staphylococcus aureus. She has been receiving antibiotic coverage. She had her J-tube replaced by Dr. Petty yesterday. The nurses do report today that she has had some bilious drainage around her new jejunal tube. Vital signs show that patient has been afebrile over the past 24 hours. Her pulse is in the 90-106 range. Her blood pressure is good and her room air oxygen saturation is fine. Intake and output show that yesterday she has no intake recorded and 400 mL of urine output noted. She is on some parenteral nutrition currently. PHYSICAL EXAMINATION: Shows that her new J-tube is in place in the left upper quadrant. The inflammation at her tube site seems to have diminished significantly. The abdomen is otherwise benign. I tested the balloon volume and found the balloon to contain 7 mL of fluid and I reduced this to about 5. LABORATORY STUDIES: Laboratory studies today show a white count of 3, hemoglobin 8, hematocrit 26 and her platelet count is 115,000. Her chemistry profile shows sodium 140, potassium 4.2, chloride 111, CO2 24, BUN 18, creatinine 0.6, and a glucose of 139. C-reactive protein is 5.66. IMPRESSION: Patient now has her new J-tube in place. She has been having some drainage around the tube, both with the temporary Manning catheter to keep the tract open and with her new tube. RECOMMENDATIONS: My experience with J-tubes has been that the drainage around the tube is usually because the balloon of the device is occluding the lumen of the small bowel and promoting drainage around the tube. If she continues to have drainage around the tube, I would recommend diminishing the amount of fluid in the retention balloon to about 3 mL. If there are further problems, feel free to contact the general surgery service. UNA
[2020-12-04 20:21] VITALS: BP 140/62
[2020-12-05] VITALS (7 sets, daily range): BP systolic 94–142; BP diastolic 46–62
[2020-12-05] MEDS: SODIUM CHLORIDE 0.9% INJ 10 ML SYR IV SCH ×2 (05:52→18:58)
[2020-12-05] MEDS: ceFAZolin SOD 2 GM in IV 1 EA IV SCH ×3 (05:53→21:53)
[2020-12-05] MEDS: HEPARIN SOD (PORCINE) 5000UNITS/ML 1ML VIAL/SYRINGE SQ SCH ×3 (05:53→21:53)
[2020-12-05] MEDS: HumaLOG INSULIN (NovoLOG) PER UNIT SC SCH ×4 (06:00→18:00)
[2020-12-05 07:21] LABS: BASO % 0.3 % (0.0-1.0); EOS # 0.1 10^3/uL (0.0-0.5); EOS % 1.9 % (0.0-3.0); HEMATOCRIT 27.5 % (36.0-47.0); HEMOGLOBIN 8.7 g/dl (12.0-15.5); LYMPH # 0.2 10^3/uL (1.5-5.0); LYMPH % 6.8 % (24.0-44.0); MEAN CORPUSCULAR HEMOGLOBIN 28.6 pg (27.0-33.0); MEAN CORPUSCULAR HGB CONC 31.6 g/dl (32.0-36.5); MEAN CORPUSCULAR VOLUME 90.5 fl (80.0-96.0); MONO # 0.3 10^3/uL (0.0-0.8); MONO % 10.2 % (2.0-8.0); NEUTROPHILS # 2.5 10^3/uL (1.5-8.5); NEUTROPHILS % 78.3 % (36.0-66.0); PLATELET COUNT, AUTOMATED 120 10^3/uL (150-450); RED BLOOD COUNT 3.04 10^6/uL (4.00-5.40); WHITE BLOOD COUNT 3.2 10^3/uL (4.0-10.0)
[2020-12-05 07:37] LABS: BLOOD UREA NITROGEN 17 MG/DL (7-18); CARBON DIOXIDE LEVEL 25 MEQ/L (21-32); CHLORIDE LEVEL 107 MEQ/L (98-107); CREATININE FOR GFR 0.74 MG/DL (0.55-1.30); GLOMERULAR FILTRATION RATE > 60.0 (>39); GLUCOSE, FASTING 87 MG/DL (70-100); POTASSIUM SERUM 3.7 MEQ/L (3.5-5.1); SODIUM LEVEL 140 MEQ/L (136-145)
[2020-12-05] MEDS: LEVEMIR (INSULIN DETEMIR) 1 UNITS/0.01ML SC SCH ×2 (09:00→21:54)
[2020-12-05] MEDS: ASPIRIN 81 MG CHEW TABLET PEG SCH (10:08)
[2020-12-05] MEDS: atenoloL 25 MG TAB PEG SCH (10:09)
[2020-12-05] MEDS: ROSUVASTATIN 10 MG TAB (CRESTOR) PEG SCH (10:09)
--- NOTE | 2020-12-05 11:07 | IPNPDOC ---
Text Note Date of Service The patient was seen on 12/05/20. NOTE Subjective: Patient was seen and examined this morning at bedside. She denies any pain in her abdomen. She states the leaking around her J tube has improved. She co ntinues to have some pain with movement of her left eye. She notes this is worse with horizontal movement. Objective: VITAL SIGNS: see below GENERAL: Alert, comfortable, in no acute distress HEENT: Normocephalic, atraumatic, Pain in left eye with extraocular movement in the horizontal field. No swelling, erythema, or drainage around the eye. Conjunctiva clear. EOMI. PEERLA. sclera anicteric. moist mucous membranes CARDIOVASCULAR: Tachycardic. Regular rhythm, normal S1 and S2. No murmurs, rubs, or gallops RESPIRATORY: Clear to auscultation bilaterally with equal air entry bilaterally. No wheezing, rhonchi, or rales. ABDOMEN: Soft, nondistended, bowel sounds present. J tube in place with some irritation of the skin around the site of insertion EXTREMITIES: No cyanosis or edema. Pulses 2+/4 in bilateral upper and lower extremities SKIN: No erythema or warmth around port in right upper chest with mild tenderness to palpation. NEUROLOGIC: Visual field deficits in the left eye, all four quadrants. No additional focal deficits appreciated PSYCHIATRIC: Mood and affect appropriate Assessment/Plan: 70 year old female with a history of gastroesophageal adenocarcinoma currently on chemo and radiation therapy, who presented after her PEG tube was dislodged, admitted for reinsertion of J tube, found to have blood cultures positive for MSSA, on IV antibiotics # Dislodged feeding tube - Site does not appear to have any signs of infection. No leukocytosis or lactic acidosis - General surgery was called on consultation for reinsertion of J tube, suggested IR consult. - Consulted Dr. Petty/IR for J tube replacement, completed on 12/03/20 - s/p garrett catheter inserted to maintain patency of J tube site - Resume tube feedings with Ensure (3 cans daily with infusion rate of 60cc/hour) - balloon size adjusted by Dr. Aceves to prevent leaking(removed 2mL, leaving 5mL inside the balloon) # Bacteremia with positive port cultures - two blood cultures positive for staph aureus, sensitivities show MSSA - continue IV abx s/p vancomycin and aztreonam, switched to cefazolin day #6 - repeat peripheral blood cultures x2 negative at 72 hours. Port culture x2 positive for MSSA. Repeat port culture pending. - Port may need to be removed if the cultures continue to grow MSSA. - TTE report reviewed, no findings suggestive of endocarditis - Infectious disease/Dr. Galan consulted, appreciate recommendations # Vision change and left eye pain - started when TPN was started. Unlikely to be a side effect. TPN is discontinued today now that she has functioning J tube in place - CT orbits showed no acute findings. - plan for outpatient referral to ophthalmology. # Gastroesophageal adenocarcinoma - Dx 10/17/[address] Estrada - PET scan completed 11/09/2020 is without evidence of metastasis - Patient has started receiving radiation therapy with Dr. Ty on 11/23 - Patient follows with Dr. Conteh, has received first dose of chemotherapy on 11/26 with Carbotaxol # Hyperglycemia - likely 2/2 NIDDM2 and non-compliance with medications - Patient had stopped taking her metformin since October after her poor oral intake - Continue on ISS and low dose Levemir BID - restart J tube feeds as above # Hypernatremia, resolved - Likely 2/2 dehydration - monitor BMP daily # Acute kidney injury - likely 2/2 dehydration, resolved - Cr baseline of 1-1.2; Cr has returned to baseline - s/p 1 L of NS in the ER # HTN - BP well controlled - continue home Atenolol # DLP - continue home Rosuvastatin # PAD s/p Aorto-femoral stent - continue home ASA # Celiac artery high grade stenosis - continue home ASA DVT prophylaxis: sc Heparin Disposition: pending repeat blood culture results, may need infusaport removal, expect dc home when clinically improved Attending Attestation: Patient independently seen and examined. I have discussed in detail with the resident / student the findings and plan of treatment as documented by the resident / student. I agree with their findings and treatment plan and have edited their documentation. I will continue to follow the patient during this hospital stay. VS,Fishbone, I+O VS, Fishbone, I+O Laboratory Tests 12/05/20 06:58 Vital Signs Date Time Temp Pulse Resp B/P (MAP) Pulse Ox O2 Delivery O2 Flow Rate FiO2 4/3/21 10:09 94 142/62 12/05/20 06:00 97.5 18 96 Room Air 12/03/20 12:05 2 I&O- Last 24 Hours up to 6 AM 12/05/20 06:00 Intake Total 2611 ml Output Total 200 ml Balance 2411 ml DIANA CHACKO D.O. Dec 05, 2020 11:07 THANH ZHOU MD Dec 06, 2020 11:57
[2020-12-05] MEDS ORDERED: NS 500 ML IV ONE (15:00)
[2020-12-05] MEDS ORDERED: SODIUM CHLORIDE 0.9% INJ 10 ML SYR IV PRN (18:15)
[2020-12-06] MEDS: HumaLOG INSULIN (NovoLOG) PER UNIT SC SCH ×4 (00:57→18:29)
[2020-12-06 06:00] VITALS: BP 111/57
[2020-12-06] MEDS: ceFAZolin SOD 2 GM in IV 1 EA IV SCH ×3 (06:54→21:35)
[2020-12-06] MEDS: HEPARIN SOD (PORCINE) 5000UNITS/ML 1ML VIAL/SYRINGE SQ SCH ×3 (06:54→21:35)
[2020-12-06] MEDS: SODIUM CHLORIDE 0.9% INJ 10 ML SYR IV SCH ×3 (06:55→18:29)
[2020-12-06 06:58] LABS: BASO % 0.3 % (0.0-1.0); EOS # 0.1 10^3/uL (0.0-0.5); EOS % 1.9 % (0.0-3.0); HEMATOCRIT 24.8 % (36.0-47.0); LYMPH # 0.2 10^3/uL (1.5-5.0); LYMPH % 5.5 % (24.0-44.0); MEAN CORPUSCULAR HEMOGLOBIN 29.4 pg (27.0-33.0); MEAN CORPUSCULAR HGB CONC 32.3 g/dl (32.0-36.5); MEAN CORPUSCULAR VOLUME 91.2 fl (80.0-96.0); MONO # 0.3 10^3/uL (0.0-0.8); MONO % 9.7 % (2.0-8.0); NEUTROPHILS # 2.5 10^3/uL (1.5-8.5); NEUTROPHILS % 80.7 % (36.0-66.0); PLATELET COUNT, AUTOMATED 132 10^3/uL (150-450); RED BLOOD COUNT 2.72 10^6/uL (4.00-5.40); WHITE BLOOD COUNT 3.1 10^3/uL (4.0-10.0)
[2020-12-06 07:43] LABS: BLOOD UREA NITROGEN 14 MG/DL (7-18); CALCIUM LEVEL 7.4 MG/DL (8.8-10.2); CARBON DIOXIDE LEVEL 27 MEQ/L (21-32); CHLORIDE LEVEL 110 MEQ/L (98-107); CREATININE FOR GFR 0.57 MG/DL (0.55-1.30); GLOMERULAR FILTRATION RATE > 60.0 (>39); GLUCOSE, FASTING 111 MG/DL (70-100); MAGNESIUM LEVEL 2.2 MG/DL (1.8-2.4); POTASSIUM SERUM 4.1 MEQ/L (3.5-5.1); SODIUM LEVEL 142 MEQ/L (136-145)
[2020-12-06] MEDS: atenoloL 25 MG TAB PEG SCH (09:00)
[2020-12-06] MEDS: ROSUVASTATIN 10 MG TAB (CRESTOR) PEG SCH (09:11)
[2020-12-06] MEDS: ASPIRIN 81 MG CHEW TABLET PEG SCH (09:11)
[2020-12-06] MEDS: LEVEMIR (INSULIN DETEMIR) 1 UNITS/0.01ML SC SCH ×2 (09:12→21:00)
--- NOTE | 2020-12-06 11:23 | IPNPDOC ---
Text Note Date of Service The patient was seen on 12/06/20. NOTE Subjective: Patient seen and examined at bedside. No acute overnight events reported. No new medical complaints this morning. She is anxious to return home. There was concern regarding her feeding times, however she states she is OK with her feeding times as scheduled. Objective: VITAL SIGNS: see below GENERAL: Alert, comfortable, in no acute distress HEENT: NC/AT, EOMI, edentulous CARDIOVASCULAR: Tachycardic. Regular rhythm, normal S1 and S2. No murmurs, rubs, or gallops RESPIRATORY: Clear to auscultation bilaterally with equal air entry bilaterally. No wheezing, rhonchi, or rales. ABDOMEN: Soft, nondistended, bowel sounds present. J tube in place with some irritation of the skin around the site of insertion EXTREMITIES: No cyanosis or edema. Pulses 2+/4 in bilateral upper and lower extremities SKIN: No erythema or warmth around port in right upper chest with mild tenderness to palpation. 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 No leukocytosis or lactic acidosis - General surgery was called on consultation for reinsertion of J tube, suggested IR consult. - Consulted Dr. Petty/IR for J tube replacement, completed on 12/03/20 - s/p garrett catheter inserted to maintain patency of J tube site - Resumed tube feedings with Ensure (3 cans daily with infusion rate of 60cc/hour) - balloon size adjusted by Dr. Aceves to prevent leaking(removed 2mL, leaving 5mL inside the balloon) # Bacteremia with positive port cultures - two blood cultures positive for staph aureus, sensitivities show MSSA - continue IV abx s/p vancomycin and aztreonam, switched to cefazolin day #6 - repeat peripheral blood cultures x2 negative at 72 hours. Port culture x2 positive for MSSA. Repeat port culture pending. - Port may need to be removed if the cultures continue to grow MSSA. - TTE report reviewed, no findings suggestive of endocarditis - Infectious disease/Dr. Galan consulted, appreciate recommendations # Vision change and left eye pain - resolved - started when TPN was started. Unlikely to be a side effect. TPN is discontinued today now that she has functioning J tube in place - CT orbits showed no acute findings. - plan for outpatient referral to ophthalmology. # Gastroesophageal adenocarcinoma - Dx 10/17/[address] Estrada - PET scan completed 11/09/2020 is without evidence of metastasis - Patient has started receiving radiation therapy with Dr. Ty on 11/23 - Patient follows with Dr. Conteh, has received first dose of chemotherapy on 11/26 with Carbotaxol # Hyperglycemia - likely 2/2 NIDDM2 and non-compliance with medications - Patient had stopped taking her metformin since October after her poor oral intake - Continue on ISS and low dose Levemir BID - restart J tube feeds as above # Hypernatremia, resolved - Likely 2/2 dehydration - monitor BMP daily # Acute kidney injury - resolved - likely 2/2 dehydration, resolved - Cr baseline of 1-1.2; Cr has returned to baseline - s/p 1 L of NS in the ER # HTN - BP well controlled - continue home Atenolol # DLP - continue home Rosuvastatin # PAD s/p Aorto-femoral stent - continue home ASA # Celiac artery high grade stenosis - continue home ASA DVT prophylaxis: sc Heparin Disposition: pending repeat blood culture results, may need infusaport removal, expect dc home when clinically improved VS,Fishbone, I+O VS, Fishbone, I+O Laboratory Tests 12/06/20 06:43 Vital Signs Date Time Temp Pulse Resp B/P (MAP) Pulse Ox O2 Delivery O2 Flow Rate FiO2 12/06/20 09:00 94 122/52 12/06/20 06:00 98.1 18 98 Room Air 12/03/20 12:05 2 I&O- Last 24 Hours up to 6 AM 12/06/20 06:00 Intake Total 820 ml Balance 820 ml THANH ZHOU MD Dec 06, 2020 11:23
[2020-12-06 14:45] VITALS: BP 132/50
[2020-12-06 22:00] VITALS: BP 124/58
[2020-12-07] MEDS: HumaLOG INSULIN (NovoLOG) PER UNIT SC SCH ×4 (00:22→17:25)
[2020-12-07 06:00] VITALS: BP 125/58
[2020-12-07] MEDS: ceFAZolin SOD 2 GM in IV 1 EA IV SCH ×3 (06:36→21:08)
[2020-12-07] MEDS: SODIUM CHLORIDE 0.9% INJ 10 ML SYR IV SCH ×3 (06:36→17:24)
[2020-12-07] MEDS: HEPARIN SOD (PORCINE) 5000UNITS/ML 1ML VIAL/SYRINGE SQ SCH ×3 (06:37→21:08)
[2020-12-07 06:48] LABS: HEMATOCRIT 25.2 % (36.0-47.0); MEAN CORPUSCULAR HEMOGLOBIN 28.9 pg (27.0-33.0); MEAN CORPUSCULAR HGB CONC 31.7 g/dl (32.0-36.5); PLATELET COUNT, AUTOMATED 133 10^3/uL (150-450); RED BLOOD COUNT 2.77 10^6/uL (4.00-5.40); WHITE BLOOD COUNT 2.5 10^3/uL (4.0-10.0)
[2020-12-07 07:42] LABS: BLOOD UREA NITROGEN 10 MG/DL (7-18); CALCIUM LEVEL 7.6 MG/DL (8.8-10.2); CARBON DIOXIDE LEVEL 26 MEQ/L (21-32); CHLORIDE LEVEL 108 MEQ/L (98-107); CREATININE FOR GFR 0.57 MG/DL (0.55-1.30); GLOMERULAR FILTRATION RATE > 60.0 (>39); GLUCOSE, FASTING 134 MG/DL (70-100); POTASSIUM SERUM 4.1 MEQ/L (3.5-5.1); SODIUM LEVEL 140 MEQ/L (136-145)
[2020-12-07 08:50] VITALS: BP 138/50
[2020-12-07] MEDS: ROSUVASTATIN 10 MG TAB (CRESTOR) PEG SCH (09:45)
[2020-12-07] MEDS: atenoloL 25 MG TAB PEG SCH (09:46)
[2020-12-07] MEDS: ASPIRIN 81 MG CHEW TABLET PEG SCH (09:46)
[2020-12-07] MEDS: LEVEMIR (INSULIN DETEMIR) 1 UNITS/0.01ML SC SCH ×2 (09:47→21:34)
--- NOTE | 2020-12-07 13:33 | IPNPDOC ---
Text Note Date of Service The patient was seen on 12/07/20. NOTE Subjective: Patient seen and examined at bedside. No acute overnight events reported. No new medical complaints this morning. She is anxious to return home. Objective: VITAL SIGNS: see below GENERAL: Alert, comfortable, in no acute distress, pleasant HEENT: NC/AT, EOMI, edentulous CARDIOVASCULAR: +S1S2, RRR RESPIRATORY: lungs CTA B/L ABDOMEN: Soft, nondistended, bowel sounds present. J tube in place with some irritation of the skin around the site of insertion EXTREMITIES: No cyanosis or edema. Pulses 2+/4 in bilateral upper and lower extremities SKIN: No erythema or warmth around port in right upper chest with mild tenderness to palpation. 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 No leukocytosis or lactic acidosis - General surgery was called on consultation for reinsertion of J tube, suggested IR consult. - Consulted Dr. Petty/IR for J tube replacement, completed on 12/03/20 - s/p garrett catheter inserted to maintain patency of J tube site - Resumed tube feedings with Ensure (3 cans daily with infusion rate of 60cc/hour) - balloon size adjusted by Dr. Aceves to prevent leaking(removed 2mL, leaving 5mL inside the balloon) # Bacteremia with positive port cultures - two blood cultures positive for staph aureus, sensitivities show MSSA - continue IV abx s/p vancomycin and aztreonam, switched to cefazolin day #7 - repeat peripheral blood cultures x2 negative at 72 hours. Port culture x2 positive for MSSA. Repeat port culture pending - negative to date. - Port may need to be removed if the cultures continue to grow MSSA. - TTE report reviewed, no findings suggestive of endocarditis - Infectious disease/Dr. Galan consulted, appreciate recommendations # Vision change and left eye pain - resolved - started when TPN was started. Unlikely to be a side effect. TPN is discontinued today now that she has functioning J tube in place - CT orbits showed no acute findings. - plan for outpatient referral to ophthalmology. # Gastroesophageal adenocarcinoma - Dx 10/17/[address] Estrada - PET scan completed 11/09/2020 is without evidence of metastasis - Patient has started receiving radiation therapy with Dr. Ty on 11/23 - Patient follows with Dr. Conteh, has received first dose of chemotherapy on 11/26 with Carbotaxol # Hyperglycemia - likely 2/2 NIDDM2 and non-compliance with medications - Patient had stopped taking her metformin since October after her poor oral intake - Continue on ISS and low dose Levemir BID - restart J tube feeds as above # Hypernatremia, resolved - Likely 2/2 dehydration - monitor BMP daily # Acute kidney injury - resolved - likely 2/2 dehydration, resolved - Cr baseline of 1-1.2; Cr has returned to baseline - s/p 1 L of NS in the ER # HTN - BP well controlled - continue home Atenolol # DLP - continue home Rosuvastatin # PAD s/p Aorto-femoral stent - continue home ASA # Celiac artery high grade stenosis - continue home ASA DVT prophylaxis: sc Heparin Disposition: pending repeat blood culture results, may need infusaport removal, expect dc home when clinically improved. ID follow up. VS,Fishbone, I+O VS, Fishbone, I+O Laboratory Tests 12/07/20 06:31 Vital Signs Date Time Temp Pulse Resp B/P (MAP) Pulse Ox O2 Delivery O2 Flow Rate FiO2 12/07/20 09:46 86 138/50 12/07/20 06:00 99.0 16 96 Room Air 12/03/20 12:05 2 I&O- Last 24 Hours up to 6 AM 12/07/20 06:00 Intake Total 970 ml Balance 970 ml THANH ZHOU MD Dec 07, 2020 13:33
[2020-12-07 14:00] VITALS: BP 133/61
[2020-12-07 22:00] VITALS: BP 101/51
[2020-12-08] MEDS: HumaLOG INSULIN (NovoLOG) PER UNIT SC SCH ×5 (01:09→23:40)
[2020-12-08 06:00] VITALS: BP 105/49
[2020-12-08] MEDS: SODIUM CHLORIDE 0.9% INJ 10 ML SYR IV SCH ×3 (06:30→18:58)
[2020-12-08] MEDS: ceFAZolin SOD 2 GM in IV 1 EA IV SCH ×3 (06:31→22:00)
[2020-12-08] MEDS: HEPARIN SOD (PORCINE) 5000UNITS/ML 1ML VIAL/SYRINGE SQ SCH ×3 (06:31→22:00)
[2020-12-08] MEDS: LEVEMIR (INSULIN DETEMIR) 1 UNITS/0.01ML SC SCH ×2 (09:00→22:00)
[2020-12-08] MEDS: ASPIRIN 81 MG CHEW TABLET PEG SCH (09:01)
[2020-12-08] MEDS: atenoloL 25 MG TAB PEG SCH (09:03)
[2020-12-08] MEDS ORDERED: PILL CUTTER 1 EACH XX PRN (09:30)
[2020-12-08 09:32] VITALS: BP 132/56
[2020-12-08] MEDS: ROSUVASTATIN 10 MG TAB (CRESTOR) PEG SCH (09:39)
--- NOTE | 2020-12-08 11:13 | IPNPDOC ---
Text Note Date of Service The patient was seen on 12/08/20. NOTE Subjective: Patient is a 70-year-old female who presented to emergency room today because her PEG tube had fallen out. Patient reports that he at home she has an infusion of 3 cans of ensure while asleep, at a rate of 60 cc/hour. Overnight patient had started this evening, however, woke up and found that the tube had gotten dislodged. Patient had reported pain around the site uupon arrival, however, does not experience any significant pain after receiving morphine. Patient reports some nausea. Has been having a very mild productive cough. Denies any shortness of breath, chest pain or vomiting. Denies any abdominal discomfort. Currently denies any diarrhea. Her last bowel movement was a few days ago and reported normal and not dark. Denies any urinary discomfort. Denies any fevers or chills. Denies LE swelling. Patient was seen and examined at the bedside. . Patient is doing well. Denies any chest pain, shortness breath or palpitations. Has not experience any nausea, vomiting or abdominal pain. Objective: Vitals (See below) General: Lying in bed, appears comfortable, AAOx3 HEENT: NC, AT CVS: RRR, +S1S2 Lungs: Fair air entry b/l, -w/r/r Abdomen: Soft, ND, NT Extremities: - Edema, - Calf tenderness Imaging: CT abdomen / pelvis 11/29: GE junction mass centrally unchanged. Less distention of the thoracic esophagus. There is air and a tiny amount of fluid in the jejunostomy tract with some adjacent inflammation of the anterior abdominal wall. Cholelithiasis. Left colonic diverticulosis. No other acute intra-abdominal abnormality. CT orbit 12/04: Unremarkable orbits. Assessment and plan: Dislodged feeding tube - Feeding tube is reinserted on 12/03/[address] Petty - Resume tube feedings with Ensure (3 cans with infusion rate of 60cc/hour) once PEG tube is re-inserted Bacteremia 10/06 Staph Aureus - Blood cultures 12/02: Staph Aureus - Blood culture 12/03 and 12/04 negative at 5 days / 72 hours - ECHO noted; negative for vegetations - c/w Cefazolin - anticipate end date of 12/16 - Dr. Galan / ID on consult Gastroesophageal adenocarcinoma - Dx 10/17/[address] Estrada - PET scan completed 11/09/2020 is without scintigraphic evidence of metastasis - Patient has started receiving radiation therapy with Dr. Ty on 11/23; completed 5 rounds - Patient follows with Dr. Conteh, has received first dose of chemotherapy on 11/26 with Carbotaxol Hyperglycemia - likely 2/2 NIDDM2 and non-compliance with medications - Patient had stopped taking her metformin since October after her poor oral intake - c/w ISS and Levemir s/p Hypernatremia - Likely 2/2 dehydration s/p Hyperkalemia s/p Acute kidney injury - likely 2/2 dehydration - Cr baseline of 1-1.2; Cr currently elevated HTN - BP well controlled - c/w Atenolol DLP - c/w Rosuvastatin PAD s/p Aorto-femoral stent - c/w ASA Celiac artery high grade stenosis - c/w ASA DVT prophylaxis - c/w Heparin VS,Fishbone, I+O VS, Fishbone, I+O Vital Signs Date Time Temp Pulse Resp B/P (MAP) Pulse Ox O2 Delivery O2 Flow Rate FiO2 12/08/20 09:32 98.1 86 18 132/56 (81) 97 Room Air 12/03/20 12:05 2 I&O- Last 24 Hours up to 6 AM 12/08/20 06:00 Intake Total 200 ml Output Total 0 ml Balance 200 ml SANJU FRANKLIN MD Dec 08, 2020 11:13
[2020-12-08 13:30] VITALS: BP 120/58
[2020-12-08 22:00] VITALS: BP 107/48
[2020-12-09 06:00] VITALS: BP 107/50
[2020-12-09] MEDS: HumaLOG INSULIN (NovoLOG) PER UNIT SC SCH ×2 (06:00→12:00)
[2020-12-09] MEDS: ceFAZolin SOD 2 GM in IV 1 EA IV SCH ×2 (06:39→14:56)
[2020-12-09] MEDS: HEPARIN SOD (PORCINE) 5000UNITS/ML 1ML VIAL/SYRINGE SQ SCH ×2 (06:39→14:56)
[2020-12-09] MEDS: SODIUM CHLORIDE 0.9% INJ 10 ML SYR IV SCH ×2 (06:40→11:08)
[2020-12-09] MEDS: LEVEMIR (INSULIN DETEMIR) 1 UNITS/0.01ML SC SCH (09:00)
[2020-12-09] MEDS: ROSUVASTATIN 10 MG TAB (CRESTOR) PEG SCH (11:04)
[2020-12-09] MEDS: ASPIRIN 81 MG CHEW TABLET PEG SCH (11:04)
[2020-12-09 11:05] VITALS: BP 124/42
[2020-12-09] MEDS: atenoloL 25 MG TAB PEG SCH (11:05)
[2020-12-09 11:39] LABS: BASO % 0.5 % (0.0-1.0); HEMOGLOBIN 7.9 g/dl (12.0-15.5); LYMPH # 0.2 10^3/uL (1.5-5.0); LYMPH % 7.8 % (24.0-44.0); MEAN CORPUSCULAR HEMOGLOBIN 28.5 pg (27.0-33.0); MEAN CORPUSCULAR HGB CONC 31.6 g/dl (32.0-36.5); MEAN CORPUSCULAR VOLUME 90.3 fl (80.0-96.0); MONO # 0.3 10^3/uL (0.0-0.8); MONO % 13.6 % (2.0-8.0); NEUTROPHILS # 1.6 10^3/uL (1.5-8.5); NEUTROPHILS % 76.6 % (36.0-66.0); PLATELET COUNT, AUTOMATED 138 10^3/uL (150-450); RED BLOOD COUNT 2.77 10^6/uL (4.00-5.40); WHITE BLOOD COUNT 2.1 10^3/uL (4.0-10.0)
[2020-12-09] MEDS ORDERED: PEN1MIS21 SC (11:41)
[2020-12-09] MEDS ORDERED: LANTINJ4 SC (11:41)
[2020-12-09] MEDS ORDERED: METF10004 PO (11:41)
[2020-12-09] MEDS ORDERED: ALCOPAD25 TOP (11:41)
[2020-12-09] MEDS ORDERED: BLOOKIT21 XX (11:41)
[2020-12-09] MEDS ORDERED: GLUC1TES2 XX (11:41)
[2020-12-09] MEDS ORDERED: LANC30MI XX (11:41)
[2020-12-09 13:04] LABS: BLOOD UREA NITROGEN 8 MG/DL (7-18); CALCIUM LEVEL 7.7 MG/DL (8.8-10.2); CARBON DIOXIDE LEVEL 27 MEQ/L (21-32); CHLORIDE LEVEL 107 MEQ/L (98-107); CREATININE FOR GFR 0.58 MG/DL (0.55-1.30); FERRITIN 265 NG/ML (8-252); FOLATE 10.8 NG/ML (>5.4); GLOMERULAR FILTRATION RATE > 60.0 (>39); GLUCOSE, FASTING 109 MG/DL (70-100); IRON (FE) 18 UG/DL (50-170); PERCENT SATURATION 10.7 % (13.2-45.0); POTASSIUM SERUM 3.9 MEQ/L (3.5-5.1); SODIUM LEVEL 139 MEQ/L (136-145); TOTAL IRON BINDING CAPACITY 168 UG/DL (250-450); VITAMIN B12 LEVEL 223 PG/ML (247-911)
[2020-12-09] MEDS ORDERED: FERR325T3 PO (13:06)
[2020-12-09] MEDS ORDERED: B-122500 PO (13:06)
--- NOTE | 2020-12-09 13:22 | DS.PDOC ---
Discharge Summary General Date of Admission Nov 29, 2020 at 12:11 Date of Discharge 12/09/2020 Discharge Summary PROCEDURES PERFORMED DURING STAY: [None]. ADMITTING DIAGNOSES / DISCHARGE DIAGNOSES: COMPLICATIONS/CHIEF COMPLAINT: J tube dislodged HISTORY OF PRESENT ILLNESS: Patient is a 70-year-old female who presented to emergency room today because her PEG tube had fallen out. Patient reports that he at home she has an infusion of 3 cans of ensure while asleep, at a rate of 60 cc/hour. Overnight patient had started this evening, however, woke up and found that the tube had gotten dislodged. Patient had reported pain around the site upon arrival, however, does not experience any significant pain after receiving morphine. Patient was admitted to the hospital service for further evaluation and treatment. On patient's subsequent day of hospitalization, her blood cultures were found to be positive and ID was called on consultation. HOSPITAL COURSE: Dislodged feeding tube - Feeding tube is reinserted on 12/03/[address] Petty - Resume tube feedings with Ensure (3 cans with infusion rate of 60cc/hour) once PEG tube is re-inserted Bacteremia 10/06 Staph Aureus - Blood cultures 12/02: Staph Aureus - Blood culture 12/03 and 12/04 negative at 5 days / 72 hours - ECHO noted; negative for vegetations - c/w Cefazolin - anticipate end date of 12/16 - Patient will receive home infusions of cefazolin - Dr. Galan / ID on consult - Patient has been instructed to follow-up with Dr. Galan within the next 7 days for repeat blood cultures Gastroesophageal adenocarcinoma - Dx 10/17/[address] Estrada - PET scan completed 11/09/2020 is without scintigraphic evidence of metastasis - Patient has started receiving radiation therapy with Dr. Ty on 11/23; completed 5 rounds - Patient follows with Dr. Conteh, has received first dose of chemotherapy on 11/26 with Carbotaxol Hyperglycemia - likely 2/2 NIDDM2 and non-compliance with medications - Patient had stopped taking her metformin since October after her poor oral intake - c/w ISS and Levemir - On discharge will c/w long-acting insulin and metformin Anemia - possibly 2/2 iron deficiency / B12 deficiency - B12 / Iron levels noted - Will start supplementation on discharge - Will have outpatient follow up with Oncology within 7 days s/p Hypernatremia - Likely 2/2 dehydration s/p Hyperkalemia s/p Acute kidney injury - likely 2/2 dehydration - Cr baseline of 1-1.2; Cr improved HTN - BP well controlled - c/w Atenolol DLP - c/w Rosuvastatin PAD s/p Aorto-femoral stent - c/w ASA Celiac artery high grade stenosis - c/w ASA DVT prophylaxis - c/w Heparin DISCHARGE MEDICATIONS: Please see below. ALLERGIES: Please see below. PHYSICAL EXAMINATION ON DISCHARGE: Vitals (See below) General: Lying in bed, appears comfortable, awake and alert, oriented to person, place and time HEENT: NC, AT CVS: +S1S2 Lungs: Fair air entry b/l, no appreciable wheezing, rhonchi or rales Abdomen: Soft, nondistended and nontender. G-tube in place Extremities: Lower extremity is without any edema, - Calf tenderness LABORATORY DATA: Please see below. IMAGING: CT abdomen / pelvis 11/29: GE junction mass centrally unchanged. Less distention of the thoracic esophagus. There is air and a tiny amount of fluid in the jejunostomy tract with some adjacent inflammation of the anterior abdominal wall. Cholelithiasis. Left colonic diverticulosis. No other acute intra-abdominal abnormality. CT orbit 12/04: Unremarkable orbits. ACTIVITY: [As tolerated]. DISCHARGE PLAN: Follow-up with primary care provider within the next 7 days Follow-up with infectious disease within the next 7 days Remain compliant with treatment plan and medications Return to the ER if you experience any problems DISPOSITION: Home with services DISCHARGE CONDITION: [Stable]. TIME SPENT ON DISCHARGE: 35 minutes. Vital Signs/I&Os Vital Signs Date Time Temp Pulse Resp B/P (MAP) Pulse Ox O2 Delivery O2 Flow Rate FiO2 12/09/20 11:05 85 124/42 12/09/20 06:00 99.5 20 97 Room Air 12/03/20 12:05 2 I&O- Last 24 Hours up to 6 AM 12/09/20 06:00 Intake Total 920 ml Output Total 0 ml Balance 920 ml Laboratory Data Labs 24H Laboratory Tests 2 12/08/20 18:48: Bedside Glucose (Misc Panel) 159H 12/08/20 20:25: Bedside Glucose (Misc Panel) 167H 12/08/20 23:35: Bedside Glucose (Misc Panel) 148H 12/09/20 06:38: Bedside Glucose (Misc Panel) 103 12/09/20 11:17: Immature Granulocyte % (Auto) 0.5, Neutrophils (%) (Auto) 76.6H, Lymphocytes (%) (Auto) 7.8L, Monocytes (%) (Auto) 13.6H, Eosinophils (%) (Auto) 1.0, Basophils (%) (Auto) 0.5, Neutrophils # (Auto) 1.6, Lymphocytes # (Auto) 0.2L, Monocytes # (Auto) 0.3, Eosinophils # (Auto) 0.0, Basophils # (Auto) 0.0, Reticulocyte # (auto) 60.8, Nucleated Red Blood Cells % (auto) 0.0, Percent Reticulocyte Count 2.2H, Reticulocyte Hemoglobin Equivalent 28.0, Anion Gap 5L, Glomerular Filtration Rate > 60.0, Calcium Level 7.7L, Magnesium Level 2.0, Iron Level 18L, Total Iron Binding Capacity 168L, Transferrin % Saturation 10.7L, Ferritin 265H, Vitamin B12 Level 223L, Folate 10.8 12/09/20 12:09: Bedside Glucose (Misc Panel) 93 CBC/BMP Laboratory Tests 12/09/20 11:17 FSBS Laboratory Tests Test 12/08/20 18:48 12/08/20 20:25 12/08/20 23:35 12/09/20 06:38 Range/Units Bedside Glucose (Misc Panel) 159 167 148 103 83-110 MG/DL Test 12/09/20 12:09 Range/Units Bedside Glucose (Misc Panel) 93 83-110 MG/DL Microbiology Microbiology 12/04/20 Blood Culture - Preliminary, Resulted No Growth after 72 hours. All specime... 12/03/20 Blood Culture - Final, Complete NO GROWTH AFTER 5 DAYS 12/02/20 Blood Culture - Final, Complete Staphylococcus Aureus 12/01/20 Blood Culture - Final, Complete Staphylococcus Aureus 11/30/20 Blood Culture - Final, Complete NO GROWTH AFTER 5 DAYS 11/30/20 Blood Culture - Final, Complete NO GROWTH AFTER 5 DAYS 11/29/20 Urine Culture - Final, Complete 11/29/20 Blood Culture - Final, Complete Staphylococcus Aureus 11/29/20 Blood Culture - Final, Complete Staphylococcus Aureus Discharge Medications Scheduled Aspirin (Aspirin EC) 81 Mg Tablet.dr, 81 MG PO DAILY, (Reported) Atenolol (Atenolol) 25 Mg Tablet, 25 MG PO DAILY, (Reported) Blood Sugar Diagnostic (Advanced Glucose Test Strips) 1 Each Strip, 1 STRIP XX ASDIRECTED Check glucose 4 times dialy Cyanocobalamin (Vitamin B-12) (Vitamin B12) 2,500 Mcg Tablet, 1 TAB PO DAILY Ferrous Sulfate (Ferrous Sulfate) 325 Mg Tablet.dr, 1 TAB PO BID Insulin Glargine,Hum.rec.anlog (Lantus Solostar) 100 Unit/1 Ml Insuln.pen, 5 UNIT SC BID Metformin HCl (Metformin HCl) 1,000 Mg Tablet, 1 TAB PO BID Ondansetron HCl (Ondansetron HCl) 8 Mg Tablet, 8 MG PO TID Rosuvastatin Calcium (Crestor) 5 Mg Tablet, 5 MG PO DAILY, (Reported) Scheduled PRN Prochlorperazine Maleate (Prochlorperazine Maleate) 10 Mg Tablet, 1 TAB PO Q6H PRN for Breakthrough nausea/vomiting Allergies Coded Allergies: shellfish derived (Verified Allergy, Intermediate, rash, vomiting, 10/17/20) Penicillins (Verified Adverse Reaction, Unknown, hyperventilation, 10/17/20) SANJU FRANKLIN MD Dec 09, 2020 13:22
== END 2020-12-09 16:35 | disposition home health service (06) | DRG 393 ==
LOC: M ED 06:23 → M ED INP 12:11 → ENRESERV 12:17 → M PCU 14:29 → M MS5PR 12-01 23:46
PROVIDERS: ADMIT Internal Medicine; ATTEND Internal Medicine
PROC: 02HV33Z Insertion of Infusion Device into Superior Vena Cava, Percutaneous Approach (ICD-10-PCS; 2020-12-03)
PROC: 0DHA3UZ Insertion of Feeding Device into Jejunum, Percutaneous Approach (ICD-10-PCS; principal; 2020-12-03 08:00)
DX: K94.23 Gastrostomy malfunction (principal); E43 Unspecified severe protein-calorie malnutrition; R78.81 Bacteremia; C16.0 Malignant neoplasm of cardia; N17.9 Acute kidney failure, unspecified; L03.311 Cellulitis of abdominal wall; E87.0 Hyperosmolality and hypernatremia; K94.22 Gastrostomy infection; B95.8 Unspecified staphylococcus as the cause of diseases classified elsewhere; Z91.14 Patient's other noncompliance with medication regimen; E11.65 Type 2 diabetes mellitus with hyperglycemia; D50.9 Iron deficiency anemia, unspecified; E53.8 Deficiency of other specified B group vitamins; Z79.899 Other long term (current) drug therapy; Z79.82 Long term (current) use of aspirin; Z88.0 Allergy status to penicillin; Z91.013 Allergy to seafood; I10 Essential (primary) hypertension; Z98.41 Cataract extraction status, right eye; Z98.42 Cataract extraction status, left eye; E87.5 Hyperkalemia; E78.5 Hyperlipidemia, unspecified; R13.10 Dysphagia, unspecified

== ENCOUNTER → 2020-12-02 | Outpatient (RCR) | payer MEDICARE, OTHER | LOC: M ONCR 11-05 09:27 | PROVIDERS: ATTEND General Practice | DX: C15.5 Malignant neoplasm of lower third of esophagus (principal) ==

== ENCOUNTER 2020-12-12 09:38 | Outpatient (CLI) | payer MEDICARE, OTHER ==
[2020-12-12] VITALS (9 sets, daily range): BP systolic 106–148; BP diastolic 52–83
[~2020-12-12 09:38] MED LIST changes: +ACETAMINOPHEN TAB 650MG DOSE (2X325MG) PO SCH; +ALCOPAD25 TOP; +B-122500 PO; +BLOOKIT21 XX; +FERR325T3 PO; +GLUC1TES2 XX; +LANC30MI XX; +LANTINJ4 SC; +METF10004 PO; +PEN1MIS21 SC; +diphenhydrAMINE 25MG CAP PO SCH
[2020-12-12] MEDS ORDERED: diphenhydrAMINE 50MG/ML VIAL (J1200) IV ONE (12:15)
[2020-12-12] MEDS ORDERED: FUROSEMIDE 20MG/2ML VIAL (J1940) IV ONE (13:40)
[2020-12-12] MEDS ORDERED: GASTROGRAFIN SOLUTION 30ML PO SCH (13:50)
--- NOTE | 2020-12-12 19:12 | REP ---
INDICATION: check J tube position. COMPARISON: 12/03/2020. TECHNIQUE: AP view abdomen and pelvis. FINDINGS: Jejunostomy tube is again visualized, the balloon is seen just to the left of midline as on prior study. There are adjacent metallic clips in that region. The catheter extends into the region of the right lower quadrant with the distal end coiled in the right pelvis. No dilated bowel loops are seen. Two metallic clips overlie the right hip joint. Metallic clip is seen in the left inguinal region. There are vascular calcifications in the pelvis. There are degenerative changes of the spine. IMPRESSION: Jejunostomy tube enters the mid abdomen just to the left midline as on prior study. The tube traverses to the right lower quadrant and the distal end is coiled in the right pelvis. <Electronically signed by Mir Escobedo > 12/12/20 [id number]
[2020-12-13] MEDS ORDERED: METF-877 PO (17:09)
[2020-12-13] MEDS ORDERED: CYAN2500 SL (17:09)
[2020-12-13] MEDS ORDERED: LANTINJ4 SC (17:09)
[2020-12-13] MEDS ORDERED: FERR1TAB8 PO (17:09)
== END 2020-12-12 20:01 | disposition home or self-care (01) ==
LOC: M OPCLI4PV 09:38 → M MSPAV 09:45 → M OPCLI4PV 20:01
PROVIDERS: ATTEND Internal Medicine Hematology & Oncology
DX: C15.5 Malignant neoplasm of lower third of esophagus (principal); Z88.0 Allergy status to penicillin; Z91.013 Allergy to seafood

== ENCOUNTER 2020-12-13 15:16 | Inpatient (IN) | payer MEDICARE, OTHER ==
[~2020-12-13] VITALS: Ht 160 cm; Wt 54.0 kg
[~2020-12-13 15:16] MED LIST changes: -ACETAMINOPHEN TAB 650MG DOSE (2X325MG) PO SCH; -diphenhydrAMINE 25MG CAP PO SCH
[2020-12-13] MEDS ORDERED: ONDANSETRON 4MG/2ML VIAL IV ONE (15:50)
[2020-12-13] MEDS ORDERED: NS 1,000 ML IV SCH (15:50)
[2020-12-13 16:37] LABS: HEMATOCRIT 41.6 % (36.0-47.0); HEMOGLOBIN 13.2 g/dl (12.0-15.5); MEAN CORPUSCULAR HEMOGLOBIN 28.2 pg (27.0-33.0); MEAN CORPUSCULAR HGB CONC 31.7 g/dl (32.0-36.5); MEAN CORPUSCULAR VOLUME 88.9 fl (80.0-96.0); PLATELET COUNT, AUTOMATED 125 10^3/uL (150-450); RED BLOOD COUNT 4.68 10^6/uL (4.00-5.40); WHITE BLOOD COUNT 3.1 10^3/uL (4.0-10.0)
[2020-12-13] MEDS ORDERED: GLUCAGON INJ 1MG VIAL SC PRN (16:45)
[2020-12-13] MEDS ORDERED: DEXTROSE 50% 50 ML SYRINGE IV PRN (16:45)
[2020-12-13] MEDS ORDERED: GLUCOSE 4GM CHEW TABLET PO PRN (16:45)
[2020-12-13] MEDS ORDERED: ONDANSETRON 4MG/2ML VIAL IV PRN (16:50)
[2020-12-13] MEDS ORDERED: METF-877 PO (17:09)
[2020-12-13] MEDS ORDERED: FERR1TAB8 PO (17:09)
[2020-12-13] MEDS ORDERED: LANTINJ4 SC (17:09)
[2020-12-13] MEDS ORDERED: CYAN2500 SL (17:09)
[2020-12-13 17:11] LABS: ALBUMIN 2.3 GM/DL (3.2-5.2); ALT/SGPT < 6 U/L (12-78); BILIRUBIN,TOTAL 0.5 MG/DL (0.2-1.0); BLOOD UREA NITROGEN 10 MG/DL (7-18); CALCIUM LEVEL 8.5 MG/DL (8.8-10.2); CARBON DIOXIDE LEVEL 28 MEQ/L (21-32); CHLORIDE LEVEL 108 MEQ/L (98-107); CREATININE FOR GFR 0.74 MG/DL (0.55-1.30); GLOMERULAR FILTRATION RATE > 60.0 (>39); GLUCOSE, FASTING 108 MG/DL (70-100); LIPASE 56 U/L (73-393); POTASSIUM SERUM 4.6 MEQ/L (3.5-5.1); SODIUM LEVEL 142 MEQ/L (136-145); TOTAL PROTEIN 6.1 GM/DL (6.4-8.2)
--- NOTE | 2020-12-13 17:21 | HPEPDOC ---
[facility] Medical History & Physical Date of Admission Dec 13, 2020 Date of Service: Dec 13, 2020 History and Physical Chief complaint: Malfunctioning J-tube History of present illness: Patient is a 70-year-old female who presented to the emergency room with a malfunctioning J-tube. Patient reported that she was getting her feeding infusions Monday night into Monday morning. . She noted that the full infusion was completed. However, by Monday, she wasnt able to push in any more medications.. She was scheduled to receive a blood transfusion from oncology on that day so she came in to the hospital for that. While she was here she had an evaluation by general surgery to see if any additional interventions could be performed to help alleviate the blockage. Were unable to clear the passageway. The patient did not want to stay in the hospital for further evaluation and decided to go home. She is returned back to the emergency room for further evaluation of her malfunctioning J-tube. Patient denies any pain of her abdomen. Reports that shes no stress has had secretions/coughing. Denies any chest pain, short of breath or palpitations. Has not experience any diarrhea. Her last bowel movement was Monday. Denies any urinary discomfort. Denies any fevers but does report feeling cold all the time. Past Medical History: Gastroesophageal adenocarcinoma (Dx 10/17/2020; Receiving radiation and chemotherapy) Staph aureus bacteremia - suspected to be 2/2 port site - currently on Cefazolin infusion (End date 12/16) HTN DLP PAD s/p Aorto- bifemoral stent Celiac artery high grade stenosis NIDDM2; non-compliant with medications Past Surgical History: Appendectomy Bilateral cataract surgery Total hysterectomy and bilateral salpingo-oophorectomy Aorto- bifemoral stent Port placement 11/13/2020 J-tube placement 10/18/[address] Petty; again with Dr. Petty on 12/03/2020 Allergies: See below Medications: See below Family History: - Mother with history of diabetes - Father with history of CAD, Stroke, and Alcohol abuse - No history of malignancies Social History: - Denies the use of alcohol or illicit drugs; patient reports that she quit smoking early October 2020 - Denies recent travel; currently off quarantine after exposure to COVID19 positive son - Lives with son Review of Systems: 10 point review of systems complete, all negative otherwise stated in HPI Physical exam: - Vitals: BP [148/78], HR [118], RR [18], Sat [96%RA], Temp [97.2F] - General: Lying in bed, No acute distress, Speaking in full sentences, AAOx3 - HEENT: NC, AT, PERRLA - CVS: RRR, +S1S2 - Lungs: Fair air entry bilaterally, No appreciable wheezing / rales / rhonchi - Abdomen: Soft, Non-distended, Non-tender, +J tube with surrounding erythema - Extremities: No lower extremity edema, No calf tenderness - Neuro: No focal motor or sensory deficit - Skin: No visible rashes Labs: See below Imaging: See below EKG: See below Assessment and Plan: Malfunctioning J tube - J-tube seems to have stopped working, Monday morning, 12/12 - Patient denies any abdominal pain; reports nausea - Recently placed J-tube on 12/[address] Petty - Imaging reviewed - Dr. Mclaughlin of general surgery has attempted to correct the blockage on 12/12 - Will consult with Dr. Petty for replacement J-tube - Will start Dextrose based fluids while NPO / Tube feedings off - Will resume tube feedings with Ensure (3 cans with infusion rate of 60cc/hour) once J tube is functional Gastroesophageal adenocarcinoma - Dx 10/17/[address] Estrada - PET scan completed 11/09/2020 is without scintigraphic evidence of metastasis - Patient has started receiving radiation therapy with Dr. Ty - Chemotherapy with Carbotaxol on hold (re: Leukopenia) - was started on 11/26 - Follows with Dr. Conteh of oncology Thrombocytopenia - possibly 2/2 chemotherapy - No evidence of bleeding - Count appear to have gone down after initiating chemotherapy; but have remained similar since 11/30 - Will continue to monitor / follow counts s/p Normocytic anemia - Has received 2 units PRBC transfusion on 12/12 from Oncology - Currently appears to be higher than normal; re: dehydration Staph aureus bacteremia - suspected to be 2/2 port site - Blood cultures 12/01 and 12/02: Staph aureus; Frist negative blood culture was 12/03 - Currently on Cefazolin infusion (End date 12/16) - Will continue with Cefazolin HTN - BP currently well controlled - Will continue to monitor - Will place in PCU for IV BP medications if required DLP - Will hold statin NIDDM2 - Patient reports that she has been non-compliant with medications - She was discharged with metformin and long-acting insulin, however, did not want to take any of it - Will start ISS [id number] for now PAD s/p Aorto- bifemoral stent - ASA on hold pending correction of malfunctioning J tube Celiac artery high grade stenosis - ASA on hold pending correction of malfunctioning J tube DVT prophylaxis - Will start Heparin Vital Signs Vital Signs Date Time Temp Pulse Resp B/P (MAP) Pulse Ox O2 Delivery O2 Flow Rate FiO2 12/13/20 15:16 97.2 118 18 148/78 (101) 96 Room Air Laboratory Data Labs 24H Laboratory Tests 2 12/13/20 16:22: Neutrophils (%) (Auto) , Nucleated Red Blood Cells % (auto) 0.0, Anion Gap 6L, Glomerular Filtration Rate > 60.0, Calcium Level 8.5L, Total Bilirubin 0.5, Aspartate Amino Transf (AST/SGOT) 22, Alanine Aminotransferase (ALT/SGPT) < 6L, Alkaline Phosphatase 53, Total Protein 6.1L, Albumin 2.3L, Albumin/Globulin Ratio 0.6L, Lipase 56L CBC/BMP Laboratory Tests 12/13/20 16:22 Home Medications Scheduled Aspirin (Aspirin EC) 81 Mg Tablet.dr, 81 MG PO DAILY Atenolol (Atenolol) 25 Mg Tablet, 25 MG PO DAILY Cyanocobalamin (Vitamin B-12) (Vitamin B-12) 2,500 Mcg Tab.subl, 2,500 MCG SL DAILY Ferrous Sulfate (Ferrous Sulfate) 325 Mg Tablet, 325 MG PO BID Insulin Glargine,Hum.rec.anlog (Lantus Solostar) 100 Unit/1 Ml Insuln.pen, 5 UNITS SC BID Metformin HCl (Metformin HCl) 1,000 Mg Tablet, 1,000 MG PO BID Rosuvastatin Calcium (Crestor) 5 Mg Tablet, 5 MG PO DAILY Allergies Coded Allergies: shellfish derived (Verified Allergy, Intermediate, rash, vomiting, 10/17/20) Penicillins (Verified Adverse Reaction, Unknown, hyperventilation, 10/17/20) SANJU FRANKLIN MD Dec 13, 2020 17:21
[2020-12-13 17:25] LABS: INR 1.1; PROTHROMBIN TIME 14.4 SECONDS (12.5-14.3)
[2020-12-13 17:42] LABS: ATYPICAL LYMPH 5 % (0-5); EOSINOPHILS 3 % (0-3); LYMPHOCYTES 3 % (16-44); MONOCYTES 2 % (0-5); NEUTROPHILS 86 % (28-66); PLATELET ESTIMATE DECREASED (NORMAL)
[2020-12-13 17:45] LABS: RSV AMPLIFICATION NEGATIVE (NEGATIVE)
[2020-12-13] MEDS ORDERED: ceFAZolin SOD 2 GM in IV 1 EA IV SCH (18:00)
[2020-12-13] MEDS: HumaLOG INSULIN (NovoLOG) PER UNIT SC SCH (19:30)
[2020-12-13] MEDS: D5W/0.45% SODIUM CHLORIDE 1,000 ML IV SCH (19:50)
[2020-12-13] MEDS: HEPARIN SOD (PORCINE) 5000UNITS/ML 1ML VIAL/SYRINGE SC SCH (22:36)
[2020-12-14] MEDS: D5W/0.45% SODIUM CHLORIDE 1,000 ML IV SCH ×3 (05:30→22:26)
[2020-12-14] MEDS: ceFAZolin SOD 2 GM in IV 1 EA IV SCH ×3 (05:46→22:55)
[2020-12-14] MEDS: HEPARIN SOD (PORCINE) 5000UNITS/ML 1ML VIAL/SYRINGE SC SCH ×3 (05:47→22:55)
[2020-12-14] MEDS ORDERED: SODIUM CHLORIDE 0.9% INJ 10 ML SYR IV PRN (06:35)
[2020-12-14] MEDS: HumaLOG INSULIN (NovoLOG) PER UNIT SC SCH ×5 (06:46→22:56)
[2020-12-14 07:54] LABS: BASO % 0.4 % (0.0-1.0); EOS % 1.1 % (0.0-3.0); HEMOGLOBIN 11.8 g/dl (12.0-15.5); LYMPH # 0.1 10^3/uL (1.5-5.0); LYMPH % 3.8 % (24.0-44.0); MEAN CORPUSCULAR HGB CONC 31.1 g/dl (32.0-36.5); MEAN CORPUSCULAR VOLUME 90.3 fl (80.0-96.0); MONO # 0.4 10^3/uL (0.0-0.8); MONO % 13.3 % (2.0-8.0); NEUTROPHILS # 2.1 10^3/uL (1.5-8.5); NEUTROPHILS % 80.6 % (36.0-66.0); PLATELET COUNT, AUTOMATED 106 10^3/uL (150-450); RED BLOOD COUNT 4.21 10^6/uL (4.00-5.40); WHITE BLOOD COUNT 2.6 10^3/uL (4.0-10.0)
--- NOTE | 2020-12-14 08:33 | IPNPDOC ---
Text Note Date of Service The patient was seen on 12/14/20. NOTE Subjective: Patient is a 70-year-old female who presented to the emergency room with a malfunctioning J-tube. Patient reported that she was getting her feeding infusions Monday night into Monday. . She noted that the full infusion was completed. However, by Monday, she wasnt able to push in any more medications.. She was scheduled to receive a blood transfusion from oncology on that day so she came in to the hospital for that. While she was here she had an evaluation by general surgery to see if any additional interventions could be performed to help alleviate the blockage. Were unable to clear the passageway. The patient did not want to stay in the hospital for further evaluation and decided to go home. She is returned back to the emergency room for further evaluation of her malfunctioning J-tube. Patient has had a recent admission for acute displaced J-tube that was reinserted by interventional radiology. Patient was seen and examined at the bedside. Patient reports that she feels slightly down. Denies any chest pain, shortness breath, palpitations. Has not experience any abdominal pain or diarrhea. Denies any urinary discomfort. Objective: Vitals (See below) General: Lying in bed, not in any acute distress, AAOx3 HEENT: NC, AT CVS: +S1S2 Lungs: Fair air entry b/l, no appreciable wheezing, rhonchi or rales Abdomen: Soft, nondistended, nontender, J-tube present with surrounding erythema Extremities: LE are without edema, - Calf tenderness Imaging: Abdominal XR 12/12: Jejunostomy tube enters the mid abdomen just to the left midline as on prior study. The tube traverses to the right lower quadrant and the distal end is coiled in the right pelvis. Assessment and plan: Malfunctioning J tube - J-tube seems to have stopped working, Monday, 12/12 - Abdomen remains benign without any tenderness; there is erythema noted - Recently placed J-tube on 12/[address] Petty - Imaging reviewed - Case discussed with Dr. Petty for replacement J-tube; she will discuss with surgery - c/w Dextrose based fluids while NPO / Tube feedings off - Will resume tube feedings with Ensure (3 cans with infusion rate of 60cc/hour) once J tube is functional Gastroesophageal adenocarcinoma - Dx 10/17/[address] Estrada - PET scan completed 11/09/2020 is without scintigraphic evidence of metastasis - Patient has started receiving radiation therapy with Dr. Ty - Chemotherapy with Carbotaxol on hold (re: Leukopenia) - was started on 11/26 - Follows with Dr. Conteh of oncology COVID19 positive - Patient denies any chest pain, shortness breath or palpitations - Remains afebrile - Will continue with supportive care - Patient would benefit from monoclonal antibodies as an outpatient Thrombocytopenia - possibly 2/2 chemotherapy - No evidence of bleeding - Count appear to have gone down after initiating chemotherapy; but have remained similar since 11/30 - Will continue to monitor / follow counts s/p Normocytic anemia - Has received 2 units PRBC transfusion on 12/12 from Oncology - Hemoglobin has trended down from admission. However, still appears to be higher than baseline even after considering the 2 units of transfusion - Will continue to monitor Staph aureus bacteremia - suspected to be 2/2 port site - Blood cultures 12/01 and 12/02: Staph aureus; Neidast negative blood culture was 12/03 - Currently on Cefazolin infusion (End date 12/16) -c/w Cefazolin into port HTN - BP currently well controlled - Will continue to monitor; has not required any IV based medications DLP - Will hold statin NIDDM2 - Patient reports that she has been non-compliant with medications - She was discharged with metformin and long-acting insulin, however, did not want to take any of it - c/w ISS [id number] for now PAD s/p Aorto- bifemoral stent - ASA on hold pending correction of malfunctioning J tube Celiac artery high grade stenosis - ASA on hold pending correction of malfunctioning J tube DVT prophylaxis - c/w Heparin Disposition: - Awaiting intervention from interventional radiology/surgery VS,Steve, I+O VS, Steve, I+O Laboratory Tests 12/13/20 16:22 12/14/20 07:40 Vital Signs Date Time Temp Pulse Resp B/P (MAP) Pulse Ox O2 Delivery O2 Flow Rate FiO2 12/14/20 07:57 59 95 12/14/20 07:01 18 153/64 (93) Room Air 12/14/20 06:00 98.5 I&O- Last 24 Hours up to 6 AM 12/14/20 05:59 Intake Total 555 ml Balance 555 ml SANJU FRANKLIN MD Dec 14, 2020 08:33
[2020-12-14 08:34] VITALS: BP 126/59
[2020-12-14 08:38] LABS: BLOOD UREA NITROGEN 9 MG/DL (7-18); CALCIUM LEVEL 7.8 MG/DL (8.8-10.2); CARBON DIOXIDE LEVEL 30 MEQ/L (21-32); CHLORIDE LEVEL 109 MEQ/L (98-107); CREATININE FOR GFR 0.75 MG/DL (0.55-1.30); GLOMERULAR FILTRATION RATE > 60.0 (>39); GLUCOSE, FASTING 173 MG/DL (70-100); POTASSIUM SERUM 4.1 MEQ/L (3.5-5.1); SODIUM LEVEL 143 MEQ/L (136-145)
[2020-12-14] MEDS: SODIUM CHLORIDE 0.9% INJ 10 ML SYR IV SCH (09:00)
[2020-12-14 16:00] VITALS: BP 144/62
[2020-12-14 20:43] VITALS: BP 117/58
[2020-12-15] MEDS: HumaLOG INSULIN (NovoLOG) PER UNIT SC SCH ×4 (05:23→23:16)
[2020-12-15] MEDS: ceFAZolin SOD 2 GM in IV 1 EA IV SCH ×3 (05:23→23:08)
[2020-12-15] MEDS: HEPARIN SOD (PORCINE) 5000UNITS/ML 1ML VIAL/SYRINGE SC SCH ×3 (05:23→23:08)
[2020-12-15 05:25] VITALS: BP 153/69
[2020-12-15 07:33] LABS: EOS # 0.1 10^3/uL (0.0-0.5); EOS % 2.8 % (0.0-3.0); HEMATOCRIT 35.8 % (36.0-47.0); HEMOGLOBIN 11.4 g/dl (12.0-15.5); LYMPH # 0.1 10^3/uL (1.5-5.0); LYMPH % 4.1 % (24.0-44.0); MEAN CORPUSCULAR HEMOGLOBIN 28.1 pg (27.0-33.0); MEAN CORPUSCULAR HGB CONC 31.8 g/dl (32.0-36.5); MEAN CORPUSCULAR VOLUME 88.4 fl (80.0-96.0); MONO # 0.3 10^3/uL (0.0-0.8); MONO % 13.8 % (2.0-8.0); NEUTROPHILS # 1.7 10^3/uL (1.5-8.5); NEUTROPHILS % 78.8 % (36.0-66.0); PLATELET COUNT, AUTOMATED 100 10^3/uL (150-450); RED BLOOD COUNT 4.05 10^6/uL (4.00-5.40); WHITE BLOOD COUNT 2.2 10^3/uL (4.0-10.0)
[2020-12-15 08:04] LABS: BLOOD UREA NITROGEN 6 MG/DL (7-18); CALCIUM LEVEL 7.9 MG/DL (8.8-10.2); CARBON DIOXIDE LEVEL 27 MEQ/L (21-32); CHLORIDE LEVEL 108 MEQ/L (98-107); GLOMERULAR FILTRATION RATE > 60.0 (>39); GLUCOSE, FASTING 124 MG/DL (70-100); MAGNESIUM LEVEL 1.8 MG/DL (1.8-2.4); POTASSIUM SERUM 3.1 MEQ/L (3.5-5.1); SODIUM LEVEL 142 MEQ/L (136-145)
[2020-12-15] MEDS: SODIUM CHLORIDE 0.9% INJ 10 ML SYR IV SCH (08:16)
--- NOTE | 2020-12-15 11:22 | IPNPDOC ---
Text Note Date of Service The patient was seen on 12/15/20. NOTE Patient with distal esophageal malignancy undergoing neoadjuvant chemoradiation. I placed a feeding jejunostomy on her 10/18/20. This was replaced by interventional radiology sometime in November when it fell off. Prior to that the jejunostomy tube was working well. Her feeding tube apparently stopped working last Monday for which our interventional radiologist does not think she will be able to replaced, thus I was asked to replace the feeding jejunostomy tube. She was also noted to have converted positive for COVID 19. She is reporting mild nonproductive cough, denies shortness of breath, fever. Exam looks comfortable pale appearing no JVD regular heart rate and rhythm clear breath sound, sligh posterior basal rales abdomen flat, soft, nondistended, jejunostomy feeding tube in place, mild erythema of surrounding skin resembling that of the disk nontender on palpation impression/plan nonfunctioning jejunostomy feeding tube will replace under fluorsocopy guidance in or VS,Donnybone, I+O VS, Donnybone, I+O Laboratory Tests 12/15/20 07:13 Vital Signs Date Time Temp Pulse Resp B/P (MAP) Pulse Ox O2 Delivery O2 Flow Rate FiO2 12/15/20 05:25 99.1 69 16 153/69 (97) 94 Room Air I&O- Last 24 Hours up to 6 AM 12/15/20 06:00 Intake Total 1382 ml Output Total 250 ml Balance 1132 ml JASBIR VALENZUELA MD Dec 15, 2020 11:22
[2020-12-15] MEDS ORDERED: propofoL 200 MG/20 ML VIAL As Ordered ONE ×2 (11:41→12:27)
[2020-12-15] MEDS ORDERED: CONRAY-60 60% 50ML VIAL (Q9961) As Ordered ONE (11:42)
[2020-12-15 14:00] VITALS: BP 148/70
--- NOTE | 2020-12-15 17:33 | IPNPDOC ---
Text Note Date of Service The patient was seen on 12/15/20. NOTE Subjective: Patient is a 70-year-old female who presented to the emergency room with a malfunctioning J-tube. Patient reported that she was getting her feeding infusions Monday night into Monday. . She noted that the full infusion was completed. However, by Monday, she wasnt able to push in any more medications.. She was scheduled to receive a blood transfusion from oncology on that day so she came in to the hospital for that. While she was here she had an evaluation by general surgery to see if any additional interventions could be performed to help alleviate the blockage. Were unable to clear the passageway. The patient did not want to stay in the hospital for further evaluation and decided to go home. She is returned back to the emergency room for further evaluation of her malfunctioning J-tube. Patient has had a recent admission for acute displaced J-tube that was reinserted by interventional radiology. Patient was seen and examined at the bedside. Patient reports that she feels slightly down. Denies any chest pain, shortness breath, palpitations. Has not experience any abdominal pain or diarrhea. Denies any urinary discomfort. Objective: Vitals (See below) General: NAD, lying comfortably in stretcher, elderly HEENT: NC, AT CVS: +S1S2 Lungs: Fair air entry b/l, no appreciable wheezing, rhonchi or rales Abdomen: Soft, nondistended, nontender, J-tube present with surrounding erythema Extremities: LE are without edema, - Calf tenderness Imaging: Abdominal XR 12/12: Jejunostomy tube enters the mid abdomen just to the left midline as on prior study. The tube traverses to the right lower quadrant and the distal end is coiled in the right pelvis. Assessment and plan: Malfunctioning J tube - J-tube seems to have stopped working, Monday, 12/12 - Abdomen remains benign without any tenderness; there is erythema noted - Recently placed J-tube on 12/[address] Petty - Imaging reviewed - Case discussed with Dr. Petty for replacement J-tube; she will discuss with surgery - c/w Dextrose based fluids while NPO / Tube feedings off - Will resume tube feedings with Ensure (3 cans with infusion rate of 60cc/hour) once J tube is functional Gastroesophageal adenocarcinoma - Dx 10/17/[address] Estrada - PET scan completed 11/09/2020 is without scintigraphic evidence of metastasis - Patient has started receiving radiation therapy with Dr. Ty - Chemotherapy with Carbotaxol on hold (re: Leukopenia) - was started on 11/26 - Follows with Dr. Conteh of oncology COVID19 positive - Patient denies any chest pain, shortness breath or palpitations - Remains afebrile - Will continue with supportive care - Patient would benefit from monoclonal antibodies as an outpatient Thrombocytopenia - possibly 2/2 chemotherapy - No evidence of bleeding - Count appear to have gone down after initiating chemotherapy; but have remained similar since 11/30 - Will continue to monitor / follow counts s/p Normocytic anemia - Has received 2 units PRBC transfusion on 12/12 from Oncology - Hemoglobin has trended down from admission. However, still appears to be higher than baseline even after considering the 2 units of transfusion - Will continue to monitor Staph aureus bacteremia - suspected to be 2/2 port site - Blood cultures 12/01 and 12/02: Staph aureus; Ramy negative blood culture was 12/03 - Currently on Cefazolin infusion (End date 12/16) -c/w Cefazolin into port HTN - BP currently well controlled - Will continue to monitor; has not required any IV based medications DLP - Will hold statin NIDDM2 - Patient reports that she has been non-compliant with medications - She was discharged with metformin and long-acting insulin, however, did not want to take any of it - c/w ISS [id number] for now PAD s/p Aorto- bifemoral stent - ASA on hold pending correction of malfunctioning J tube Celiac artery high grade stenosis - ASA on hold pending correction of malfunctioning J tube DVT prophylaxis - c/w Heparin Disposition: - Awaiting intervention from surgery for dysfunctional J tube VS,Fishbone, I+O VS, Fishbone, I+O Laboratory Tests 12/15/20 07:13 Vital Signs Date Time Temp Pulse Resp B/P (MAP) Pulse Ox O2 Delivery O2 Flow Rate FiO2 12/15/20 14:00 98.9 60 16 148/70 (96) 95 Room Air I&O- Last 24 Hours up to 6 AM 12/15/20 06:00 Intake Total 1382 ml Output Total 250 ml Balance 1132 ml THANH ZHOU MD Dec 15, 2020 17:33
[2020-12-15] MEDS: D5W/0.45% SODIUM CHLORIDE 1,000 ML IV SCH (18:19)
[2020-12-15 20:06] VITALS: BP 167/73
[2020-12-15 23:19] VITALS: BP 160/72
[2020-12-16 05:34] VITALS: BP 182/80
[2020-12-16] MEDS: D5W/0.45% SODIUM CHLORIDE 1,000 ML IV SCH (05:34)
[2020-12-16] MEDS: HEPARIN SOD (PORCINE) 5000UNITS/ML 1ML VIAL/SYRINGE SC SCH ×2 (05:34→13:56)
[2020-12-16] MEDS: HumaLOG INSULIN (NovoLOG) PER UNIT SC SCH ×2 (05:35→13:57)
[2020-12-16] MEDS: ceFAZolin SOD 2 GM in IV 1 EA IV SCH ×2 (05:35→13:56)
[2020-12-16 05:44] VITALS: BP 142/74
[2020-12-16 07:49] LABS: BASO % 0.5 % (0.0-1.0); EOS # 0.1 10^3/uL (0.0-0.5); EOS % 2.4 % (0.0-3.0); HEMATOCRIT 35.9 % (36.0-47.0); HEMOGLOBIN 11.7 g/dl (12.0-15.5); LYMPH # 0.1 10^3/uL (1.5-5.0); LYMPH % 4.7 % (24.0-44.0); MEAN CORPUSCULAR HEMOGLOBIN 28.5 pg (27.0-33.0); MEAN CORPUSCULAR HGB CONC 32.6 g/dl (32.0-36.5); MEAN CORPUSCULAR VOLUME 87.6 fl (80.0-96.0); MONO # 0.3 10^3/uL (0.0-0.8); MONO % 12.8 % (2.0-8.0); NEUTROPHILS # 1.7 10^3/uL (1.5-8.5); NEUTROPHILS % 78.7 % (36.0-66.0); WHITE BLOOD COUNT 2.1 10^3/uL (4.0-10.0)
[2020-12-16 07:51] LABS: PLATELET COUNT, AUTOMATED 94 10^3/uL (150-450)
--- NOTE | 2020-12-16 08:18 | ROOPDOC ---
[facility] Report Of Operation Report of Operation DATE OF PROCEDURE: 12/15/20 PREPROCEDURE DIAGNOSES: nonfunctioning jejunostomy feeding tube. POSTPROCEDURE DIAGNOSES: nonfunctioning jejunostomy feeding tube. PROCEDURE: Replacement of jejunostomy feeding tube under fluoroscopy guidance. SURGEON: Spike Estrada MD CREATIVE DEVELOPER: MD ANESTHESIA: . ESTIMATED BLOOD LOSS: minimal. COMPLICATIONS: . REMARKS: . PROCEDURE NOTE: . DESCRIPTION OF PROCEDURE: . SPIKE ESTRADA MD Dec 16, 2020 08:18
[2020-12-16] MEDS: SODIUM CHLORIDE 0.9% INJ 10 ML SYR IV SCH (08:42)
[2020-12-16 09:00] LABS: BLOOD UREA NITROGEN 5 MG/DL (7-18); CALCIUM LEVEL 7.5 MG/DL (8.8-10.2); CARBON DIOXIDE LEVEL 28 MEQ/L (21-32); CHLORIDE LEVEL 105 MEQ/L (98-107); CREATININE FOR GFR 0.57 MG/DL (0.55-1.30); GLOMERULAR FILTRATION RATE > 60.0 (>39); GLUCOSE, FASTING 109 MG/DL (70-100); MAGNESIUM LEVEL 1.7 MG/DL (1.8-2.4); POTASSIUM SERUM 2.9 MEQ/L (3.5-5.1); SODIUM LEVEL 140 MEQ/L (136-145)
[2020-12-16] MEDS ORDERED: BALMEX CREAM 60GM TOP SCH (09:00)
[2020-12-16] MEDS: KCL 10MEQ/100ML SWI (KRUN) 10 MEQ in IV 1 EA IV SCH ×5 (12:00→15:10)
--- NOTE | 2020-12-16 12:18 | IPN ---
PROGRESS NOTE DATE: 12/16/2020 SUBJECTIVE: Krystal is seen in COVID unit. She has incidentally symptomatic COVID infection. She was admitted for a malfunctioning jejunostomy feeding tube. Has a history of gastroesophageal adenocarcinoma, past history of Staph bacteremia from her port, and recently having been admitted here for displaced J-tube that at that time was dealt with by interventional radiology. Per the notes, it looks like Dr. Petty deferred to surgery in this case. The patient was found to be incidentally positive for COVID and should receive monoclonal antibodies though this is prohibited as an inpatient. She is on IV Ancef with an end date of today for Staphylococcus aureus bacteremia. Positive blood cultures on 12/01 and 12/02 with negative blood culture on 12/03. Last night Dr. Estrada replaced her feeding tube under fluoroscopic guidance. Per nursing staff, it is still externally draining a large amount and they are in communication with him. OBJECTIVE: VITAL SIGNS: Afebrile. Vital signs stable with blood pressure 142/74. LUNGS: Clear. HEART: Regular rhythm. ABDOMEN: Soft and nontender. LABORATORY DATA: White count 2.1, hemoglobin 11.7, platelets 94,000. Sodium 140, potassium 2.9, BUN 5, creatinine 0.5, glucose 109, magnesium 1.7. IMPRESSION AND PLAN: 1. Nonfunctioning J-tube. Nursing staff has been in communication with Dr. Estrada. I am deferring all decisions about the J-tube to surgery. He has asked that they start to see whether feeding will pass through this. There is a lot of external drainage already so staff is skeptical about this. We will follow his recommendations. 2. Hypokalemia. Supplemental potassium has been given. 3. Staph bacteremia. This is the last day of IV Ancef. It will be discontinued after today. 4. Hypokalemia. I have ordered potassium runs. 5. Diabetes. Sliding scale insulin with coverage. Hold her outpatient regimen of Levemir and metformin. 6. Hyperlipidemia. Hold her rosuvastatin 5 mg daily until we find out how well the feeding tube is working.
--- NOTE | 2020-12-16 15:07 | DSES ---
DISCHARGE SUMMARY DATE OF ADMISSION: 12/13/2020 DATE OF DISCHARGE: 12/16/2020 PRINCIPAL DIAGNOSIS: Malfunctioning jejunostomy feeding tube. HISTORY: Krystal Olivas has gastroesophageal adenocarcinoma, on her last few days of being treated with intravenous (IV) Ancef for Staphylococcus bacteria. Was admitted with displaced jejunostomy (J) tube. Details in history and physical from admission. HOSPITAL COURSE: There was some discussion back and forth between Dr. Petty from interventional radiology and surgery, and eventually Dr. Estrada took her to the operating room (OR) last night and manipulated the tube. This morning it still was not functioning normally, bu the came to the floor and manipulated it. It seems to be functioning normally. He think that she can be discharged. She has some hypokalemia today, for which she declined treatment due to previous problems of not tolerating intravenous potassium. Today was her last day of IV Ancef. It is being discontinued on discharge. Labs were all dictated in my earlier note today. DISPOSITION: She is discharged home. Followup with her primary care provider in a week. Followup with [facility] previously scheduled next week. Activity is as tolerated. She will restart her tube feedings as before. MEDICATIONS: - aspirin 81 mg a day - atenolol 25 mg daily - vitamin B12 at 2500 mcg daily - ferrous sulfate 325 mg daily - Lantus insulin 5 units twice a day - metformin 1000 mg twice a day - Crestor 5 mg daily Today was her last day of IV Ancef. No pending labs at time of dictation.
[2020-12-16 16:35] VITALS: BP 157/71
[2020-12-17] MEDS ORDERED: LIDO2.5C15 TOP (08:46)
== END 2020-12-16 17:07 | disposition home health service (06) | DRG 394 ==
LOC: M ED 15:16 → M ED INP 16:42 → ENRESERV 17:09 → M 4MAIN 12-14 08:23
PROVIDERS: ADMIT Internal Medicine; ATTEND Family Medicine
PROC: 0D20XUZ Change Feeding Device in Upper Intestinal Tract, External Approach (ICD-10-PCS; principal; 2020-12-15 16:30)
DX: K94.23 Gastrostomy malfunction (principal); C15.5 Malignant neoplasm of lower third of esophagus; R78.81 Bacteremia; I77.4 Celiac artery compression syndrome; K94.13 Enterostomy malfunction; Z88.0 Allergy status to penicillin; Z91.013 Allergy to seafood; I10 Essential (primary) hypertension; E11.51 Type 2 diabetes mellitus with diabetic peripheral angiopathy without gangrene; E87.6 Hypokalemia; Z79.82 Long term (current) use of aspirin; Z79.899 Other long term (current) drug therapy; Z98.41 Cataract extraction status, right eye; Z98.42 Cataract extraction status, left eye; Z92.3 Personal history of irradiation; Z92.21 Personal history of antineoplastic chemotherapy; Z79.4 Long term (current) use of insulin; D69.6 Thrombocytopenia, unspecified; D64.9 Anemia, unspecified; E78.5 Hyperlipidemia, unspecified

== ENCOUNTER 2020-12-25 08:23 | Outpatient (RCR) | payer MEDICARE, OTHER ==
[~2020-12-25 08:23] MED LIST changes: +CYAN2500 SL; +FERR1TAB8 PO; +ISOVUE-370 76% 100ML VIAL As Ordered ONE; +LIDO2.5C15 TOP; +METF-877 PO; +POTA20EL PO; +fentaNYL 100 MCG/2 ML INJECTION (J3010) As Ordered ONE
== END 2021-01-01 ==
LOC: M ONCR 08:23
PROVIDERS: ATTEND General Practice
DX: C15.5 Malignant neoplasm of lower third of esophagus (principal)
CPT/HCPCS: 77336; 77387; 77412; J3010; Q9967

== ENCOUNTER 2021-01-04 14:14 | Observation (INO) | payer MEDICARE, OTHER ==
[~2021-01-04] VITALS: Ht 160 cm; Wt 49.7 kg
[~2021-01-04 14:14] MED LIST changes: -ISOVUE-370 76% 100ML VIAL As Ordered ONE; -fentaNYL 100 MCG/2 ML INJECTION (J3010) As Ordered ONE
[2021-01-04] MEDS ORDERED: FERR5ELX PO (14:51)
[2021-01-04] MEDS ORDERED: NS 500 ML IV ONE (15:45)
--- NOTE | 2021-01-04 16:11 | REP ---
INDICATION: CHEST PAIN. COMPARISON: 10/25/2018. TECHNIQUE: Single portable AP view of the chest was performed. FINDINGS: There is no acute infiltrate. The heart is normal in size. There is calcification of the thoracic aorta. The mediastinal silhouette is otherwise unremarkable. Right central venous catheter is seen with the tip in the superior vena cava. IMPRESSION: No acute pulmonary disease. <Electronically signed by Mir Escobedo > 01/04/21 [id number]
[2021-01-04] MEDS ORDERED: EMLA CREAM 5GM TUBE (LIDOCAINE/PRILOCAINE) TOP ONE (16:25)
[2021-01-04 16:59] LABS: ALBUMIN 2.7 GM/DL (3.2-5.2); ALT/SGPT 11 U/L (12-78); AMYLASE 18 U/L (25-115); BILIRUBIN,DIRECT 0.1 MG/DL (0.0-0.2); BILIRUBIN,TOTAL 0.4 MG/DL (0.2-1.0); BLOOD UREA NITROGEN 25 MG/DL (7-18); CARBON DIOXIDE LEVEL 28 MEQ/L (21-32); CHLORIDE LEVEL 110 MEQ/L (98-107); CK-MB VALUE MASS < 1.0 NG/ML (<3.6); CPK CREATINE PHOSPHOKINASE 24 U/L (26-192); CREATININE FOR GFR 1.01 MG/DL (0.55-1.30); FREE T4 1.36 NG/DL (0.76-1.46); GLOMERULAR FILTRATION RATE 57.4 (>39); GLUCOSE, FASTING 338 MG/DL (70-100); LIPASE 83 U/L (73-393); MB/CK RELATIVE INDEX 4.17 (< OR =4); NT-PRO BNP 540 PG/ML (<125); POTASSIUM SERUM 4.2 MEQ/L (3.5-5.1); SODIUM LEVEL 144 MEQ/L (136-145); THYROID STIMULATING HORMONE 0.732 uIU/ML (0.358-3.740); TOTAL PROTEIN 6.1 GM/DL (6.4-8.2); TROPONIN I < 0.02 NG/ML (< 0.10)
[2021-01-04 17:20] LABS: BASO % 0.4 % (0.0-1.0); EOS % 0.4 % (0.0-3.0); HEMATOCRIT 35.3 % (36.0-47.0); HEMOGLOBIN 11.1 g/dl (12.0-15.5); LYMPH # 0.1 10^3/uL (1.5-5.0); LYMPH % 1.6 % (24.0-44.0); MEAN CORPUSCULAR HEMOGLOBIN 28.2 pg (27.0-33.0); MEAN CORPUSCULAR HGB CONC 31.4 g/dl (32.0-36.5); MEAN CORPUSCULAR VOLUME 89.6 fl (80.0-96.0); MONO # 0.4 10^3/uL (0.0-0.8); MONO % 7.3 % (2.0-8.0); NEUTROPHILS # 4.6 10^3/uL (1.5-8.5); NEUTROPHILS % 89.7 % (36.0-66.0); PLATELET COUNT, AUTOMATED 173 10^3/uL (150-450); RED BLOOD COUNT 3.94 10^6/uL (4.00-5.40); WHITE BLOOD COUNT 5.1 10^3/uL (4.0-10.0)
[2021-01-04] MEDS ORDERED: NS 1,000 ML IV ONE (18:40)
[2021-01-04] MEDS ORDERED: ISOVUE-370 76% 100ML VIAL As Ordered ONE (19:13)
[2021-01-04] MEDS ORDERED: GLUCAGON INJ 1MG VIAL SC PRN (19:25)
[2021-01-04] MEDS ORDERED: EMLA CREAM 5GM TUBE (LIDOCAINE/PRILOCAINE) TOP SCH (19:25)
[2021-01-04] MEDS ORDERED: ACETAMINOPHEN TAB 650MG DOSE (2X325MG) PEG PRN (19:25)
[2021-01-04] MEDS ORDERED: MOM 30ML SUSPENSION UDC PO PRN (19:25)
[2021-01-04] MEDS ORDERED: GLUCOSE 4GM CHEW TABLET PO PRN (19:25)
[2021-01-04] MEDS: PANTOPRAZOLE 40MG VIAL (C9113 PER 1) IV SCH (19:25)
[2021-01-04] MEDS ORDERED: DEXTROSE 50% 50 ML SYRINGE IV PRN (19:25)
[2021-01-04] MEDS ORDERED: ONDANSETRON 4MG/2ML VIAL IV PRN (19:25)
[2021-01-04] MEDS ORDERED: PILL CUTTER 1 EACH XX PRN (19:50)
--- NOTE | 2021-01-04 19:50 | ECGEPIP ---
[facility] - ED Test Date: 2021-01-04 Pat Name: SEBASTIAN BAKER Department: Room: - Gender: Female Economics Teacher: LAURY : 1950 Requested By: Katherine Scott Order Number: [id number] Reading MD: Katherine Scott Measurements Intervals [place] Rate: 132 P: 75 SC: 128 QRS: 65 QRSD: 62 T: -49 QT: 306 QTc: 453 Interpretive Statements Sinus tachycardia Nonspecific ST and T wave abnormality Baseline artifact may affect reading Baseline wandering may affect reading cw 11/29/[address] T wave changes Electronically Signed on 01-04-2021 19:50:00 EDT by Katherine Scott
--- NOTE | 2021-01-04 20:48 | HPEPDOC ---
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 Patient underwent chemotherapy treatment on 12/31 and since then has had nausea, vomiting and diarrhea. These symptoms have improved according to patient upon my evaluation. Patient states that she mostly just feels weak and tired, but she still has some burning epigastric pain. Patient does admit to once episode of syncope yesterday, but states that it was after sitting up rapidly in bed. Patient denies chest pain, sob, headaches, dizziness, lightheadedness, paresthesias, diplopia, dysarthria, fever, chills, dark stools, dysuria, dislodged peg tube. ] PAST MEDICAL HISTORY: 1. [See HPI PAST SURGICAL HISTORY: 1. [B/L cataract removal]. 2. [Appendectomy]. 3. [Abd tumor resection 4. PEG tube placement 5. Hysterectomy]. SOCIAL HISTORY: Tobacco use:[former smoker] ETOH: [denies] Illicit drug use: [denies] FAMILY HISTORY: Father: [mi, cva] Brother: mi ALLERGIES: Please see below. REVIEW OF SYSTEMS: CONSTITUTIONAL: [See HPI]. HEENT: [Denies uri sx]. CARDIOVASCULAR: [See HPI]. RESPIRATORY: [See HPI]. GASTROINTESTINAL: [See HPI]. GENITOURINARY: [See HPI]. SKIN: [Denies rash]. MUSCULOSKELETAL: [Denies acute back, joint pain]. NEUROLOGICAL: [See HPI]. ENDOCRINE: [hx of DM]. HEMATOLOGIC/LYMPHATIC: [Denies easy bruising]. HOME MEDICATIONS: Please see below. PHYSICAL EXAMINATION: VITAL SIGNS: Please see below GENERAL APPEARANCE: [This is a frail appearing 70 year old female. She is laying in bed in no respiratory distress.]. HEENT: [No mass or lesion. EOMI. No scleral icterus. Oral mucosa dry.]. CARDIOVASCULAR: [Tachy rate, normal rhythm. No murmurs, rubs, gallops]. LUNGS: [Good air flow auscultated. No wheezing, rales, rhonchi.]. ABDOMEN: [Left sided PEG tube inplace without drainage, surrounding erythema. Abdomen soft, mildly tender diffusely.]. MUSCULOSKELETAL: [No joint deformity]. EXTREMITIES: [No peripheral edema or overlying skin changes. Pulses palpable]. NEUROLOGICAL: [Sensation intact. Strength 5/5 in all extremities b/l. Speech clear. A+Ox3. No focal deficits]. PSYCHIATRIC: [Mood and affect appear appropriate]. LABORATORY DATA: See below. IMAGING: [Chest x-ray: FINDINGS: There is no acute infiltrate. The heart is normal in size. There is calcification of the thoracic aorta. The mediastinal silhouette is otherwise unremarkable. Right central venous catheter is seen with the tip in the superior vena cava. IMPRESSION: No acute pulmonary disease.] MICROBIOLOGY: Please see below. ASSESSMENT: [This is a 70 year old female who was brought to the ED by daughter after home health aid found abnormal vitals and hyperglycemia. Patient found to be tachy up to 150s and 160s in the ED with ekg showing sinus tachycardia, hypertensive with the 160s systolic and 90s diastolic. Patient also found to have elevated cr of 1 up from baseline of .6. Patient likely acutely dehydrated due to vomiting and diarrhea secondary to chemotherapy.]. . PLAN: 1. [Dehydration - Secondary to vomiting, diarrhea. Likely the cause of patient's tachycardia, increased cr. other ddx includes pe - CTA chest ordered. - Patient received 1.5L ns bolus in the ED - Will initiate maintenance IVF for rehydration - Will begin zofran for n/v - Will begin protonix 40mg iv daily d/t vomiting, epigastric pian - Will repeat renal function tomorrow - Admit to med surg on tele, will continue tele until tachycardia resolves 2. GE ca with peg tube placement - PEG tube in place - Patient underwent last chemo treatment on 12/31 3. DM2 - sliding scale insulin, hypoglycemia protocol 4. HTN - continue atenolol 5. HLD - continue rosuvastatin DVT prophylaxis - lovenox]. Vital Signs Vital Signs Date Time Temp Pulse Resp B/P (MAP) Pulse Ox O2 Delivery O2 Flow Rate FiO2 01/04/21 18:15 146/66 (92) 01/04/21 18:14 114 96 01/04/21 15:54 97.8 16 Room Air Laboratory Data Labs 24H Laboratory Tests 2 01/04/21 16:09: Immature Granulocyte % (Auto) 0.6, Neutrophils (%) (Auto) 89.7H, Lymphocytes (%) (Auto) 1.6L, Monocytes (%) (Auto) 7.3, Eosinophils (%) (Auto) 0.4, Basophils (%) (Auto) 0.4, Neutrophils # (Auto) 4.6, Lymphocytes # (Auto) 0.1L, Monocytes # ( Auto) 0.4, Eosinophils # (Auto) 0.0, Basophils # (Auto) 0.0, Nucleated Red Blood Cells % (auto) 0.0, Anion Gap 6L, Glomerular Filtration Rate 57.4, Lactic Acid Level 1.7, Calcium Level 9.0, Total Bilirubin 0.4, Direct Bilirubin 0.1, Aspartate Amino Transf (AST/SGOT) 9, Alanine Aminotransferase (ALT/SGPT) 11L, Alkaline Phosphatase 67, Total Creatine Kinase 24L, Creatine Kinase MB < 1.0, Creatine Kinase MB Relative Index 4.17H, Troponin I < 0.02, IF-Fpv-B-Type Natriuretic Peptide 540H, Total Protein 6.1L, Albumin 2.7L, Albumin/Globulin Ratio 0.8L, Amylase Level 18L, Lipase 83, Thyroid Stimulating Hormone (TSH) 0.732, Free Thyroxine 1.36 CBC/BMP Laboratory Tests 01/04/21 16:09 Microbiology Microbiology 01/04/21 Blood Culture, Received Pending 01/04/21 Blood Culture, Received Pending Home Medications Scheduled Aspirin (Aspirin EC) 81 Mg Tablet.dr, 81 MG PO DAILY Atenolol (Atenolol) 25 Mg Tablet, 25 MG PO DAILY Cyanocobalamin (Vitamin B-12) (Vitamin B-12) 2,500 Mcg Tab.subl, 2,500 MCG SL DAILY Ferrous Sulfate (Ferrous Sulfate) 220 Mg/5 Ml Elixir, 5 ML PO DAILY Lidocaine/Prilocaine (Lidocaine-Prilocaine Cream) 2.5%/2.5% Cream..g., 1 APLCT TOP ASDIRECTED Metformin HCl (Metformin HCl) 1,000 Mg Tablet, 1,000 MG PO BID Rosuvastatin Calcium (Crestor) 5 Mg Tablet, 5 MG PO DAILY Allergies Coded Allergies: shellfish derived (Verified Allergy, Intermediate, rash, vomiting, 10/17/20) Penicillins (Verified Adverse Reaction, Unknown, hyperventilation, 10/17/20) A-FIB/CHADSVASC A-FIB History Current/History of A-Fib/PAF?: No ANNE ALDRIDGE January 04, 2021 20:48
[2021-01-04] MEDS: HumaLOG INSULIN (NovoLOG) PER UNIT SC SCH (21:00)
[2021-01-04] MEDS: DOCUSATE SOD LIQ 100MG/10ML UDC PO SCH (21:00)
--- NOTE | 2021-01-04 21:01 | REPVR ---
PROCEDURE INFORMATION: Exam: CTA Chest With Contrast Exam date and time: 01/04/2021 7:54 PM Age: 70 years old Clinical indication: Shortness of breath; Additional info: RO PE. History of distal esophageal adenocarcinoma. TECHNIQUE: Imaging protocol: Computed tomographic angiography of the chest with contrast. 3D rendering (Not supervised by radiologist): MIP and/or 3D reconstructed images were created by the technologist. Radiation optimization: All CT scans at this facility use at least one of these dose optimization techniques: automated exposure control; mA and/or kV adjustment per patient size (includes targeted exams where dose is matched to clinical indication); or iterative reconstruction. Contrast material: ISOVUE 370; Contrast volume: 100 ml; Contrast route: INTRAVENOUS (IV); COMPARISON: PT PET/CT Skull/mid thigh 11/09/2020 10:43 AM FINDINGS: Tubes, catheters and devices: There is a right internal jugular Port-A-Cath terminating in the superior vena cava. Pulmonary arteries: No pulmonary embolism. Aorta: The thoracic aorta is intact and patent. There is no thoracic aortic aneurysm, pseudoaneurysm, penetrating atherosclerotic ulcer, intramural hematoma, or dissection. There are extensive atherosclerotic calcifications. Great vessels off aortic arch: The brachiocephalic artery, imaged proximal portions of the common carotid arteries, imaged proximal portions of the vertebral arteries, and subclavian arteries are intact. No stenosis or occlusion of these vessels is noted. Thyroid: There is a 1.9 cm nodule in the mid to lower pole of the right lobe of the thyroid gland, which is stable compared to the prior CT chest on 10/17/2020 (image 38 of the coronal series 403). Trachea: Normal. Bronchial tree: Normal. Lungs: There is a 2 mm solid pulmonary nodule in the right lower lobe (image 79 of the axial series 402), a 3 mm solid pulmonary nodule in the right upper lobe (image 28 of the axial series 402), and a 3 mm juxtapleural nodule along the right major fissure projecting into the right upper lobe (image 22 of the sagittal MIP series 406), which are unchanged compared to the prior CT chest on 10/17/2020. There is mild atelectasis in the periphery of the right middle lobe and left lower lobe. No lung consolidation is noted. Pleural spaces: Normal. No pneumothorax or pleural effusion. Heart: No cardiomegaly. No pericardial effusion. The ratio of the diameter of the right ventricle to the diameter of the left ventricle measures less than 1, which is within normal limits and there is no evidence for a right ventricular strain. There are coronary artery calcifications. Mediastinal space: There is a distal esophageal mass that is stable compared to the prior CT chest on 10/17/2020 and there is thickening of the wall of the distal esophagus. There is fluid in the thoracic esophagus, which can be seen with gastroesophageal reflux. No pneumomediastinum or mediastinal fluid collection is noted. Lymph nodes: No enlarged lymph nodes. Adrenal glands: There is a 1.5 cm right adrenal nodule that measures 27 Hounsfield units and a 1.9 cm left adrenal nodule that measures 20 Hounsfield units (images 176 and 187 of the axial series 401), which are stable compared to the prior CT chest on 10/17/2020. Bones/joints: There is no fracture or dislocation. No suspicious osteolytic or osteoblastic lesion. There are endplate spurs in the thoracic spine. The bones have a demineralized appearance. Soft tissues: Unremarkable. No soft tissue fluid collection. IMPRESSION: 1. No acute findings in the chest. No pulmonary embolism. 2. Solid pulmonary nodules measuring up to 3 mm, which are stable compared to the prior CT chest on 10/17/2020. Fleischner Society follow up recommendations for incidental nodules are not indicated. Follow up per the patient's medical condition. 3. Distal esophageal mass, which is stable compared to the prior CT chest on 10/17/2020. 4. Evidence for gastroesophageal reflux. 5. Bilateral adrenal nodules, which are stable compared to the prior CT chest on 10/17/2020. 6. 1.9 cm nodule in the mid to lower pole of the right lobe of the thyroid gland, which is stable compared to the prior CT chest on 10/17/2020. See management guidelines below. COMMENTS: Consistent with the [place]'s Incidental Findings Committee white paper (J Am Ra Radiol 2015): In patients aged 35 years and older with an incidental thyroid nodule equal to or greater than 1.[address], MRI or extrathyroidal US, further evaluation with dedicated thyroid US is recommended for patients with normal life expectancy and without comorbidities. For smaller nodules without suspicious features, no further evaluation or follow up is recommended. Electronically signed by: Jose Patrick On 01/04/2021 21:00:42 PM
[2021-01-05] MEDS: NS 1,000 ML IV SCH ×2 (04:18→09:39)
[2021-01-05] MEDS: DOCUSATE SOD LIQ 100MG/10ML UDC PO SCH ×2 (09:00→21:00)
[2021-01-05] MEDS: CYANOCOBALAMIN 500 MCG TAB PEG SCH (09:38)
[2021-01-05] MEDS: ROSUVASTATIN 10 MG TAB (CRESTOR) PEG SCH (09:38)
[2021-01-05] MEDS: FERROUS SULFATE 300MG/5ML UDC LIQUID PEG SCH (09:38)
[2021-01-05] MEDS: PANTOPRAZOLE 40MG VIAL (C9113 PER 1) IV SCH (09:39)
[2021-01-05] MEDS: atenoloL 25 MG TAB PEG SCH (09:39)
[2021-01-05] MEDS: ASPIRIN 81MG ENTERIC TABLET PO SCH (09:39)
[2021-01-05] MEDS: ENOXAPARIN 30MG/0.3ML SYRINGE (J1650 PER 10MG) SC SCH (09:39)
[2021-01-05] MEDS: HumaLOG INSULIN (NovoLOG) PER UNIT SC SCH ×4 (09:48→21:00)
[2021-01-05 15:58] VITALS: BP 136/66
--- NOTE | 2021-01-05 17:03 | IPNPDOC ---
Subjective Date Seen The patient was seen on 01/05/21. Subjective Chief Complaint/HPI No diarrhea after admission, no vomiting, has some nausea still. No abdominal pain. Objective Physical Examination General Exam: Positive: Alert, Cooperative, No Acute Distress Eye Exam: Positive: PERRLA, Conjunctiva & lids normal, EOMI; Negative: Sclera icteric ENT Exam: Positive: Atraumatic, Mucous membr. moist/pink, Pharynx Normal Chest Exam: Positive: Clear to auscultation, Normal air movement Heart Exam: Positive: Rate Normal, Regular Rhythm, Normal S1, Normal S2; Negative: Murmurs, Rubs Abdomen Exam: Positive: Normal bowel sounds, Soft; Negative: Tenderness Extremity Exam: Negative: Clubbing, Cyanosis, Edema Assessment /Plan Assessment This is a 70 year old female with PMH of adenocarcinoma of lower end of Esophagus finished RT and chemotherapy last week, DM, HTN, Malnutrition who was brought to the ED by daughter after home health aid found abnormal vitals and hyperglycemia. Patient found to be tachy up to 150s and 160s in the ED with ekg showing sinus tachycardia, hypertensive with the 160s systolic and 90s ann stolic. Patient also found to have elevated cr of 1 up from baseline of .6. Patient likely acutely dehydrated due to vomiting and diarrhea secondary to chemotherapy. Dehydration Secondary to vomiting, diarrhea improving. restart Jejunostomy tube feeding continue PPI and zofran. Gastroesophageal junction ca with peg tube placement Patient underwent last chemo treatment on 12/[address] showing fluid in the thoracic esophagus NPO. allow only to suck on ice chips GERD continue PPI. DM2 sliding scale insulin, hypoglycemia protocol HTN continue atenolol HLD continue rosuvastatin Malnutrition BMI of 19.4 with loss of more than 10 lbs in 2 months. Thyroid nodule stable 1.9 cm, right lobe Pulmonary nodules 3 on the right Bilateral adrenal nodules stable. DVT prophylaxis lovenox]. Plan/VTE VTE Prophylaxis Ordered?: Yes VS, I&O, 24H, Fishbone Vital Signs/I&O Vital Signs Date Time Temp Pulse Resp B/P (MAP) Pulse Ox O2 Delivery O2 Flow Rate FiO2 01/05/21 15:58 97.8 74 18 136/66 (89) 98 Room Air I&O- Last 24 Hours up to 6 AM 01/05/21 06:00 Intake Total 1500 ml Balance 1500 ml Laboratory Data 24H LABS Laboratory Tests 2 01/04/21 22:39: Bedside Glucose (Misc Panel) 247H 01/05/21 07:26: Bedside Glucose (Misc Panel) 194H 01/05/21 11:58: Bedside Glucose (Misc Panel) 139H Microbiology Microbiology 01/04/21 Blood Culture, Received Pending 01/04/21 Blood Culture - Preliminary, Resulted No growth after 24 hours . All specim... AIDAN ANDRES MD January 05, 2021 17:03
[2021-01-05] MEDS ORDERED: NS 1,000 ML IV SCH (21:10)
[2021-01-05 22:00] VITALS: BP 136/67
[2021-01-06 06:00] VITALS: BP 133/64
[2021-01-06 06:10] LABS: EOS # 0.1 10^3/uL (0.0-0.5); EOS % 1.9 % (0.0-3.0); HEMATOCRIT 29.3 % (36.0-47.0); HEMOGLOBIN 9.2 g/dl (12.0-15.5); LYMPH # 0.1 10^3/uL (1.5-5.0); LYMPH % 3.9 % (24.0-44.0); MEAN CORPUSCULAR HEMOGLOBIN 28.4 pg (27.0-33.0); MEAN CORPUSCULAR HGB CONC 31.4 g/dl (32.0-36.5); MEAN CORPUSCULAR VOLUME 90.4 fl (80.0-96.0); MONO # 0.3 10^3/uL (0.0-0.8); MONO % 8.4 % (2.0-8.0); NEUTROPHILS # 2.6 10^3/uL (1.5-8.5); NEUTROPHILS % 84.2 % (36.0-66.0); PLATELET COUNT, AUTOMATED 139 10^3/uL (150-450); RED BLOOD COUNT 3.24 10^6/uL (4.00-5.40); WHITE BLOOD COUNT 3.1 10^3/uL (4.0-10.0)
[2021-01-06 06:32] LABS: BLOOD UREA NITROGEN 14 MG/DL (7-18); CALCIUM LEVEL 8.2 MG/DL (8.8-10.2); CARBON DIOXIDE LEVEL 26 MEQ/L (21-32); CHLORIDE LEVEL 116 MEQ/L (98-107); CREATININE FOR GFR 0.63 MG/DL (0.55-1.30); GLOMERULAR FILTRATION RATE > 60.0 (>39); GLUCOSE, FASTING 258 MG/DL (70-100); POTASSIUM SERUM 4.1 MEQ/L (3.5-5.1); SODIUM LEVEL 147 MEQ/L (136-145)
[2021-01-06] MEDS ORDERED: NEXI40GR GT (08:01)
[2021-01-06] MEDS: ENOXAPARIN 30MG/0.3ML SYRINGE (J1650 PER 10MG) SC SCH (09:46)
[2021-01-06] MEDS: HumaLOG INSULIN (NovoLOG) PER UNIT SC SCH (09:46)
[2021-01-06] MEDS: DOCUSATE SOD LIQ 100MG/10ML UDC PO SCH (09:47)
[2021-01-06] MEDS: ASPIRIN 81MG ENTERIC TABLET PO SCH (09:47)
[2021-01-06] MEDS: CYANOCOBALAMIN 500 MCG TAB PEG SCH (09:47)
[2021-01-06] MEDS: FERROUS SULFATE 300MG/5ML UDC LIQUID PEG SCH (09:47)
[2021-01-06] MEDS: PANTOPRAZOLE 40MG VIAL (C9113 PER 1) IV SCH (09:47)
[2021-01-06 09:48] VITALS: BP 116/51
[2021-01-06] MEDS: ROSUVASTATIN 10 MG TAB (CRESTOR) PEG SCH (09:48)
[2021-01-06] MEDS: atenoloL 25 MG TAB PEG SCH (09:48)
[2021-01-06] MEDS ORDERED: SODIUM CHLORIDE 0.9% INJ 10 ML SYR IV PRN (11:10)
--- NOTE | 2021-01-06 19:54 | IPNPDOC ---
Subjective Date Seen The patient was seen on 01/06/21. Subjective Chief Complaint/HPI Feeling well today. No abdominal pain , no nausea or diarrhea. Ready to go home. Objective Physical Examination General Exam: Positive: Alert, Cooperative, No Acute Distress Eye Exam: Positive: PERRLA, Conjunctiva & lids normal, EOMI; Negative: Sclera icteric ENT Exam: Positive: Atraumatic, Mucous membr. moist/pink, Pharynx Normal Chest Exam: Positive: Clear to auscultation, Normal air movement Heart Exam: Positive: Rate Normal, Regular Rhythm, Normal S1, Normal S2; Negative: Murmurs, Rubs Abdomen Exam: Positive: Normal bowel sounds, Soft; Negative: Tenderness Extremity Exam: Negative: Clubbing, Cyanosis, Edema Assessment /Plan Assessment This is a 70 year old female with PMH of adenocarcinoma of lower end of Esophag us finished RT and chemotherapy last week, DM, HTN, Malnutrition who was brought to the ED by daughter after home health aid found abnormal vitals and hyperglycemia. Patient found to be tachy up to 150s and 160s in the ED with ekg showing sinus tachycardia, hypertensive with the 160s systolic and 90s diastolic. Patient also found to have elevated cr of 1 up from baseline of 0.6. Patient likely acutely dehydrated due to vomiting and diarrhea secondary to chemotherapy. Dehydration Secondary to vomiting, diarrhea improved cont Jejunostomy tube feeding continue PPI Gastroesophageal junction ca with peg tube placement Patient underwent last chemo treatment on 12/[address] showing fluid in the thoracic esophagus NPO. allow only to suck on ice chips GERD omeprazole susp DM2 home meds HTN continue atenolol HLD continue rosuvastatin Malnutrition BMI of 19.4 with loss of more than 10 lbs in 2 months. Thyroid nodule stable 1.9 cm, right lobe Pulmonary nodules 3 on the right Bilateral adrenal nodules stable. Disposition: Discharge Home, Follow up with oncology. Plan/VTE VTE Prophylaxis Ordered?: Yes VS, I&O, 24H, [place] Vital Signs/I&O Vital Signs Date Time Temp Pulse Resp B/P (MAP) Pulse Ox O2 Delivery O2 Flow Rate FiO2 01/06/21 09:48 90 116/51 01/06/21 06:00 98.2 18 94 Room Air I&O- Last 24 Hours up to 6 AM 01/06/21 07:00 Intake Total 908 ml Output Total 550 ml Balance 358 ml Laboratory Data 24H LABS Laboratory Tests 2 01/05/21 21:03: Bedside Glucose (Misc Panel) 97 01/06/21 05:42: Immature Granulocyte % (Auto) 0.6, Neutrophils (%) (Auto) 84.2H, Lymphocytes (%) (Auto) 3.9L, Monocytes (%) (Auto) 8.4H, Eosinophils (%) (Auto) 1.9, Basophils (%) (Auto) 1.0, Neutrophils # (Auto) 2.6, Lymphocytes # (Auto) 0.1L, Monocytes # (Auto) 0.3, Eosinophils # (Auto) 0.1, Basophils # (Auto) 0.0, Nucleated Red Blood Cells % (auto) 0.0, Anion Gap 5L, Glomerular Filtration Rate > 60.0, Calcium Level 8.2L 01/06/21 11:34: Bedside Glucose (Misc Panel) 110 CBC/BMP Laboratory Tests 01/06/21 05:42 Microbiology Microbiology 01/04/21 Blood Culture - Preliminary, Resulted No Growth after 48 hours. All Specime... 01/04/21 Blood Culture - Preliminary, Resulted No Growth after 48 hours. All Specime... AIDAN ANDRES MD January 06, 2021 19:54
[2021-01-07] MEDS ORDERED: SODIUM CHLORIDE 0.9% INJ 10 ML SYR IV SCH (09:00)
== END 2021-01-06 12:30 | disposition home or self-care (01) ==
LOC: M ED 14:14 → M ED INP 19:24 → ENRESERV 01-05 14:34 → M MSPAV 01-05 15:58
PROVIDERS: ADMIT Family Medicine; ATTEND Family Medicine
DX: E86.0 Dehydration (principal); C15.5 Malignant neoplasm of lower third of esophagus; Z93.1 Gastrostomy status; I10 Essential (primary) hypertension; E11.9 Type 2 diabetes mellitus without complications; E43 Unspecified severe protein-calorie malnutrition; R00.0 Tachycardia, unspecified; Z92.21 Personal history of antineoplastic chemotherapy; Z92.3 Personal history of irradiation; Z79.82 Long term (current) use of aspirin; Z79.899 Other long term (current) drug therapy; Z88.0 Allergy status to penicillin; Z91.013 Allergy to seafood; E78.49 Other hyperlipidemia; Z87.891 Personal history of nicotine dependence
CPT/HCPCS: 36415; 71045; 71275; 80048; 80076; 82150; 82550; 82553; 83605; 83690; 83880; 84439; 84443; 84484; 85025; 87040; 93005; 93041; 96361; 96372; 96374; 96375; 96376; 99285; C9113; G0378; J1642; J1650; J2405; Q9967

== ENCOUNTER 2021-01-08 15:35 | Emergency (ER) | payer MEDICARE, OTHER ==
[~2021-01-08] VITALS: Ht 160 cm; Wt 48.2 kg
[~2021-01-08 15:35] MED LIST changes: +FERR5ELX PO; +LIDO1CRE42 TOP; -LIDO2.5C15 TOP; +NEXI40GR GT
[2021-01-08] MEDS ORDERED: LANTINJ4 (15:50)
[2021-01-08 17:51] VITALS: BP 106/62
== END 2021-01-08 17:53 | disposition home or self-care (01) ==
LOC: M ED 15:35
DX: T85.638A Leakage of other specified internal prosthetic devices, implants and grafts, initial encounter (principal); T85.528A Displacement of other gastrointestinal prosthetic devices, implants and grafts, initial encounter; Z79.82 Long term (current) use of aspirin; Z79.4 Long term (current) use of insulin; Z79.899 Other long term (current) drug therapy; Z88.0 Allergy status to penicillin; Z91.013 Allergy to seafood

== ENCOUNTER 2021-02-04 15:59 | Emergency (ER) | payer MEDICARE, OTHER ==
[~2021-02-04] VITALS: Ht 160 cm; Wt 46.7 kg
[~2021-02-04 15:59] MED LIST changes: +LANTINJ4
[2021-02-04] MEDS ORDERED: SCOPOLAMINE (18:39)
[2021-02-04 22:25] VITALS: BP 112/57
== END 2021-02-04 22:56 | disposition home or self-care (01) ==
LOC: M ED 15:59
DX: K94.23 Gastrostomy malfunction (principal); C15.5 Malignant neoplasm of lower third of esophagus; I10 Essential (primary) hypertension; E11.9 Type 2 diabetes mellitus without complications; Z87.891 Personal history of nicotine dependence; Z88.0 Allergy status to penicillin; Z91.013 Allergy to seafood; Z79.82 Long term (current) use of aspirin; Z79.84 Long term (current) use of oral hypoglycemic drugs; Z79.899 Other long term (current) drug therapy

== ENCOUNTER → 2021-03-09 | Outpatient (REF) | payer MEDICARE, OTHER ==
[~2021-03-09] MED LIST changes: +SCOPOLAMINE
[2021-03-09 15:17] LABS: ALBUMIN 3.2 GM/DL (3.2-5.2); PREALBUMIN 18.4 MG/DL (20.0-40.0)
== END ==
LOC: M SHH 14:16
PROVIDERS: ATTEND Surgery
DX: C15.5 Malignant neoplasm of lower third of esophagus (principal)

== ENCOUNTER → 2021-03-09 | Outpatient (REF) | payer MEDICARE, OTHER ==
[2021-03-09 18:02] LABS: HEMOGLOBIN A1c 5.7 %
== END ==
LOC: M SHH 15:05
PROVIDERS: ATTEND Family Medicine
DX: E11.36 Type 2 diabetes mellitus with diabetic cataract (principal); C15.5 Malignant neoplasm of lower third of esophagus

== ENCOUNTER → 2021-05-03 | Outpatient (CLI) | payer MEDICARE, OTHER ==
--- NOTE | 2021-05-03 11:19 | REP ---
INDICATION: DIAGNOSING ESOPHAGEAL CANCER. Two weeks post esophageal stent placement. Feeding tube. Status post chemo and radiation therapy. COMPARISON: Comparison PET-CT study November 09, 2020. TECHNIQUE: Forty-five minutes following the intravenous injection of a 8.44 mCi dose of F-18 FDG, three-dimensional PET scintigraphy is acquired from the skull base to the proximal thighs. Triplanar noncontrast CT scanning is acquired through the same anatomic range for attenuation correction, and image registration with scan parameters optimized to minimize radiation exposure to the patient. PET scintigraphy and CT datasets were fused and displayed on a workstation with multiplanar and projection display capability. FINDINGS: Head and neck soft tissues are unremarkable. No hypermetabolic uptake is seen in the thyroid or neck soft tissues. A right-sided [id number] catheter is seen. The esophagus is air-filled and there is a patent distal esophageal stent in place. There is mildly hypermetabolic uptake surrounding the esophageal stent at the GE junction. Maximum standard uptake value 5.08. Previously, this was 3.73. The area of increased uptake is nearly circumferential at the level of the stent. The adrenal glands remain somewhat thickened morphologically unchanged. There is no focal hepatic mass or focal hepatic hypermetabolic uptake. No upper abdominal adenopathy is appreciated. Gallstones are noted. Mild abdominal wall uptake is seen associated with the feeding tube. Study is otherwise unremarkable. No abnormal pulmonary parenchymal or skeletal hypermetabolic uptake is seen. IMPRESSION: A distal esophageal stent is noted in place. There is mildly increased uptake nearly circumferentially involving the distal esophagus at the level of the stent. This appears more extensive than on the prior study. Maximum SUV value is slightly higher. There is no evidence of regional adenopathy or distant metastasis. <Electronically signed by Indio Mcdermott > 05/03/21 [id number]
== END ==
LOC: M PLARAD 08:09
PROVIDERS: ATTEND Internal Medicine Hematology & Oncology
DX: C15.5 Malignant neoplasm of lower third of esophagus (principal); Z92.3 Personal history of irradiation; Z92.21 Personal history of antineoplastic chemotherapy
CPT/HCPCS: 78815; A9552

== ENCOUNTER 2021-05-22 09:52 | Emergency (ER) | payer MEDICARE, OTHER ==
[~2021-05-22] VITALS: Ht 160 cm; Wt 45.0 kg
[2021-05-22] MEDS ORDERED: GASTROGRAFIN SOLUTION 30ML (Q9963) PO STA (10:17)
--- NOTE | 2021-05-22 10:50 | REP ---
INDICATION: for FT placement. COMPARISON: 12/12/2020 FINDINGS: Contrast has been injected in the enterostomy tube and a portion of small bowel has been opacified. There is no evidence of a bowel abnormality or obstruction. No abnormal extravasation of the injected contrast is identified. There is no evidence of free intraperitoneal air. The osseous structures are unchanged. A portion of a previously described esophageal stent is again identified. IMPRESSION: As above <Electronically signed by Mark Houser > 05/22/21 [id number]
[2021-05-22 11:20] VITALS: BP 141/66
== END 2021-05-22 11:24 | disposition home or self-care (01) ==
LOC: M ED 09:52
DX: L24.9 Irritant contact dermatitis, unspecified cause (principal); C15.5 Malignant neoplasm of lower third of esophagus; Z93.4 Other artificial openings of gastrointestinal tract status; E11.9 Type 2 diabetes mellitus without complications; I10 Essential (primary) hypertension; F17.200 Nicotine dependence, unspecified, uncomplicated; Z88.0 Allergy status to penicillin; Z91.013 Allergy to seafood; Z79.82 Long term (current) use of aspirin; Z79.899 Other long term (current) drug therapy
CPT/HCPCS: 74018; 99283; Q9963

== ENCOUNTER → 2021-05-22 | Outpatient (CLI) | payer MEDICARE, OTHER ==
--- NOTE | 2021-05-22 10:14 | REP ---
INDICATION: MALIGNANT NEOPLASM OF LOWER THIRD OF ESOPHAGUS. COMPARISON: Multiple the latest 01/04/2021 a portable exam TECHNIQUE: PA and lateral FINDINGS: The superior mediastinal structures are midline. The cardiac silhouette is unremarkable in size, shape, and position. The diaphragmatic surfaces of the lungs are regular, and the costophrenic angles are clear. The pulmonary pate are clear. The imaged osseous structures are intact. There is no change in the tip of the MediPort device remaining in the superior vena cava. Since the last examination a distal esophageal stent has been placed. IMPRESSION: There is no acute cardiopulmonary disease. <Electronically signed by Mark Houser > 05/22/21 [id number]
== END ==
LOC: M RAD 09:32
PROVIDERS: ATTEND Physician Assistant
DX: C15.5 Malignant neoplasm of lower third of esophagus (principal)

== ENCOUNTER → 2021-06-16 | Outpatient (CLI) | payer MEDICARE, OTHER ==
--- NOTE | 2021-06-16 17:05 | RADONC ---
Radiation Oncology Hx/FUP Radiation Oncology Hx/FUP Date of Service: Jun 16, 2021 Pt Identifier Krystal Olivas is a 70 year old female seen for a followup visit today at the department of radiation oncology for a history of locally advanced adenocarcinoma of the GEJ. She completed chemoradiation 45 Gy in 25 fractions 11/23/20-12/25/20. She was anticipated to have esophagectomy but on PET-CT from 02/03/21 she was noted to have CR. Surgery as an option was discussed @ [facility] however she was deemed too frail and so has been observed. She had a stent placed in April 2021. Repeat PET-CT 05/03/21 showed minor uptake around the stent. Because of concern for progression she has been started on Opdivo. Diagnosis/Treatment History Oncologic History As above Interval History Krystal is here with her daughter. Reports she is eating well. Weight is up 2 lbs over recent weeks. She feels well. Tolerated her first dose of opdivo without difficulty. Her main bother is her feeding tube. This leaks and davila her skin. Makes doing any physical activity uncomfortable. Current Therapy Nivolumab from 06/07/21 Stage Adenocarcinoma GEJ [id number] Social History: Former smoker 50+ pack year history Does not drink Allergies / Meds Allergies: Coded Allergies: shellfish derived (Verified Allergy, Intermediate, rash, vomiting, 10/17/20) Penicillins (Verified Adverse Reaction, Unknown, hyperventilation, 10/17/20) Home Meds Active Scripts Lidocaine/Prilocaine (Lidocaine-Prilocaine Cream) 2.5%/2.5% Cream..g., 1 APLCT TOP ASDIRECTED, #30 GRAM Prov:PATI MCCORMICK MD 06/08/21 Prochlorperazine Maleate (Prochlorperazine Maleate) 10 Mg Tablet, 10 MG PO Q6HP PRN for NAUSEA, #40 TAB Prov:ISABELA JENNINGS MD [facility] 04/16/21 Reported Medications Pantoprazole Sodium (Pantoprazole Sodium) 40 Mg Tablet., 1 DAILY 05/20/21 Metformin HCl (Metformin HCl) 1,000 Mg Tablet, 1000 MG PO BID, TAB 12/13/20 Aspirin (Aspirin EC) 81 Mg Tablet., 81 MG PO DAILY 10/17/20 Atenolol (Atenolol) 25 Mg Tablet, 25 MG PO DAILY 10/17/20 Rosuvastatin Calcium (Crestor) 5 Mg Tablet, 5 MG PO DAILY 10/17/20 Review of Systems Review of Systems Constitutional: Reports: Fatigue; Denies: Fever, Weight Loss Eyes: Denies: Pain HEENT: Denies: Head Aches Skin: Denies: Rash Pulmonary: Denies: Dyspnea, Cough Cardiovascular: Denies: Chest Pain, Palpitations Gastrointestinal: Reports: Abdominal Pain; Denies: Diarrhea Hematologic: Denies: Bruising, Bleeding Excessively Endocrine: Denies: Cold Intolerance Musculoskeletal: Denies: Neck pain, Arm pain, Back pain Neurological: Denies: Weakness, Numbness Psych: Reports: Mood Normal Physical Examination Vital Signs Wt 105 lbs T 97.2 P 88 RR 20 BP 128/63 O2 97% Pain 0 Fatigue 0 General Exam: Alert, Cooperative, No Acute Distress Eye Exam: PERRLA, EOMI ENT EXAM: Atraumatic, Pharynx Normal Neck Exam: Supple; Negative: Lymphadenopathy Chest Exam: Clear to auscultation, Normal air movement Heart Exam: Rate Normal, Regular Rhythm Abdomen Exam: Soft, Tenderness (Tender around PEG tube site) Extremity Exam: Negative: Edema Skin Exam: Nl turgor and temperature Neuro Exam: Normal Gait, Normal Speech, Cranial Nerves 3-12 NL Psych Exam: Mental status NL Diagnostic and Laboratory Diagnostic Review Radiologic images, relevant labs and pathology reports were personally reviewed and discussed with Ms. Olivas. Assessment and Plan Impression Assessment Ms. Olivas is a 70 year old female with a history of locally advanced adenocarcinoma of the GEJ. She completed chemoradiation 45 Gy in 25 fractions 11/23/20-12/25/20. She was anticipated to have esophagectomy but on PET-CT from 02/03/21 she was noted to have CR. Surgery as an option was discussed @ [facility] however she was deemed too frail and so has been observed. She had a stent placed in April 2021. Repeat PET-CT 05/03/21 showed minor uptake around the stent. Because of concern for progression she has been started on Opdivo. She is doing well. She is underweight but has been off tube feed for 4 weeks now and is holding a steady weight with PO intake only. Therefore I will place an order for her PEG tube to be removed as it is now only bothersome to her and she is stented. She has upcoming follow up with medical oncology. I will leave it to medical oncology to decide what the appropriate reimaging window is for her. I will see her again in 6 months time. Performance Status ECOG 1 Plan Referral to surgery for PEG removal Follow up in 6 months Imaging per medical oncology Ms. Olivas was encouraged to call with questions or concerns in the interim period. Billing Statement Total time of [29] minutes was spent preparing for the visit [2], obtaining HPI [8], examining the patient [3], reviewing diagnostic tests [4], discussing management options [5], coordinating care [2], and writing this note [5]. CHARLES VILLANUEVA MD Jun 16, 2021 17:05
== END ==
LOC: M ONCR 15:28
PROVIDERS: ATTEND General Practice
DX: C15.5 Malignant neoplasm of lower third of esophagus (principal); Z79.82 Long term (current) use of aspirin; Z79.84 Long term (current) use of oral hypoglycemic drugs; Z79.899 Other long term (current) drug therapy; Z87.891 Personal history of nicotine dependence; Z88.0 Allergy status to penicillin; Z91.013 Allergy to seafood; Z92.3 Personal history of irradiation

== ENCOUNTER → 2021-10-25 | Outpatient (CLI) | payer MEDICARE, OTHER ==
[~2021-10-25] MED LIST changes: +LONS0.27 PO; +LONS1TAB2 PO; +ONDA-84 PO; -ONDA8TAB10 PO; +PANT40TA29 PO; -PROC10TA4 PO; +PROC10TA5 PO; +SUCR1TA PO
== END ==
LOC: M RAD 09:06
PROVIDERS: ATTEND Physician Assistant
DX: C15.5 Malignant neoplasm of lower third of esophagus (principal)

== ENCOUNTER → 2021-11-22 | Outpatient (REF) | payer MEDICARE, OTHER ==
[2021-11-22 08:21] LABS: BASO % 0.7 % (0.0-1.0); EOS # 0.2 10^3/uL (0.0-0.5); EOS % 3.2 % (0.0-3.0); HEMATOCRIT 34.6 % (36.0-47.0); HEMOGLOBIN 11.1 g/dl (12.0-15.5); LYMPH % 17.3 % (24.0-44.0); MEAN CORPUSCULAR HEMOGLOBIN 29.1 pg (27.0-33.0); MEAN CORPUSCULAR HGB CONC 32.1 g/dl (32.0-36.5); MEAN CORPUSCULAR VOLUME 90.8 fl (80.0-96.0); MONO # 0.6 10^3/uL (0.0-0.8); MONO % 10.1 % (2.0-8.0); NEUTROPHILS # 3.9 10^3/uL (1.5-8.5); NEUTROPHILS % 68.5 % (36.0-66.0); PLATELET COUNT, AUTOMATED 209 10^3/uL (150-450); RED BLOOD COUNT 3.81 10^6/uL (4.00-5.40); WHITE BLOOD COUNT 5.7 10^3/uL (4.0-10.0)
[2021-11-22 08:54] LABS: ALBUMIN 2.8 GM/DL (3.2-5.2); ALT/SGPT 13 U/L (12-78); BILIRUBIN,TOTAL 0.4 MG/DL (0.2-1.0); BLOOD UREA NITROGEN 19 MG/DL (7-18); CALCIUM LEVEL 8.5 MG/DL (8.8-10.2); CARBON DIOXIDE LEVEL 27 MEQ/L (21-32); CHLORIDE LEVEL 106 MEQ/L (98-107); CHOLESTEROL LEVEL 216 MG/DL (<200); CHOLESTEROL RISK RATIO 3.223 (<5); CREATININE FOR GFR 0.95 MG/DL (0.55-1.30); GLOMERULAR FILTRATION RATE > 60.0 (>39); GLUCOSE, FASTING 115 MG/DL (70-100); HDL CHOLESTEROL 67 MG/DL (>40); LDL CHOLESTEROL 133 MG/DL (<100); NON-HDL-C 149 MG/DL; POTASSIUM SERUM 3.9 MEQ/L (3.5-5.1); SODIUM LEVEL 137 MEQ/L (136-145); TOTAL PROTEIN 6.6 GM/DL (6.4-8.2); TRIGLYCERIDES LEVEL 79 MG/DL (<150)
[2021-11-22 08:57] LABS: HEMOGLOBIN A1c 6.2 %
== END ==
LOC: M LAB REF 08:01
PROVIDERS: ATTEND Family Medicine
DX: E11.9 Type 2 diabetes mellitus without complications (principal)

== ENCOUNTER → 2021-12-22 | Outpatient (CLI) | payer MEDICARE, OTHER | LOC: M ONCR 15:24 | PROVIDERS: ATTEND Radiology Radiation Oncology | DX: C15.5 Malignant neoplasm of lower third of esophagus (principal); R10.9 Unspecified abdominal pain; Z79.84 Long term (current) use of oral hypoglycemic drugs; Z88.0 Allergy status to penicillin; Z91.013 Allergy to seafood ==

== ENCOUNTER → 2022-02-22 | Outpatient (CLI) | payer MEDICARE, OTHER | LOC: M PLARAD 10:32 | PROVIDERS: ATTEND Specialist | DX: C15.5 Malignant neoplasm of lower third of esophagus (principal) | CPT/HCPCS: 78815; A9552 ==

== ENCOUNTER → 2022-03-17 | Outpatient (CLI) | payer MEDICARE, OTHER ==
[~2022-03-17] MED LIST changes: +LIDO2SOL17 PO; +SUCR1SS PO
== END ==
LOC: M LABSMTC 09:43
PROVIDERS: ATTEND Anesthesiology
DX: Z01.812 Encounter for preprocedural laboratory examination (principal); Z11.52 Encounter for screening for COVID-19

== ENCOUNTER 2022-03-22 10:33 | Day surgery (SDC) | payer MEDICARE, OTHER ==
[~2022-03-22] VITALS: Ht 157.5 cm; Wt 44.9 kg
[~2022-03-22 10:33] MED LIST changes: +NS 1,000 ML IV ONE; +SODIUM CHLORIDE 0.9% INJ 10 ML SYR IV SCH
[2022-03-22] MEDS ORDERED: SODIUM CHLORIDE 0.9% INJ 10 ML SYR IV PRN (11:30)
[2022-03-22] MEDS ORDERED: propofoL 200 MG/20 ML VIAL As Ordered ONE (11:51)
[2022-03-22] MEDS ORDERED: LIDOCAINE 2% 100MG/5ML SDV (FOR ANES.) As Ordered ONE (11:51)
[2022-03-22 12:30] VITALS: BP 132/67
== END 2022-03-22 12:55 | disposition home or self-care (01) ==
LOC: M OPP 10:33
PROVIDERS: ATTEND Internal Medicine Gastroenterology
DX: R13.10 Dysphagia, unspecified (principal); Z85.01 Personal history of malignant neoplasm of esophagus; K22.10 Ulcer of esophagus without bleeding; K22.89 Other specified disease of esophagus; I10 Essential (primary) hypertension; E11.9 Type 2 diabetes mellitus without complications; M19.90 Unspecified osteoarthritis, unspecified site; F41.9 Anxiety disorder, unspecified; E78.00 Pure hypercholesterolemia, unspecified; Z92.21 Personal history of antineoplastic chemotherapy; Z92.3 Personal history of irradiation; Z87.891 Personal history of nicotine dependence; Z88.0 Allergy status to penicillin; Z91.013 Allergy to seafood; Z79.82 Long term (current) use of aspirin; Z79.84 Long term (current) use of oral hypoglycemic drugs; Z79.899 Other long term (current) drug therapy; Z82.49 Family history of ischemic heart disease and other diseases of the circulatory system; Z82.3 Family history of stroke
CPT/HCPCS: 43235; J1642

== ENCOUNTER 2022-04-19 19:57 | Inpatient (IN) | payer OTHER, MEDICARE ==
[~2022-04-19] VITALS: Ht 154.9 cm; Wt 51.3 kg
[~2022-04-19 19:57] MED LIST changes: +DEXA4TA PO; +LEVO25TA5 PO; +METH-1177 PO; -NS 1,000 ML IV ONE; +ONDA4TAB6 PO; -SODIUM CHLORIDE 0.9% INJ 10 ML SYR IV SCH
[2022-04-19] MEDS ORDERED: NS 1,000 ML IV ONE ×3 (20:15→23:05)
[2022-04-19] MEDS ORDERED: SODIUM CHLORIDE 0.9% INJ 10 ML SYR IV PRN ×2 (20:15→23:05)
[2022-04-19] MEDS ORDERED: ONDANSETRON 4MG 2ML VIAL IV ONE (20:25)
[2022-04-19 20:50] LABS: BASO % 1.6 % (0.0-1.0); HEMATOCRIT 30.6 % (36.0-47.0); LYMPH # 0.3 10^3/uL (1.5-5.0); LYMPH % 49.2 % (24.0-44.0); MEAN CORPUSCULAR HEMOGLOBIN 27.9 pg (27.0-33.0); MEAN CORPUSCULAR HGB CONC 32.7 g/dl (32.0-36.5); MEAN CORPUSCULAR VOLUME 85.5 fl (80.0-96.0); MONO # 0.2 10^3/uL (0.0-0.8); MONO % 27.9 % (2.0-8.0); RED BLOOD COUNT 3.58 10^6/uL (4.00-5.40)
[2022-04-19 20:54] LABS: NEUTROPHILS # 0.1 10^3/uL (1.5-8.5); PLATELET COUNT, AUTOMATED 54 10^3/uL (150-450); WHITE BLOOD COUNT 0.6 10^3/uL (4.0-10.0)
[2022-04-19] MEDS ORDERED: CEFEPIME HCL 2 GM in D5W MINI-BAG PLUS 50 ML IV ONE (21:10)
[2022-04-19] MEDS ORDERED: VANCOMYCIN HCL 750 MG, VIAL MATE ADAPTER 1 EACH in NS 250 ML IV ONE (21:10)
[2022-04-19] MEDS ORDERED: NS 1,220 ML in IV 1 EA IV ONE (21:10)
[2022-04-19 21:20] LABS: RSV AMPLIFICATION NEGATIVE (NEGATIVE)
[2022-04-19] MEDS ORDERED: FILGRASTIM 480 MCG/0.8 ML SYRINGE **SC ADMINISTRATION ONLY SC ONE (21:35)
[2022-04-19 21:38] LABS: ALBUMIN 2.3 GM/DL (3.2-5.2); BILIRUBIN,DIRECT 0.4 MG/DL (0.0-0.2); BILIRUBIN,TOTAL 0.8 MG/DL (0.2-1.0); CALCIUM LEVEL 7.9 MG/DL (8.8-10.2); CREATININE FOR GFR 1.59 MG/DL (0.55-1.30); GLOMERULAR FILTRATION RATE 33.9 (>39); POTASSIUM SERUM 2.7 MEQ/L (3.5-5.1); TOTAL PROTEIN 5.4 GM/DL (6.4-8.2)
[2022-04-19] MEDS ORDERED: KCL 20MEQ IN 100ML SWI (KRUN) 20 MEQ in IV 1 EA IV ONE ×2 (21:40)
[2022-04-19] MEDS ORDERED: HEPARIN SOD (PORCINE) 5000UNITS/ML 1ML VIAL/SYRINGE SC SCH (22:15)
[2022-04-19] MEDS ORDERED: ACETAMINOPHEN TAB 650MG DOSE (2X325MG) PO PRN (22:15)
[2022-04-19] MEDS ORDERED: VANCOMYCIN HCL 1,000 MG, VIAL MATE ADAPTER 1 EACH in NS 250 ML IV SCH (22:15)
[2022-04-19] MEDS ORDERED: METOCLOPRAMIDE INJ 10MG/2ML VIAL (J2765 PER 1) IV PRN (22:25)
[2022-04-19] MEDS: NS 1,000 ML IV SCH (22:30)
[2022-04-19 22:31] LABS: INR 1.19; PROTHROMBIN TIME 15.6 SECONDS (12.7-14.5)
[2022-04-19 22:32] LABS: PARTIAL THROMBOPLASTIN TIME 38.3 SECONDS (25.9-37.0)
[2022-04-19 22:39] LABS: MAGNESIUM LEVEL 1.4 MG/DL (1.8-2.4)
[2022-04-19] MEDS ORDERED: HYDROCORTISONE 100 MG/2 ML VIAL (J1720 PER 1) As Ordered ONE (22:54)
[2022-04-19] MEDS ORDERED: HYDROCORTISONE 100 MG/2 ML VIAL (J1720 PER 1) IV ONE (22:55)
[2022-04-19] MEDS ORDERED: MAG SULF 1GM/100ML (MAG RUN) 1 GM in IV 1 EA IV ONE (22:55)
[2022-04-19] MEDS ORDERED: MIDODRINE 5 MG TAB PO ONE (23:45)
[2022-04-19] MEDS ORDERED: ACETAMINOPHEN 650 MG SUPP PR PRN (23:55)
[2022-04-20] VITALS (100 sets, daily range): BP systolic 63–148; BP diastolic 36–98
[2022-04-20] MEDS ORDERED: PIPERACILLIN/TAZOBACTAM SOD 3.375 GM in D5W MINI-BAG PLUS 50 ML IV SCH ×2
[2022-04-20 00:36] LABS: APPEARANCE, URINE MANUAL CLEAR (CLEAR); COLOR, URINE MANUAL YELLOW (YELLOW)
[2022-04-20 00:37] LABS: GLUCOSE, URINE (UA) MANUAL NEGATIVE (NEGATIVE); PROTEIN, URINE MANUAL 2+ mg/dL (NEGATIVE)
[2022-04-20 00:38] LABS: BILIRUBIN, URINE MANUAL NEGATIVE (NEGATIVE); BLOOD URINE MANUAL TRACE (NEGATIVE); KETONE, URINE MANUAL 2+ mg/dL (NEGATIVE); LEUKOCYTE ESTERASE, URINE MAN TRACE (NEGATIVE); NITRITE, URINE MANUAL NEGATIVE (NEGATIVE); UROBILINOGEN, URINE MANUAL NORMAL (NORMAL)
[2022-04-20] MEDS: NOREPINEPHRINE/DEXTROSE 8 MG in IV 1 EA IV SCH ×5 (00:43→01:20)
[2022-04-20 00:48] LABS: SQUAMOUS EPITHELIAL CELL URINE SMALL AMOUNT /hpf (SMALL AMT); TRANSITIONAL EPI CELLS, URINE SMALL AMOUNT /hpf
[2022-04-20 00:49] LABS: AMORPHOUS SEDIMENT, URINE SMALL AMOUNT (NEGATIVE); BACTERIA, URINE SMALL AMOUNT; HYALINE CAST, URINE NONE SEEN /lpf (0-1); MUCUS, URINE SMALL AMOUNT (NEGATIVE)
[2022-04-20] MEDS: KCL 20MEQ IN 100ML SWI (KRUN) 20 MEQ in IV 1 EA IV SCH ×4 (01:00)
[2022-04-20] MEDS ORDERED: GLUCAGON INJ 1MG VIAL SC PRN (01:25)
[2022-04-20] MEDS ORDERED: DEXTROSE 50% 50 ML SYRINGE IV PRN (01:25)
[2022-04-20] MEDS ORDERED: GLUCOSE 4GM CHEW TABLET PO PRN (01:25)
[2022-04-20] MEDS ORDERED: TRAN1DIS4 TOP (01:36)
[2022-04-20] MEDS ORDERED: HOME MED LIST COMPLETE! XX SCH (01:40)
[2022-04-20] MEDS: metroNIDAZOLE 500 MG in IV 1 EA IV SCH ×3 (02:00→18:35)
[2022-04-20] MEDS: NS 1,000 ML IV SCH ×2 (03:23→06:23)
[2022-04-20] MEDS ORDERED: NOREPINEPHRINE/DEXTROSE 8 MG in IV 1 EA IV SCH (05:00)
[2022-04-20] MEDS: NOREPINEPHRINE BITARTRATE 16 MG in D5W 484 ML IV SCH (05:08)
[2022-04-20] MEDS: VASOPRESSIN INJ 20 UNITS in NS 499 ML IV SCH ×3 (05:08→15:30)
[2022-04-20 05:58] LABS: HEMATOCRIT 28.4 % (36.0-47.0); HEMOGLOBIN 8.9 g/dl (12.0-15.5); MEAN CORPUSCULAR HEMOGLOBIN 28.3 pg (27.0-33.0); MEAN CORPUSCULAR HGB CONC 31.3 g/dl (32.0-36.5); MEAN CORPUSCULAR VOLUME 90.4 fl (80.0-96.0); RED BLOOD COUNT 3.14 10^6/uL (4.00-5.40); WHITE BLOOD COUNT 1.2 10^3/uL (4.0-10.0)
[2022-04-20 06:00] LABS: PLATELET COUNT, AUTOMATED 71 10^3/uL (150-450)
[2022-04-20 06:20] LABS: CREATININE FOR GFR 1.74 MG/DL (0.55-1.30); GLOMERULAR FILTRATION RATE 30.5 (>39); POTASSIUM SERUM 4.8 MEQ/L (3.5-5.1)
[2022-04-20 06:21] LABS: CALCIUM LEVEL 6.5 MG/DL (8.8-10.2); MAGNESIUM LEVEL 1.3 MG/DL (1.8-2.4)
[2022-04-20] MEDS: MAG SULF 1GM/100ML (MAG RUN) 1 GM in IV 1 EA IV SCH ×2 (06:45→08:09)
[2022-04-20] MEDS: INSULIN LISPRO (NovoLOG) PER UNIT SC SCH ×3 (07:30→17:30)
[2022-04-20] MEDS: SODIUM CHLORIDE 0.9% INJ 10 ML SYR IV SCH (08:10)
[2022-04-20] MEDS: ONDANSETRON 4MG 2ML VIAL IV PRN ×2 (11:06→19:58)
[2022-04-20] MEDS: FILGRASTIM 480 MCG/0.8 ML SYRINGE **SC ADMINISTRATION ONLY SC SCH (12:24)
[2022-04-20] MEDS ORDERED: NS 1,000 ML IV ONE (16:00)
[2022-04-20 17:47] LABS: ABG BASE EXCESS -17.6 (-2.0-2.0); ABG HCO3 10.4 MEQ/L (22.0-26.0); ABG O2 SATURATION 97.2 % (95.0-99.0); ABG PARTIAL PRESSURE CO2 32.1 mmHg (35.0-45.0); ABG PARTIAL PRESSURE O2 108.8 mmHg (75.0-100.0); ABG STANDARD HCO3 11.1 MEQ/L (22.0-26.0); ABG TOTAL CO2 11.4 MEQ/L (23.0-31.0)
[2022-04-20 17:48] LABS: ABG pH (ARTERIAL) 7.127 UNITS (7.350-7.450)
[2022-04-20] MEDS: CEFEPIME HCL 2 GM in D5W MINI-BAG PLUS 50 ML IV SCH (17:48)
[2022-04-20] MEDS ORDERED: SODIUM BICARBONATE 8.4% INJ 50 ML SYRINGE IV STA ×2 (17:58→18:49)
[2022-04-20] MEDS ORDERED: RIVAROXABAN 10MG TAB (XARELTO) PO SCH (18:00)
[2022-04-20] MEDS ORDERED: RIVAROXABAN 15MG TAB (XARELTO) PO SCH (18:00)
[2022-04-20 18:51] LABS: CALCIUM LEVEL 6.5 MG/DL (8.8-10.2); CREATININE FOR GFR 1.69 MG/DL (0.55-1.30); GLOMERULAR FILTRATION RATE 31.6 (>39); POTASSIUM SERUM 4.5 MEQ/L (3.5-5.1)
[2022-04-20] MEDS: VANCOMYCIN HCL 750 MG, VIAL MATE ADAPTER 1 EACH in D5W 250 ML IV SCH (19:48)
[2022-04-20] MEDS: SODIUM BICARBONATE 150 MEQ in STERILE WATER LITER BAG 1,000 ML IV SCH (20:02)
[2022-04-20 20:35] LABS: CALCIUM LEVEL 6.4 MG/DL (8.8-10.2); CREATININE FOR GFR 1.73 MG/DL (0.55-1.30); GLOMERULAR FILTRATION RATE 30.7 (>39); POTASSIUM SERUM 4.1 MEQ/L (3.5-5.1)
[2022-04-20] MEDS ORDERED: INSULIN LISPRO (NovoLOG) PER UNIT SC SCH (21:00)
[2022-04-20 21:25] LABS: ABG BASE EXCESS -17.4 (-2.0-2.0); ABG HCO3 10.4 MEQ/L (22.0-26.0); ABG PARTIAL PRESSURE CO2 31.8 mmHg (35.0-45.0); ABG PARTIAL PRESSURE O2 82.6 mmHg (75.0-100.0); ABG STANDARD HCO3 11.1 MEQ/L (22.0-26.0); ABG TOTAL CO2 11.4 MEQ/L (23.0-31.0); ABG pH (ARTERIAL) 7.133 UNITS (7.350-7.450)
[2022-04-21] VITALS (43 sets, daily range): BP systolic 63–143; BP diastolic 36–84
[2022-04-21 00:04] LABS: CALCIUM LEVEL 6.4 MG/DL (8.8-10.2); CREATININE FOR GFR 1.9 MG/DL (0.55-1.30); GLOMERULAR FILTRATION RATE 27.6 (>39); POTASSIUM SERUM 4.3 MEQ/L (3.5-5.1)
[2022-04-21] MEDS: metroNIDAZOLE 500 MG in IV 1 EA IV SCH ×3 (01:31→18:40)
[2022-04-21 04:07] LABS: ABG BASE EXCESS -16.1 (-2.0-2.0); ABG HCO3 10.6 MEQ/L (22.0-26.0); ABG O2 SATURATION 97.8 % (95.0-99.0); ABG PARTIAL PRESSURE O2 114.5 mmHg (75.0-100.0); ABG STANDARD HCO3 12.1 MEQ/L (22.0-26.0); ABG TOTAL CO2 11.5 MEQ/L (23.0-31.0)
[2022-04-21 04:10] LABS: ABG pH (ARTERIAL) 7.196 UNITS (7.350-7.450)
[2022-04-21 04:14] LABS: HEMATOCRIT 29.5 % (36.0-47.0); HEMOGLOBIN 9.3 g/dl (12.0-15.5); MEAN CORPUSCULAR HEMOGLOBIN 28.6 pg (27.0-33.0); MEAN CORPUSCULAR HGB CONC 31.5 g/dl (32.0-36.5); MEAN CORPUSCULAR VOLUME 90.8 fl (80.0-96.0); RED BLOOD COUNT 3.25 10^6/uL (4.00-5.40); WHITE BLOOD COUNT 2.6 10^3/uL (4.0-10.0)
[2022-04-21 04:15] LABS: PLATELET COUNT, AUTOMATED 64 10^3/uL (150-450)
[2022-04-21 04:36] LABS: CALCIUM LEVEL 6.4 MG/DL (8.8-10.2); CREATININE FOR GFR 1.97 MG/DL (0.55-1.30); GLOMERULAR FILTRATION RATE 26.5 (>39); MAGNESIUM LEVEL 1.9 MG/DL (1.8-2.4); POTASSIUM SERUM 4.1 MEQ/L (3.5-5.1)
[2022-04-21] MEDS: NOREPINEPHRINE BITARTRATE 16 MG in D5W 484 ML IV SCH ×2 (04:47→07:33)
[2022-04-21] MEDS: VASOPRESSIN INJ 20 UNITS in NS 499 ML IV SCH ×3 (04:47→17:05)
[2022-04-21] MEDS: INSULIN LISPRO (NovoLOG) PER UNIT SC SCH ×4 (07:30→23:07)
[2022-04-21] MEDS: SODIUM CHLORIDE 0.9% INJ 10 ML SYR IV SCH (09:39)
[2022-04-21 09:40] LABS: CALCIUM LEVEL 6.4 MG/DL (8.8-10.2); CREATININE FOR GFR 2.14 MG/DL (0.55-1.30); MAGNESIUM LEVEL 1.9 MG/DL (1.8-2.4); POTASSIUM SERUM 4.5 MEQ/L (3.5-5.1)
[2022-04-21] MEDS: FILGRASTIM 480 MCG/0.8 ML SYRINGE **SC ADMINISTRATION ONLY SC SCH (10:17)
[2022-04-21] MEDS ORDERED: GLUCAGON INJ 1MG VIAL SC PRN (10:55)
[2022-04-21] MEDS ORDERED: HEPARIN DRIP 25,000 UNITS in IV 1 EA IV SCH (10:55)
[2022-04-21] MEDS ORDERED: GLUCOSE 4GM CHEW TABLET PO PRN (10:55)
[2022-04-21] MEDS ORDERED: HEPARIN SOD (PORCINE) 5000UNITS/ML 1ML VIAL/SYRINGE IV ONE (10:55)
[2022-04-21] MEDS ORDERED: HEPARIN SOD (PORCINE) 5000UNITS/ML 1ML VIAL/SYRINGE IV PRN (10:55)
[2022-04-21] MEDS: SODIUM BICARBONATE 150 MEQ in STERILE WATER LITER BAG 1,000 ML IV SCH (11:18)
[2022-04-21 12:41] LABS: CK-MB VALUE MASS 32.1 NG/ML (<3.6); MB/CK RELATIVE INDEX 2.31 (< OR =4)
[2022-04-21 12:42] LABS: CALCIUM LEVEL 6.3 MG/DL (8.8-10.2); CREATININE FOR GFR 2.14 MG/DL (0.55-1.30); MAGNESIUM LEVEL 2.1 MG/DL (1.8-2.4); POTASSIUM SERUM 4.6 MEQ/L (3.5-5.1)
[2022-04-21 16:15] LABS: ABG BASE EXCESS -12.9 (-2.0-2.0); ABG HCO3 14.2 MEQ/L (22.0-26.0); ABG O2 SATURATION 89.8 % (95.0-99.0); ABG PARTIAL PRESSURE O2 65.6 mmHg (75.0-100.0); ABG STANDARD HCO3 14.2 MEQ/L (22.0-26.0); ABG TOTAL CO2 15.3 MEQ/L (23.0-31.0); ABG pH (ARTERIAL) 7.202 UNITS (7.350-7.450)
[2022-04-21 16:56] LABS: CALCIUM LEVEL 6.3 MG/DL (8.8-10.2); CREATININE FOR GFR 2.27 MG/DL (0.55-1.30); GLOMERULAR FILTRATION RATE 22.5 (>39); POTASSIUM SERUM 4.7 MEQ/L (3.5-5.1)
[2022-04-21] MEDS: CEFEPIME HCL 2 GM in D5W MINI-BAG PLUS 50 ML IV SCH (17:05)
[2022-04-21] MEDS: DEXTROSE 50% 50 ML SYRINGE IV PRN ×2 (18:50→23:10)
[2022-04-21] MEDS ORDERED: MICAFUNGIN SODIUM 100 MG in D5W MINI-BAG PLUS 100 ML IV SCH (21:00)
[2022-04-21] MEDS: VANCOMYCIN HCL 750 MG, VIAL MATE ADAPTER 1 EACH in D5W 250 ML IV SCH (21:07)
[2022-04-22] VITALS (10 sets, daily range): BP systolic 92–147; BP diastolic 43–66
[2022-04-22] MEDS: SODIUM BICARBONATE 150 MEQ in STERILE WATER LITER BAG 1,000 ML IV SCH (01:56)
[2022-04-22] MEDS: metroNIDAZOLE 500 MG in IV 1 EA IV SCH (01:57)
[2022-04-22 04:38] LABS: HEMATOCRIT 27.7 % (36.0-47.0); HEMOGLOBIN 8.8 g/dl (12.0-15.5); MEAN CORPUSCULAR HEMOGLOBIN 28.5 pg (27.0-33.0); MEAN CORPUSCULAR HGB CONC 31.8 g/dl (32.0-36.5); MEAN CORPUSCULAR VOLUME 89.6 fl (80.0-96.0); RED BLOOD COUNT 3.09 10^6/uL (4.00-5.40); WHITE BLOOD COUNT 6.9 10^3/uL (4.0-10.0)
[2022-04-22 04:41] LABS: PLATELET COUNT, AUTOMATED 67 10^3/uL (150-450)
[2022-04-22 05:23] LABS: CALCIUM LEVEL 5.9 MG/DL (8.8-10.2); CREATININE FOR GFR 2.67 MG/DL (0.55-1.30); GLOMERULAR FILTRATION RATE 18.6 (>39); MAGNESIUM LEVEL 1.9 MG/DL (1.8-2.4); POTASSIUM SERUM 4.8 MEQ/L (3.5-5.1)
[2022-04-22] MEDS: INSULIN LISPRO (NovoLOG) PER UNIT SC SCH (05:24)
[2022-04-22] MEDS ORDERED: CALCIUM GLUCONATE 1,000 MG in D5W MINI-BAG PLUS 100 ML IV ONE (06:00)
[2022-04-22 09:51] LABS: ALBUMIN 1.5 GM/DL (3.2-5.2)
== END 2022-04-22 09:35 | disposition expired | DRG 871 ==
LOC: EDBD 19:57 → M ED 19:57 → M ED INP 22:14 → M ICU 04-20 02:58
PROVIDERS: ADMIT Family Medicine; ATTEND Family Medicine
PROC: 05HM33Z Insertion of Infusion Device into Right Internal Jugular Vein, Percutaneous Approach (ICD-10-PCS; principal; 2022-04-20)
PROC: 4A133B1 Monitoring of Arterial Pressure, Peripheral, Percutaneous Approach (ICD-10-PCS; 2022-04-20)
DX: A41.9 Sepsis, unspecified organism (principal); R65.21 Severe sepsis with septic shock; D61.810 Antineoplastic chemotherapy induced pancytopenia; I21.4 Non-ST elevation (NSTEMI) myocardial infarction; N17.9 Acute kidney failure, unspecified; C15.9 Malignant neoplasm of esophagus, unspecified; E87.2 Acidosis; T45.1X5A Adverse effect of antineoplastic and immunosuppressive drugs, initial encounter; I10 Essential (primary) hypertension; E11.51 Type 2 diabetes mellitus with diabetic peripheral angiopathy without gangrene; J44.9 Chronic obstructive pulmonary disease, unspecified; E03.9 Hypothyroidism, unspecified; E78.5 Hyperlipidemia, unspecified; E87.6 Hypokalemia; Z92.21 Personal history of antineoplastic chemotherapy; R11.2 Nausea with vomiting, unspecified; Z66 Do not resuscitate; Z88.0 Allergy status to penicillin; Z91.013 Allergy to seafood; Z79.899 Other long term (current) drug therapy; Z98.41 Cataract extraction status, right eye; Z98.42 Cataract extraction status, left eye; Z79.01 Long term (current) use of anticoagulants